=== PATIENT | female | born 1930 ===

== ENCOUNTER 2017-01-17 11:44 | Inpatient (IN) | payer MEDICARE, MEDICAID ==
[2017-01-17 11:44] VITALS: BMI 33.5
[2017-01-17 12:58] LABS: BASO # 0.2 K/uL (0.0-0.2); BASO % 1.3 % (0.0-2.0); EOS # 0.4 K/uL (0.0-0.7); HEMATOCRIT 45.3 % (34.0-47.0); LYMPH # 2.1 K/uL (1.0-4.3); LYMPH % 13.8 % (20.0-40.0); MEAN CELL VOLUME 81.4 fL (81.0-99.0); MEAN CORPUSCULAR HEMOGLOBIN 26.9 pg (27.0-31.0); MEAN CORPUSCULAR HGB CONC 33.1 g/dL (33.0-37.0); MONO # 0.7 K/uL (0.0-0.8); MONO % 4.9 % (0.0-10.0); NRBC % 0.2 % (0.0-2.0); RED CELL DISTRIBUTION WIDTH 14.9 % (11.5-14.5)
[2017-01-17 13:07] LABS: CHLORIDE 96 mmol/L (98-107); POTASSIUM 4.1 mmol/L (3.6-5.2); SODIUM 140 mmol/L (132-148)
[2017-01-17 13:09] LABS: GFR AFRICAN-AMERICAN > 60
[2017-01-17 13:10] LABS: ALB/GLOB RATIO 1.2 (1.0-2.1); ALKALINE PHOSPHATASE 79 U/L (38-126); ALT/SGPT 20 U/L (9-52); AST/SGOT 32 U/L (14-36); BILIRUBIN,TOTAL 1.1 mg/dL (0.2-1.3); BLOOD UREA NITROGEN 18 mg/dL (7-17); CARBON DIOXIDE 27 mmol/L (22-30); GLUCOSE,RANDOM 121 mg/dL (65-105)
[2017-01-17] MEDS ORDERED: Aspirin 325 mg EC Tablets PO STA (14:01)
[2017-01-17] MEDS ORDERED: Nitroglycerin 2% Ointment Foilpak UD TOP STA (14:01)
[2017-01-17] MEDS ORDERED: Aspirin 325 mg EC Tablets PO ONE (14:09)
[2017-01-17] MEDS ORDERED: Nitroglycerin 2% Ointment Foilpak UD TOP ONE (14:09)
--- NOTE | 2017-01-17 15:13 | C.PDOC ---
History Of Present Illness Pt c/o chest pain radiating to left shoulder/arm. Time Seen by Provider: 01/17/17 13:51 Chief Complaint (Nursing): Chest Pain History Per: Patient, Other (Home health aid) Onset/Duration Of Symptoms: Days (1) Current Symptoms Are (Timing): Still Present Severity: Moderate Quality: "Pain" Associated Symptoms: Other (dizziness) Modifying Factors: Other Indicated Below Exacerbating Factors: None Alleviating Factors: None Additional History Per: Prior Records Past Medical History Reviewed: Historical Data, Nursing Documentation, Vital Signs Vital Signs: Last Vital Signs Temp 98.9 F 01/17/17 14:17 Pulse 75 01/17/17 14:17 Resp 19 01/17/17 14:17 BP 156/82 H 01/17/17 14:17 Pulse Ox 98 01/17/17 14:17 - Medical History PMH: CAD, COPD, HTN, Hypercholesterolemia Surgical History: Cholecystectomy, Coronary Stent, - [facility] Procedures EXCISION OF STOMACH, ENDO, DIAGN (11/19/15) OTHER ENDOSCOPY OF SM INTEST (01/02/14) RADIOGRAPHY OF GALLBLADDER & BILE DUCT USING L OSM CONTRAST (11/21/15) RESECTION OF GALLBLADDER, PERCUTANEOUS ENDOSCOPIC APPROACH (11/21/15) ULTRASONOGRAPHY OF GALLBLADDER AND BILE DUCTS (11/19/15) Family History: States: Unknown Family Hx - Social History Hx Tobacco Use: No Hx Alcohol Use: No Hx Substance Use: No - Immunization History Hx Tetanus Toxoid Vaccination: Yes Hx Influenza Vaccination: Yes Hx Pneumococcal Vaccination: Yes Review Of Systems Except As Marked, All Systems Reviewed And Found Negative. Constitutional: Negative for: Fever Cardiovascular: Positive for: Chest Pain Respiratory: Positive for: Shortness of Breath (mild chronic). Negative for: Hemoptysis Gastrointestinal: Negative for: Vomiting, Abdominal Pain Musculoskeletal: Negative for: Leg Pain Skin: Negative for: Rash Neurological: Negative for: Weakness, Numbness, Seizures, Altered Mental Status Physical Exam - Physical Exam Appears: No Acute Distress, Chronically Ill Skin: Normal Color, Warm, Dry, No Rash Head: Atraumatic, Normacephalic Eye(s): bilateral: PERRL, EOMI Neck: Normal ROM, Supple Chest: Symmetrical, No Deformity Cardiovascular: Rhythm Regular Respiratory: Normal Breath Sounds, No Accessory Muscle Use Gastrointestinal/Abdominal: Soft, No Tenderness Back: No CVA Tenderness Extremity: Normal ROM, No Calf Tenderness Neurological/Psych: Oriented x3, Normal Motor, Normal Sensation ED Course And Treatment - Laboratory Results Result Diagrams: 01/17/17 12:50 01/17/17 12:50 ECG: Interpreted By Me, Viewed By Me ECG Rhythm: Sinus Rhythm, Nonspecific Changes ECG Interpretation: Abnormal Interpretation Of ECG: LVH with strain pattern. Rate From EC O2 Sat by Pulse Oximetry: 98 Pulse Ox Interpretation: Normal - Radiology CXR: Interpreted by Me, Viewed By Me CXR Interpretation: Yes: No Acute Disease Progress - Interventions Interventions:: Observation, Oxygen - Medications Administered Oral: Aspirin - Data Reviewed Data Reviewed: Lab, Diagnostic imaging, EKG, Old records - Patient Status Patient status: Partially improved - Continuity of Care Discussed patient case with:: Patient, ED Nurse, PMD - Patient Plan Patient Plan: Admission, Telemetry Disposition Discussed With DrStacie: Misty Castillo Comment: He agreed with current ED management and accepted pt on his service. Doctor Will See Patient In The: Hospital Counseled Patient/Family Regarding: Studies Performed, Diagnosis - Disposition Disposition: HOSPITALIZED Disposition Time: 15:17 Condition: FAIR - Clinical Impression Clinical Impression: Chest pain, Coronary artery disease
--- NOTE | 2017-01-17 16:09 | RAD ---
PROCEDURE: CHEST RADIOGRAPH, 1 VIEW HISTORY: chest pain COMPARISON: 11/14/2016 FINDINGS: LUNGS: Mild venous congestion. Patchy bibasilar airspace opacities. Small left pleural effusion. PLEURA: As above. CARDIOVASCULAR: Tortuous aorta. OSSEOUS STRUCTURES: Degenerative changes in the spine and shoulders. VISUALIZED UPPER ABDOMEN: Normal. OTHER FINDINGS: None. IMPRESSION: Mild venous congestion. Patchy bibasilar airspace opacities. Small left pleural effusion.
--- NOTE | 2017-01-17 20:55 | CP.PCM.HP ---
History of Present Illness - History of Present Illness History of Present Illness: COMPREHENSIVE HISTORY & PHYSICAL EXAM HPI 86 years old female with history of coronary artery disease with 2 stents complaining of retrosternal chest discomfort radiating to her left arm associated with diaphoresis and sweaty feeling. Pain is sometimes at rest and more on exertion. Patient had a stent inserted last year in circumflex and RCA artery. PAST HIST. Patient a history of insulin-dependent diabetes, hypertension, coronary artery disease, CHF, COPD, diverticulosis, peripheral arterial disease with stent insertion. PERSONAL HIST: Smoking. N Alcohol. N Allergy N Travel_- . FAMILY HIST : ROS : Constitutional: Negative for weight change, chills, night sweats Eyes: Negative for redness, swelling, itching, discharge, vision changes, blurry vision, double vision, glaucoma, cataracts, Ears: Negative for hearing loss, ringing, , tinnitus, vertigo Nose: Negative for rhinorrhea, stuffiness, sniffing, itching, postnasal drip, discoloration, nasal congestion and epistaxis. Throat: Negative for throat clearing, sore throat, hoarseness, difficulty swallowing and difficulty speaking. Respiratory: Negative for cough, chest tightness, sputum or phlegm, chronic cough, hemoptysis, wheezing, snoring at night, pleuritic chest pain and daytime somnolence. Cardiovascular:positive for chest pain, palpitations, orthopnea, PND, no Edema of legs, leg cramps, angina, claudication, , irregular heartbeat, Neurology: Negative for irritability, muscle weakness, numbness and tingling, seizures, tremors, migraines, slurred speech, syncope, memory loss, mood changes , recurrent headaches Gastrointestinal: Negative for difficulty swallowing, diarrhea, constipation, black stools, rectal bleeding, nausea, flatulence, reflux, poor appetite, changes in bowel habits, abdominal pain Genitourinary: Negative for frequent urination, hematuria, discharge, incontinence, urinary retention, frequent UTI, Psychiatric: Negative for depression, anxiety/panic, suicidal tendencies, Musculoskeletal: Negative for swollen joints, back pain, , neck pain, morning stiffness of joints, . Skin: Negative for rash, ulcers, itching, dry skin and pigmented lesions. P/E: Constitutional: Appears stated age and in no apparent distress. Head: Normocephalic. Ears: External ear canals patent without inflammation. Tympanic membranes intact with normal light reflex and landmark. Eyes: Pupils are central, bilaterally equal, symmetrical and reacts to light with normal movements and no icterus or pallor. Nose: External nares are patent. Mucosa is pink Mouth-Throat: Good general appearance and condition. No post-pharyngeal/oropharyngeal erythema and tonsillar hypertrophy. Good dental hygiene. Neck-Lymphatic: Neck is supple with normal ROM, no thyromegaly, lymph nodes or masses. JVD is normal with no carotid bruit. Lungs: Clear to percussion and auscultation with bilateral normal air entry. Cardiovascular: S1 and S2 are normal with no murmurs, gallops and rub. GI Exam: No hepatomegaly. Abdomen is soft and non-tender. No Organomegaly , masses or hernias are evident and bowel sounds are normal and active. Neurology: Higher function and all cranial nerves intact, with no gross motor or sensory deficit. Superficial and deep reflexes are normal with downwards planters. No cerebellar deficit with normal gait. Musculoskeletal: No tender spots with normal curvature of the spine with no swelling or restricted ROM of the small and large joints. Extremities: Homans sign absent. Intact pulses with no pitting edema, calf tenderness or skin color changes. Skin: No rash, eruptions or abnormal skin pigmentation LAB/RADIOLOGY: ASSESMENT : Unstable angina, coronary artery disease with previous stents. Well monitor the patient on telemetry with serial enzymes and EKG. Diabetes, hypertension stable. Peptic ulcer disease, stable Present on Admission - Present on Admission Any Indicators Present on Admission: No Past Patient History - Infectious Disease Hx of Infectious Diseases: None - Past Medical History & Family History Past Medical History?: Yes - Past Social History Smoking Status: Former Smoker - CARDIAC Hx Hypercholesterolemia: Yes Hx Hypertension: Yes - PULMONARY Hx Chronic Obstructive Pulmonary Disease (COPD): Yes - NEUROLOGICAL Hx Neurological Disorder: No - HEENT Hx HEENT Problems: Yes Hx Cataracts: Yes (BILAT.) - RENAL Hx Chronic Kidney Disease: No - ENDOCRINE/METABOLIC Hx Endocrine Disorders: Yes Hx Diabetes Mellitus Type 2: Yes - HEMATOLOGICAL/ONCOLOGICAL Hx Blood Disorders: No - INTEGUMENTARY Hx Dermatological Problems: No - MUSCULOSKELETAL/RHEUMATOLOGICAL Hx Falls: Yes - GASTROINTESTINAL Hx Gall Bladder Disease: Yes - GENITOURINARY/GYNECOLOGICAL Hx Genitourinary Disorders: No Other/Comment: TUBAL LIGATION,CEASEREAN X 2 - PSYCHIATRIC Hx Substance Use: No - SURGICAL HISTORY Hx Cholecystectomy: Yes Hx Coronary Stent: Yes - ANESTHESIA Hx Anesthesia: Yes Hx Anesthesia Reactions: No Hx Malignant Hyperthermia: No Meds Allergies/Adverse Reactions: Allergies Allergy/AdvReac Type Severity Reaction Status Date / Time cephalexin Allergy Intermediate RASH Verified 01/17/17 11:54 Penicillins Allergy Intermediate RASH Verified 01/17/17 11:54 lactose Allergy Mild ABDOMINAL Verified 01/17/17 11:54 DISCOMFORT Results - Vital Signs Recent Vital Signs: Last Vital Signs Temp 98.3 F 01/17/17 20:00 Pulse 78 01/17/17 20:00 Resp 20 01/17/17 20:00 BP 131/79 01/17/17 20:00 Pulse Ox 98 01/17/17 20:00 - Labs Result Diagrams: 01/17/17 12:50 01/17/17 12:50
[2017-01-17] MEDS ORDERED: INSULIN LISPRO MIX SC SCH (22:00)
[2017-01-17] MEDS: (Novolin R) Insulin Human Regular 100 units/ml vial SC SCH (22:40)
[2017-01-17] MEDS: Enoxaparin 30 mg Syringe SC SCH (22:57)
[2017-01-18] MEDS: (Novolin R) Insulin Human Regular 100 units/ml vial SC SCH ×4 (07:51→21:12)
[2017-01-18] MEDS: Enoxaparin 30 mg Syringe SC SCH ×2 (09:18→22:26)
--- NOTE | 2017-01-18 10:48 | CARD ---
APPROVED REPORT EKG Measurement Heart [id number] DC [id number] [id number] <Conclusion> Normal sinus rhythm Left ventricular hypertrophy with repolarization abnormality Abnormal ECG
--- NOTE | 2017-01-18 13:02 | CP.PCM.PN ---
Subjective - Date & Time of Evaluation Date of Evaluation: 01/18/17 Time of Evaluation: 13:01 - Subjective Subjective: NO CP DOCUMENTED TNI ARE NEG WBC 15.9 CXR ABNORMAL ID EVAL. FOR CLEARANCE FOR CATH Objective - Vital Signs/Intake and Output Vital Signs (last 24 hours): Temp Pulse Resp BP Pulse Ox 98 F 76 18 163/92 H 98 01/18/17 09:19 01/18/17 09:19 01/18/17 09:19 01/18/17 09:19 01/18/17 09:19 - Medications Medications: Current Medications Amlodipine Besylate (Norvasc) 10 mg PO DAILY [facility] Last Admin: 01/18/17 09:17 Dose: 10 mg Aspirin (Aspirin) 325 mg PO DAILY [facility] Last Admin: 01/18/17 09:18 Dose: 325 mg Enalapril Maleate (Vasotec) 5 mg PO DAILY [facility] Last Admin: 01/18/17 09:17 Dose: 5 mg Enoxaparin Sodium (Lovenox) 30 mg SC Q12 [facility] Last Admin: 01/18/17 09:18 Dose: 30 mg Ergocalciferol (Drisdol 50,000 Intl Units Cap) 50,000 cap PO QWK [facility] Famotidine (Pepcid) 40 mg PO DAILY [facility] Last Admin: 01/18/17 09:17 Dose: 40 mg Home Med (Insulin Lispro Mix 75/25 [Humalog Mix 75/25]) 45 unit SC AMHS [facility] Home Med (Insulin Lispro Mix 75/25 [Humalog Mix 75/25]) 50 unit SC HS [facility] Home Med (Linagliptin [Tradjenta]) 5 mg PO DAILY [facility] Insulin Human Regular (Novolin R) 0 unit SC ACHS [facility] PRN Reason: Protocol Labetalol HCl (Trandate) 100 mg PO BID [facility] Last Admin: 01/18/17 09:17 Dose: 100 mg
[2017-01-18] MEDS: INSULIN LISPRO MIX SC SCH ×2 (15:00→22:26)
--- NOTE | 2017-01-18 15:56 | CP.PCM.CON ---
History of Present Illness - History of Present Illness History of Present Illness: INFECTIOUS DISEASE CONSULTATION; History of Present Illness 86-year-old female with history off IDDM, hypertension, CAD with 2 stents placed last year and circumflex and RCA artery comes to the ER on 01/17/17 with complaints off retrosternal chest pain and discomfort radiating to her left arm and back with diaphoresis and not feeling well. Patient also states he sometimes experiences pain at rest and more with exertion. Patient presently being followed up closely for acute coronary syndrome, unstable angina and chest pain. Infectious disease consultation requested by PMD as patient was found to have increasing leukocytosis. On further questioning patient complains off lower abdominal discomfort and frequency of urination. Patient denies history of hematuria or kidney stones. Patient denies any change or altered bowel movements. Denies any history of melanotic stools, nausea vomiting. Patient denies any cough or expectoration. Denies any hemoptysis or hematemesis. Patient denies any leg pains or claudication. Medical History PMH: HTN, Hypercholesterolemia,IDDM, PUD, HISTORY OF DIVERTICULOSIS,CORONARY ARTERY DISEASE S/P 2 STENTS PLACED LAST YEAR. Other Surgeries: see [facility] procedures Family History: States: Unknown Family Hx - Social History Hx Alcohol Use: No Hx Substance Use: No - Immunization History Hx Tetanus Toxoid Vaccination: Yes Hx Influenza Vaccination: Yes Hx Pneumococcal Vaccination: Yes. ALLERGIES; PENICILLIN, LACTOSE. Review of Systems - Constitutional Constitutional: absent: Chills, Fever, Malaise - EENT Eyes: absent: Change in Vision Ears: absent: Ear Discharge, Ear Pain Nose/Mouth/Throat: absent: Nasal Discharge, Sinus Pressure, Hoarsness, Mouth Lesions - Cardiovascular Cardiovascular: Chest Pain, Chest Pain at Rest, Dyspnea on Exertion. absent: Claudication, Leg Edema - Respiratory Respiratory: absent: Cough, Hemoptysis - Gastrointestinal Gastrointestinal: Abdominal Pain (LOWER ABDOMINAL DISCOMFORT). absent: Change in Bowel Habits, Diarrhea, Nausea, Vomiting - Genitourinary Genitourinary: Urinary Frequency, Urinary Urgency, Freq UTI. absent: Difficulty Urinating - Neurological Neurological: absent: Headaches - Hematologic/Lymphatic Hematologic: As Per HPI. absent: Easy Bleeding, Easy Bruising, Lymphadenopathy Past Patient History - Infectious Disease Hx of Infectious Diseases: None - Past Medical History & Family History Past Medical History?: Yes - Past Social History Smoking Status: Former Smoker - CARDIAC Hx Hypercholesterolemia: Yes Hx Hypertension: Yes - PULMONARY Hx Chronic Obstructive Pulmonary Disease (COPD): Yes - NEUROLOGICAL Hx Neurological Disorder: No - HEENT Hx HEENT Problems: Yes Hx Cataracts: Yes (BILAT.) - RENAL Hx Chronic Kidney Disease: No - ENDOCRINE/METABOLIC Hx Endocrine Disorders: Yes Hx Diabetes Mellitus Type 2: Yes - HEMATOLOGICAL/ONCOLOGICAL Hx Blood Disorders: No - INTEGUMENTARY Hx Dermatological Problems: No - MUSCULOSKELETAL/RHEUMATOLOGICAL Hx Falls: Yes - GASTROINTESTINAL Hx Gall Bladder Disease: Yes - GENITOURINARY/GYNECOLOGICAL Hx Genitourinary Disorders: No Other/Comment: TUBAL LIGATION,CEASEREAN X 2 - PSYCHIATRIC Hx Substance Use: No - SURGICAL HISTORY Hx Cholecystectomy: Yes Hx Coronary Stent: Yes - ANESTHESIA Hx Anesthesia: Yes Hx Anesthesia Reactions: No Hx Malignant Hyperthermia: No Meds Allergies/Adverse Reactions: Allergies Allergy/AdvReac Type Severity Reaction Status Date / Time cephalexin Allergy Intermediate RASH Verified 01/17/17 11:54 Penicillins Allergy Intermediate RASH Verified 01/17/17 11:54 lactose Allergy Mild ABDOMINAL Verified 01/17/17 11:54 DISCOMFORT - Medications Medications: Current Medications Amlodipine Besylate (Norvasc) [address] [facility] Last Admin: 01/18/17 09:17 Dose: 10 mg Aspirin (Aspirin) [address] [facility] Last Admin: 01/18/17 09:18 Dose: 325 mg Enalapril Maleate (Vasotec) [address] [facility] Last Admin: 01/18/17 09:17 Dose: 5 mg Enoxaparin Sodium (Lovenox) [address] [facility] Last Admin: 01/18/17 09:18 Dose: 30 mg Ergocalciferol (Drisdol 50,000 Intl Units Cap) 50,[address] [facility] Famotidine (Pepcid) [address] [facility] Last Admin: 01/18/17 09:17 Dose: 40 mg Home Med (Insulin Lispro Mix 75/25 [Humalog Mix 75/25]) [address] [facility] Home Med (Insulin Lispro Mix 75/25 [Humalog Mix 75/25]) [address] [facility] Home Med (Linagliptin [Tradjenta]) [address] [facility] Insulin Human Regular (Novolin R) [address] [facility] PRN Reason: Protocol Labetalol HCl (Trandate) 100 mg PO BID [facility] Last Admin: 01/18/17 09:17 Dose: 100 mg Physical Exam - Constitutional Appears: No Acute Distress - Head Exam Head Exam: NORMAL INSPECTION - Eye Exam Eye Exam: EOMI, PERRL. absent: Scleral icterus - ENT Exam ENT Exam: Normal Oropharynx - Neck Exam Neck exam: Positive for: Normal Inspection - Respiratory Exam Respiratory Exam: Clear to Auscultation Bilateral, NORMAL BREATHING PATTERN - Cardiovascular Exam Cardiovascular Exam: REGULAR RHYTHM, +S1, +S2 - GI/Abdominal Exam GI & Abdominal Exam: Normal Bowel Sounds (.), Soft, Tenderness (LOWER QUADRANTS) . absent: Distended, Guarding - Extremities Exam Extremities exam: Positive for: pedal pulses present. Negative for: calf tenderness, pedal edema - Back Exam Back exam: absent: CVA tenderness (L), CVA tenderness (R) - Neurological Exam Neurological exam: Alert, CN II-XII Intact, Oriented x3, Reflexes Normal - Psychiatric Exam Psychiatric exam: Normal Mood - Skin Skin Exam: Normal Color, Warm Results - Vital Signs Recent Vital Signs: Last Vital Signs Temp 98 F 01/18/17 09:19 Pulse 76 01/18/17 09:19 Resp 18 01/18/17 09:19 BP 163/92 H 01/18/17 09:19 Pulse Ox 98 01/18/17 09:19 - Labs Result Diagrams: 01/17/17 12:50 01/17/17 12:50 Labs: Laboratory Results - last 24 hr 01/17/17 01/17/17 01/18/17 21:55 22:18 06:10 POC Glucose (mg/dL) 189 H Total Creatine Kinase 69 54 CK-MB (Mass) 0.69 0.50 Troponin I, Quant 0.0120 < 0.0120 01/18/17 01/18/17 01/18/17 06:35 10:57 14:06 POC Glucose (mg/dL) 147 H 207 H Total Creatine Kinase 59 CK-MB (Mass) 0.40 Troponin I, Quant < 0.0120 - Imaging and Cardiology Chest x-ray Status: Report reviewed by me (mild venous congestion. Patchy bibasilar air space opacities. Small left pleural effusion.) Assessment & Plan (1) Pneumonia Assessment and Plan: chest x-ray 01/17/17 showing moderate venous congestion. Patchy bibasilar airspace opacities Small left pleural effusion. Check proBNP Start IV Azactam 2 g loading dose followed by 1 g every 8 hourly. 01/18/17. Patient has tolerated Azactam in the past. Start IV vancomycin 1 g q 24 hourly for gram-positive coverage while awaiting cultures. Check atypical titers. esr,crp. mrsa SCREEN. Status: Acute (2) Leukocytosis Assessment and Plan: PANCULTURES ua URINE CULTURE. pATIENT STARTED EMPIRICALLY ON BROAD-SPECTRUM ANTIBIOTICS.. Status: Acute (3) CAD (coronary artery disease) Assessment and Plan: W/U IN PROGRESS. CARDIAC ENZYMES-TROPONINS NEGATIVE TO DATE. PATIENT HAS HISTORY OF CORONARY ARTERY DISEASE STATUS POST STENTS X2 IN 2016. Status: Acute (4) Chest pain Status: Acute (5) Diabetes 1.5, managed as type 2 Status: Acute (6) Lower abdominal pain Assessment and Plan: PELVIC ULTRASOUND RULE OUT MASS /VS PID follow-up UA/ URINE CULTURE. Status: Acute
[2017-01-18 16:51] VITALS: RESP 20
[2017-01-18 17:24] LABS: RBC URINE 10 /hpf (0-3); URINE BACTERIA FEW (<OCC); URINE BILIRUBIN NEGATIVE (NEGATIVE); URINE BLOOD 1+ (NEGATIVE); URINE COLOR Yellow (YELLOW); URINE GLUCOSE (UA) 1+ mg/dL (Normal); URINE KETONE NEGATIVE (NEGATIVE); URINE LEUKOCYTE ESTERASE 3+ Leu/uL (Negative); URINE PROTEIN NEGATIVE (NEGATIVE); URINE UROBILINOGEN NORMAL mg/dL (0.2-1.0); WBC URINE 33 /hpf (0-5)
[2017-01-18] MEDS: Vancomycin 1 gm/NS 200 ml 200 ML IVPB SCH (17:30)
[2017-01-18] MEDS ORDERED: Aztreonam 2 GM in Sodium Chloride 0.9% 100 ML IVPB ONE (18:00)
--- NOTE | 2017-01-18 18:59 | US ---
HISTORY: LOWER ABDOMINAL PAIN R/O PID COMPARISON: None available. TECHNIQUE: Transvaginal pelvic ultrasound was performed. FINDINGS: UTERUS: Measures 6.8 x 3.3 x 4.0 cm. Anteverted, normal in size and appearance. No fibroid or other mass lesion seen. ENDOMETRIUM: Measures 12 mm in diameter. Unremarkable. CERVIX: No cervical abnormality identified. RIGHT OVARY: Not visualized. LEFT OVARY: Not visualized. FREE FLUID: No significant free fluid noted. OTHER FINDINGS: None. IMPRESSION: Anteverted normal appearing the uterus. No evidence of fibroid uterus. The central endometrial echo complex is tech for postmenopausal status, clinical correlation and follow-up is advised. Both ovaries are not visualized, no adnexal masses.
[2017-01-19] MEDS: Aztreonam 1 GM in Sodium Chloride 0.9% 100 ML IVPB SCH ×3 (02:36→17:38)
[2017-01-19 07:13] LABS: BASO # 0.2 K/uL (0.0-0.2); BASO % 1.2 % (0.0-2.0); EOS # 0.3 K/uL (0.0-0.7); HEMATOCRIT 40.1 % (34.0-47.0); LYMPH # 1.4 K/uL (1.0-4.3); LYMPH % 10.7 % (20.0-40.0); MEAN CELL VOLUME 80.9 fL (81.0-99.0); MEAN CORPUSCULAR HEMOGLOBIN 26.7 pg (27.0-31.0); MEAN PLATELET VOLUME 9.8 fL (7.2-11.7); MONO # 0.7 K/uL (0.0-0.8); MONO % 5.1 % (0.0-10.0); NRBC % 0.1 % (0.0-2.0); RED CELL DISTRIBUTION WIDTH 14.7 % (11.5-14.5); WHITE BLOOD COUNT 13.4 K/uL (4.8-10.8)
[2017-01-19] MEDS: (Novolin R) Insulin Human Regular 100 units/ml vial SC SCH ×4 (07:23→21:21)
[2017-01-19 07:44] LABS: POTASSIUM 3.8 mmol/L (3.6-5.2)
[2017-01-19] MEDS: Enoxaparin 30 mg Syringe SC SCH ×2 (10:55→21:39)
[2017-01-19] MEDS: INSULIN LISPRO MIX SC SCH ×2 (11:57→21:39)
--- NOTE | 2017-01-19 13:51 | CP.PCM.PN ---
Subjective - Date & Time of Evaluation Date of Evaluation: 01/19/17 Time of Evaluation: 13:50 - Subjective Subjective: CHIEF COMPLAINTS TODAY : LOWER ABD PAIN ROS. HEENT : N. Resp : No cough, wheezing ,pleuritic CP ,or hemoptysis Cardio : No anginal CP, PND, orthopnea, palpitation GI : POS abd.pain, NO n/v ,diarrhea or GI bleeding . [employer] : No headache, vertigo, focal deficit. Musculoskel : No joint swelling , Derm : No rash Psych : Normal affect. Ext : No swelling ,calf pain PE. Pt. is alert awake in no distress. V.S As noted in the chart Head ,ear nose,throat and eyes : Normal. Neck : Supple with normal carotids. Lungs: Clear air entry. Heart : S1 & S2 normal with S4. No murmur. Abd : Soft non tender with normal bowel sounds. Neuro : Moves all ext. with no localized deficit. Ext : No edema with intact pulses.Non tender calves Derm : No rashes or decubitus ulcer. LABS/RADIOLOGY: VAG U/S NEG ASSESSMENT/PLAN : PT WILL NEED CATH AFTER CLEARANCE FROM ID Objective - Vital Signs/Intake and Output Vital Signs (last 24 hours): Temp Pulse Resp BP Pulse Ox 97.3 F L 66 20 143/76 98 01/19/17 07:45 01/19/17 07:53 01/19/17 07:45 01/19/17 10:59 01/19/17 07:45 - Medications Medications: Current Medications Amlodipine Besylate (Norvasc) 10 mg PO DAILY [facility] Last Admin: 01/19/17 10:57 Dose: 10 mg Aspirin (Aspirin) 325 mg PO DAILY [facility] Last Admin: 01/19/17 10:51 Dose: 325 mg Enalapril Maleate (Vasotec) 5 mg PO DAILY [facility] Last Admin: 01/19/17 10:59 Dose: 5 mg Enoxaparin Sodium (Lovenox) 30 mg SC Q12 [facility] Last Admin: 01/19/17 10:55 Dose: 30 mg Ergocalciferol (Drisdol 50,000 Intl Units Cap) 50,000 cap PO QWK [facility] Famotidine (Pepcid) 40 mg PO DAILY [facility] Last Admin: 01/19/17 10:58 Dose: 40 mg Home Med (Insulin Lispro Mix 75/25 [Humalog Mix 75/25]) 45 unit SC AMHS [facility] Last Admin: 01/19/17 11:57 Dose: Not Given Aztreonam 1 gm/ Sodium (Chloride) 100 mls @ 100 mls/hr IVPB Q8H [facility] Last Admin: 01/19/17 10:53 Dose: 100 mls/hr Vancomycin/Sodium Chloride (Vancocin) 200 mls @ 133.333 mls/hr IVPB Q24H [facility] Stop: 01/23/17 17:01 Last Admin: 01/18/17 17:30 Dose: 133.333 mls/hr Insulin Human Regular (Novolin R) 0 unit SC ACHS [facility] PRN Reason: Protocol Last Admin: 01/19/17 12:23 Dose: 2 unit Labetalol HCl (Trandate) 100 mg PO BID [facility] Last Admin: 01/19/17 10:59 Dose: 100 mg - Labs Labs: 01/19/17 06:55 01/19/17 06:54
--- NOTE | 2017-01-19 16:43 | CP.PCM.PN ---
Subjective - Date & Time of Evaluation Date of Evaluation: 01/19/17 Time of Evaluation: 16:43 - Subjective Subjective: CHIEF COMPLAINTS TODAY : C/O LOWER ABD PAIN Denies cough or Shortness of breath . Complains of frequency. Denies hematuria/or dysuria ROS. HEENT : N. Resp : No cough, wheezing ,pleuritic CP ,or hemoptysis Cardio : No anginal CP, PND, orthopnea, palpitation GI : POS abd.pain, NO n/v ,diarrhea or GI bleeding . 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 Musculoskel : No joint swelling , Derm : No rash Psych : Normal affect. Ext : No swelling ,calf pain PE. Pt. is alert awake in no distress. V.S As noted in the chart Head ,ear nose,throat and eyes : Normal. Neck : Supple with normal carotids. Lungs: Clear air entry. Heart : S1 & S2 normal with S4. No murmur. Abd : Soft non tender with normal bowel sounds. Neuro : Moves all ext. with no localized deficit. Ext : No edema with intact pulses.Non tender calves Derm : No rashes or decubitus ulcer. LABS/RADIOLOGY: PELVIC U/S NEG WBC IMPROVING.13.4 uRINALYSIS URINARY LEUKOCYTES 3+, WBC 33, 10 RBC, bacteria few Urine culture 10-50,000 colonies forming units/mL questionable contaminant. ASSESSMENT : chest pain /unstable angina HX CAD S/P STENT Probable UTI.. Doubt pneumonia / CHF. LEUKOCYTOSIS-IMPROVING DM PLAN CULTURES NEGATIVE. OKAY FOR CARDIAC CATHETER IN A.M. CONTINUE ANTIBIOTICS Objective - Vital Signs/Intake and Output Vital Signs (last 24 hours): Temp Pulse Resp BP Pulse Ox 98.6 F 70 20 134/73 95 01/19/17 15:55 01/19/17 15:55 01/19/17 15:55 01/19/17 15:55 01/19/17 15:55 - Medications Medications: Current Medications Amlodipine Besylate (Norvasc) 10 mg PO DAILY [facility] Last Admin: 01/19/17 10:57 Dose: 10 mg Aspirin (Aspirin) 325 mg PO DAILY [facility] Last Admin: 01/19/17 10:51 Dose: 325 mg Enalapril Maleate (Vasotec) 5 mg PO DAILY [facility] Last Admin: 01/19/17 10:59 Dose: 5 mg Enoxaparin Sodium (Lovenox) 30 mg SC Q12 [facility] Last Admin: 01/19/17 10:55 Dose: 30 mg Ergocalciferol (Drisdol 50,000 Intl Units Cap) 50,000 cap PO QWK [facility] Famotidine (Pepcid) 40 mg PO DAILY [facility] Last Admin: 01/19/17 10:58 Dose: 40 mg Home Med (Insulin Lispro Mix 75/25 [Humalog Mix 75/25]) 45 unit SC AMHS [facility] Last Admin: 01/19/17 11:57 Dose: Not Given Aztreonam 1 gm/ Sodium (Chloride) 100 mls @ 100 mls/hr IVPB Q8H [facility] Last Admin: 01/19/17 10:53 Dose: 100 mls/hr Vancomycin/Sodium Chloride (Vancocin) 200 mls @ 133.333 mls/hr IVPB Q24H [facility] Stop: 01/23/17 17:01 Last Admin: 01/18/17 17:30 Dose: 133.333 mls/hr Insulin Human Regular (Novolin R) 0 unit SC ACHS [facility] PRN Reason: Protocol Last Admin: 01/19/17 12:23 Dose: 2 unit Labetalol HCl (Trandate) 100 mg PO BID [facility] Last Admin: 01/19/17 10:59 Dose: 100 mg - Labs Labs: 01/19/17 06:55 01/19/17 06:54 Assessment and Plan (1) Pneumonia Status: Acute (2) Leukocytosis Status: Acute (3) CAD (coronary artery disease) Status: Acute (4) Chest pain Status: Acute (5) Diabetes 1.5, managed as type 2 Status: Acute (6) Lower abdominal pain Status: Acute (7) UTI (urinary tract infection) Status: Acute
[2017-01-19] MEDS: Vancomycin 1 gm/NS 200 ml 200 ML IVPB SCH (17:04)
[2017-01-20] MEDS: Aztreonam 1 GM in Sodium Chloride 0.9% 100 ML IVPB SCH ×3 (01:42→18:21)
[2017-01-20] MEDS: (Novolin R) Insulin Human Regular 100 units/ml vial SC SCH ×4 (07:30→21:57)
[2017-01-20] MEDS: Enoxaparin 30 mg Syringe SC SCH ×2 (09:45→22:01)
[2017-01-20] MEDS: INSULIN LISPRO MIX SC SCH ×2 (10:01→22:01)
--- NOTE | 2017-01-20 13:12 | CP.PCM.PN ---
Subjective - Date & Time of Evaluation Date of Evaluation: 01/20/17 Time of Evaluation: 13:11 - Subjective Subjective: CHIEF COMPLAINTS TODAY : NO CP ROS. HEENT : N. Resp : No cough, wheezing ,pleuritic CP ,or hemoptysis Cardio : No anginal CP, PND, orthopnea, palpitation GI : POS abd.pain, NO n/v ,diarrhea or GI bleeding . RADIOLOGY PHYSICIAN : No headache, vertigo, focal deficit. Musculoskel : No joint swelling , Derm : No rash Psych : Normal affect. Ext : No swelling ,calf pain PE. Pt. is alert awake in no distress. V.S As noted in the chart Head ,ear nose,throat and eyes : Normal. Neck : Supple with normal carotids. Lungs: Clear air entry. Heart : S1 & S2 normal with S4. No murmur. Abd : Soft non tender with normal bowel sounds. Neuro : Moves all ext. with no localized deficit. Ext : No edema with intact pulses.Non tender calves Derm : No rashes or decubitus ulcer. LABS/RADIOLOGY: VAG U/S NEG ASSESSMENT/PLAN : FOR CATH TODAY Objective - Vital Signs/Intake and Output Vital Signs (last 24 hours): Temp Pulse Resp BP Pulse Ox 98.2 F 73 20 136/76 97 01/20/17 08:18 01/20/17 08:18 01/20/17 08:18 01/20/17 09:42 01/20/17 08:18 - Medications Medications: Current Medications Amlodipine Besylate (Norvasc) 10 mg PO DAILY [facility] Last Admin: 01/20/17 09:41 Dose: 10 mg Aspirin (Aspirin) 325 mg PO DAILY [facility] Last Admin: 01/20/17 09:39 Dose: 325 mg Enalapril Maleate (Vasotec) 5 mg PO DAILY [facility] Last Admin: 01/20/17 09:42 Dose: 5 mg Enoxaparin Sodium (Lovenox) 30 mg SC Q12 [facility] Last Admin: 01/20/17 09:45 Dose: Not Given Ergocalciferol (Drisdol 50,000 Intl Units Cap) 50,000 cap PO QWK [facility] Famotidine (Pepcid) 40 mg PO DAILY [facility] Last Admin: 01/20/17 09:41 Dose: 40 mg Home Med (Insulin Lispro Mix 75/25 [Humalog Mix 75/25]) 45 unit SC AMHS [facility] Last Admin: 01/20/17 10:01 Dose: Not Given Aztreonam 1 gm/ Sodium (Chloride) 100 mls @ 100 mls/hr IVPB Q8H [facility] Last Admin: 01/20/17 09:39 Dose: 100 mls/hr Vancomycin/Sodium Chloride (Vancocin) 200 mls @ 133.333 mls/hr IVPB Q24H [facility] Stop: 01/23/17 17:01 Last Admin: 01/19/17 17:04 Dose: 133.333 mls/hr Insulin Human Regular (Novolin R) 0 unit SC ACHS [facility] PRN Reason: Protocol Last Admin: 01/20/17 07:30 Dose: Not Given Labetalol HCl (Trandate) 100 mg PO BID [facility] Last Admin: 01/20/17 09:42 Dose: 100 mg - Labs Labs: 01/19/17 06:55 01/19/17 06:54
[2017-01-20] MEDS: Vancomycin 1 gm/NS 200 ml 200 ML IVPB SCH (19:42)
--- NOTE | 2017-01-20 21:33 | CP.PCM.PN ---
Subjective - Date & Time of Evaluation Date of Evaluation: 01/20/17 Time of Evaluation: 21:33 - Subjective Subjective: CHIEF COMPLAINTS TODAY : C/O LOWER ABD PAIN Denies cough or Shortness of breath DENIES CHEST PAIN. ROS. HEENT : N. Resp : No cough, wheezing ,pleuritic CP ,or hemoptysis Cardio : No anginal CP, PND, orthopnea, palpitation GI : POS abd.pain, NO n/v ,diarrhea or GI bleeding . 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 Musculoskel : No joint swelling , Derm : No rash Psych : Normal affect. Ext : No swelling ,calf pain PE. Pt. is alert awake in no distress. V.S As noted in the chart Head ,ear nose,throat and eyes : Normal. Neck : Supple with normal carotids. Lungs: Clear air entry. Heart : S1 & S2 normal with S4. No murmur. Abd : Soft non tender with normal bowel sounds. Neuro : Moves all ext. with no localized deficit. Ext : No edema with intact pulses.Non tender calves Derm : No rashes or decubitus ulcer. LABS/RADIOLOGY: PELVIC U/S NEG WBC IMPROVING.13.4 uRINALYSIS URINARY LEUKOCYTES 3+, WBC 33, 10 RBC, bacteria few Urine culture 10-50,000 colonies forming units/mL questionable contaminant. ASSESSMENT : chest pain /unstable angina HX CAD S/P STENT Probable UTI.. Doubt pneumonia / CHF. LEUKOCYTOSIS-IMPROVING DM PLAN; PATIENT FOR CARDIAC CATHETERIZATION TODAY CONTINUE ANTIBIOTICS PATIENT ON iv AZACTAM 1 G EVERY 8 HOURLY IV VANCOMYCIN 1 G EVERY 24 HOURLY. Objective - Vital Signs/Intake and Output Vital Signs (last 24 hours): Temp Pulse Resp BP Pulse Ox 98.5 F 71 20 165/82 H 97 01/20/17 17:45 01/20/17 18:30 01/20/17 17:45 01/20/17 17:45 01/20/17 17:45 - Medications Medications: Current Medications Amlodipine Besylate (Norvasc) 10 mg PO DAILY [facility] Last Admin: 01/20/17 09:41 Dose: 10 mg Aspirin (Aspirin) 325 mg PO DAILY [facility] Last Admin: 01/20/17 09:39 Dose: 325 mg Enalapril Maleate (Vasotec) 5 mg PO DAILY [facility] Last Admin: 01/20/17 09:42 Dose: 5 mg Enoxaparin Sodium (Lovenox) 30 mg SC Q12 [facility] Last Admin: 01/20/17 09:45 Dose: Not Given Ergocalciferol (Drisdol 50,000 Intl Units Cap) 50,000 cap PO QWK [facility] Famotidine (Pepcid) 40 mg PO DAILY [facility] Last Admin: 01/20/17 09:41 Dose: 40 mg Home Med (Insulin Lispro Mix 75/25 [Humalog Mix 75/25]) 45 unit SC AMHS [facility] Last Admin: 01/20/17 10:01 Dose: Not Given Aztreonam 1 gm/ Sodium (Chloride) 100 mls @ 100 mls/hr IVPB Q8H [facility] Last Admin: 01/20/17 18:21 Dose: 100 mls/hr Vancomycin/Sodium Chloride (Vancocin) 200 mls @ 133.333 mls/hr IVPB Q24H [facility] Stop: 01/23/17 17:01 Last Admin: 01/20/17 19:42 Dose: 133.333 mls/hr Insulin Human Regular (Novolin R) 0 unit SC ACHS [facility] PRN Reason: Protocol Last Admin: 01/20/17 18:20 Dose: Not Given Labetalol HCl (Trandate) 100 mg PO BID [facility] Last Admin: 01/20/17 18:21 Dose: 100 mg - Labs Labs: 01/19/17 06:55 01/19/17 06:54 Assessment and Plan (1) Leukocytosis Status: Acute (2) CAD (coronary artery disease) Status: Acute (3) Chest pain Status: Acute (4) Diabetes 1.5, managed as type 2 Status: Acute (5) Lower abdominal pain Status: Acute (6) UTI (urinary tract infection) Status: Acute (7) Pneumonia Status: Acute
[2017-01-21] MEDS: Aztreonam 1 GM in Sodium Chloride 0.9% 100 ML IVPB SCH ×3 (02:06→17:03)
[2017-01-21] MEDS: (Novolin R) Insulin Human Regular 100 units/ml vial SC SCH ×4 (07:29→21:32)
[2017-01-21] MEDS: INSULIN LISPRO MIX SC SCH ×2 (09:49→21:33)
[2017-01-21] MEDS: Enoxaparin 30 mg Syringe SC SCH ×2 (09:49→21:33)
--- NOTE | 2017-01-21 13:39 | CP.PCM.PN ---
Subjective - Date & Time of Evaluation Date of Evaluation: 01/21/17 Time of Evaluation: 13:38 - Subjective Subjective: CHIEF COMPLAINTS TODAY : NO CP ROS. HEENT : N. Resp : No cough, wheezing ,pleuritic CP ,or hemoptysis Cardio : No anginal CP, PND, orthopnea, palpitation GI : POS abd.pain, NO n/v ,diarrhea or GI bleeding . 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 Musculoskel : No joint swelling , Derm : No rash Psych : Normal affect. Ext : No swelling ,calf pain PE. Pt. is alert awake in no distress. V.S As noted in the chart Head ,ear nose,throat and eyes : Normal. Neck : Supple with normal carotids. Lungs: Clear air entry. Heart : S1 & S2 normal with S4. No murmur. Abd : Soft non tender with normal bowel sounds. Neuro : Moves all ext. with no localized deficit. Ext : No edema with intact pulses.Non tender calves Derm : No rashes or decubitus ulcer. LABS/RADIOLOGY: VAG U/S NEG ASSESSMENT/PLAN : CATH , MID LAD LESION , D/W IC FOR STENT Objective - Vital Signs/Intake and Output Vital Signs (last 24 hours): Temp Pulse Resp BP Pulse Ox 98.1 F 64 20 150/80 96 01/21/17 08:00 01/21/17 08:36 01/21/17 08:00 01/21/17 09:50 01/21/17 08:00 Intake and Output: 01/21/17 01/21/17 11:59 23:59 Intake Total 300 Balance 300 - Medications Medications: Current Medications Amlodipine Besylate (Norvasc) 10 mg PO DAILY [facility] Last Admin: 01/21/17 09:49 Dose: 10 mg Aspirin (Aspirin) 325 mg PO DAILY [facility] Last Admin: 01/21/17 09:50 Dose: 325 mg Enalapril Maleate (Vasotec) 5 mg PO DAILY [facility] Last Admin: 01/21/17 09:50 Dose: 5 mg Enoxaparin Sodium (Lovenox) 30 mg SC Q12 [facility] Last Admin: 01/21/17 09:49 Dose: 30 mg Ergocalciferol (Drisdol 50,000 Intl Units Cap) 50,000 cap PO QWK [facility] Famotidine (Pepcid) 40 mg PO DAILY [facility] Last Admin: 01/21/17 09:49 Dose: 40 mg Home Med (Insulin Lispro Mix 75/25 [Humalog Mix 75/25]) 45 unit SC AMHS [facility] Last Admin: 01/21/17 09:49 Dose: 45 unit Aztreonam 1 gm/ Sodium (Chloride) 100 mls @ 100 mls/hr IVPB Q8H [facility] Last Admin: 01/21/17 09:48 Dose: 100 mls/hr Vancomycin/Sodium Chloride (Vancocin) 200 mls @ 133.333 mls/hr IVPB Q24H [facility] Stop: 01/23/17 17:01 Last Admin: 01/20/17 19:42 Dose: 133.333 mls/hr Insulin Human Regular (Novolin R) 0 unit SC ACHS [facility] PRN Reason: Protocol Last Admin: 01/21/17 12:48 Dose: Not Given Labetalol HCl (Trandate) 100 mg PO BID [facility] Last Admin: 01/21/17 09:50 Dose: 100 mg - Labs Labs: 01/19/17 06:55 01/19/17 06:54
[2017-01-21 14:29] LABS: BASO # 0.1 K/uL (0.0-0.2); BASO % 1.2 % (0.0-2.0); EOS # 0.3 K/uL (0.0-0.7); HEMATOCRIT 38.9 % (34.0-47.0); LYMPH # 1.4 K/uL (1.0-4.3); LYMPH % 11.9 % (20.0-40.0); MEAN CELL VOLUME 81.2 fL (81.0-99.0); MEAN CORPUSCULAR HEMOGLOBIN 26.6 pg (27.0-31.0); MEAN CORPUSCULAR HGB CONC 32.7 g/dL (33.0-37.0); MEAN PLATELET VOLUME 9.9 fL (7.2-11.7); MONO # 0.5 K/uL (0.0-0.8); MONO % 4.5 % (0.0-10.0); RED CELL DISTRIBUTION WIDTH 14.3 % (11.5-14.5); WHITE BLOOD COUNT 11.4 K/uL (4.8-10.8)
[2017-01-21 14:35] LABS: POTASSIUM 3.9 mmol/L (3.6-5.2)
[2017-01-21 14:38] LABS: CALCIUM 8.7 mg/dl (8.6-10.4)
[2017-01-21] MEDS: Vancomycin 1 gm/NS 200 ml 200 ML IVPB SCH (18:12)
--- NOTE | 2017-01-21 22:28 | CP.PCM.CON ---
History of Present Illness - History of Present Illness History of Present Illness: 86 F with Hx of CAD s/p L Cx stent, HTN, Hyperlipidemia s/p cath with LAD disease For PCI on Monday at [place] Currently Chest pain free D/W patient and the daughter Past Patient History - Infectious Disease Hx of Infectious Diseases: None - Past Medical History & Family History Past Medical History?: Yes - Past Social History Smoking Status: Former Smoker - CARDIAC Hx Hypercholesterolemia: Yes Hx Hypertension: Yes - PULMONARY Hx Chronic Obstructive Pulmonary Disease (COPD): Yes - NEUROLOGICAL Hx Neurological Disorder: No - HEENT Hx HEENT Problems: Yes Hx Cataracts: Yes (BILAT.) - RENAL Hx Chronic Kidney Disease: No - ENDOCRINE/METABOLIC Hx Endocrine Disorders: Yes Hx Diabetes Mellitus Type 2: Yes - HEMATOLOGICAL/ONCOLOGICAL Hx Blood Disorders: No - INTEGUMENTARY Hx Dermatological Problems: No - MUSCULOSKELETAL/RHEUMATOLOGICAL Hx Falls: Yes - GASTROINTESTINAL Hx Gall Bladder Disease: Yes - GENITOURINARY/GYNECOLOGICAL Hx Genitourinary Disorders: No Other/Comment: TUBAL LIGATION,CEASEREAN X 2 - PSYCHIATRIC Hx Substance Use: No - SURGICAL HISTORY Hx Cholecystectomy: Yes Hx Coronary Stent: Yes - ANESTHESIA Hx Anesthesia: Yes Hx Anesthesia Reactions: No Hx Malignant Hyperthermia: No Meds Allergies/Adverse Reactions: Allergies Allergy/AdvReac Type Severity Reaction Status Date / Time cephalexin Allergy Intermediate RASH Verified 01/17/17 11:54 Penicillins Allergy Intermediate RASH Verified 01/17/17 11:54 lactose Allergy Mild ABDOMINAL Verified 01/17/17 11:54 DISCOMFORT - Medications Medications: Current Medications Amlodipine Besylate (Norvasc) 10 mg PO DAILY [facility] Last Admin: 01/21/17 09:49 Dose: 10 mg Aspirin (Aspirin) 325 mg PO DAILY [facility] Last Admin: 01/21/17 09:50 Dose: 325 mg Enalapril Maleate (Vasotec) 5 mg PO DAILY [facility] Last Admin: 01/21/17 09:50 Dose: 5 mg Enoxaparin Sodium (Lovenox) 30 mg SC Q12 [facility] Last Admin: 01/21/17 21:33 Dose: 30 mg Ergocalciferol (Drisdol 50,000 Intl Units Cap) 50,000 cap PO QWK [facility] Famotidine (Pepcid) 40 mg PO DAILY [facility] Last Admin: 01/21/17 09:49 Dose: 40 mg Home Med (Insulin Lispro Mix 75/25 [Humalog Mix 75/25]) 45 unit SC AMHS [facility] Last Admin: 01/21/17 21:33 Dose: 45 unit Aztreonam 1 gm/ Sodium (Chloride) 100 mls @ 100 mls/hr IVPB Q8H [facility] Last Admin: 01/21/17 17:03 Dose: 100 mls/hr Vancomycin/Sodium Chloride (Vancocin) 200 mls @ 133.333 mls/hr IVPB Q24H [facility] Stop: 01/23/17 17:01 Last Admin: 01/21/17 18:12 Dose: 133.333 mls/hr Insulin Human Regular (Novolin R) 0 unit SC ACHS [facility] PRN Reason: Protocol Last Admin: 01/21/17 21:32 Dose: Not Given Labetalol HCl (Trandate) 100 mg PO BID [facility] Last Admin: 01/21/17 17:03 Dose: 100 mg Results - Vital Signs Recent Vital Signs: Last Vital Signs Temp 98 F 01/21/17 16:00 Pulse 65 01/21/17 16:00 Resp 20 01/21/17 16:00 BP 138/63 01/21/17 16:00 Pulse Ox 97 01/21/17 16:00 - Labs Result Diagrams: 01/21/17 14:18 01/21/17 14:18 Labs: Laboratory Results - last 24 hr 01/19/17 01/21/17 01/21/17 09:19 06:30 11:57 WBC RBC Hgb Hct MCV MCH MCHC RDW Plt Count MPV Neut % (Auto) Lymph % (Auto) [place] % (Auto) Eos % (Auto) Baso % (Auto) Neut # Lymph # [place] # Eos # Baso # Sodium Potassium Chloride Carbon Dioxide Anion Gap BUN Creatinine Est GFR ( Amer) Est GFR (Non-Af Amer) POC Glucose (mg/dL) 87 148 H Random Glucose Calcium Urine Legionella Ag Not detected 01/21/17 01/21/17 01/21/17 14:18 17:27 21:29 WBC 11.4 H RBC 4.80 Hgb 12.8 Hct 38.9 MCV 81.2 MCH 26.6 L MCHC 32.7 L RDW 14.3 Plt Count 247 MPV 9.9 Neut % (Auto) 79.4 H Lymph % (Auto) 11.9 L [place] % (Auto) 4.5 Eos % (Auto) 3.0 Baso % (Auto) 1.2 Neut # 9.1 H Lymph # 1.4 [place] # 0.5 Eos # 0.3 Baso # 0.1 Sodium 139 Potassium 3.9 Chloride 103 Carbon Dioxide 23 Anion Gap 16 BUN 21 H Creatinine 1.2 Est GFR ( Amer) 52 Est GFR (Non-Af Amer) 43 POC Glucose (mg/dL) 118 H 216 H Random Glucose 184 H Calcium 8.7 Urine Legionella Ag
--- NOTE | 2017-01-21 23:44 | CP.PCM.PN ---
Subjective - Date & Time of Evaluation Date of Evaluation: 01/21/17 Time of Evaluation: 23:44 - Subjective Subjective: CHIEF COMPLAINTS TODAY : FEELING BETTER Denies cough or Shortness of breath DENIES CHEST PAIN. S/P CARDIAC CATHETERIZATION AND FINDINGS NOTED. ROS. HEENT : N. Resp : No cough, wheezing ,pleuritic CP ,or hemoptysis Cardio : No anginal CP, PND, orthopnea, palpitation GI : POS abd.pain, NO n/v ,diarrhea or GI bleeding . MANAGER UROLOGY : No headache, vertigo, focal deficit. Musculoskel : No joint swelling , Derm : No rash Psych : Normal affect. Ext : No swelling ,calf pain PE. Pt. is alert awake in no distress. V.S As noted in the chart Head ,ear nose,throat and eyes : Normal. Neck : Supple with normal carotids. Lungs: Clear air entry. Heart : S1 & S2 normal with S4. No murmur. Abd : Soft non tender with normal bowel sounds. Neuro : Moves all ext. with no localized deficit. Ext : No edema with intact pulses.Non tender calves Derm : No rashes or decubitus ulcer. LABS/RADIOLOGY: PELVIC U/S NEG WBC IMPROVING.11.4 uRINALYSIS URINARY LEUKOCYTES 3+, WBC 33, 10 RBC, bacteria few Urine culture 10-50,000 colonies forming units/mL questionable contaminant. ASSESSMENT : chest pain /unstable angina HX CAD S/P STENT Probable UTI.. Doubt pneumonia / CHF. LEUKOCYTOSIS-IMPROVING DM PLAN; PATIENT AWAITING ANGIOPLASTY/.? STENT PLACEMENT CONTINUE ANTIBIOTICS PATIENT ON iv AZACTAM 1 G EVERY 8 HOURLY IV VANCOMYCIN 1 G EVERY 24 HOURLY. REPEAT CLEAN-CATCH U/A AND URINE CULTURE IN A.M. Objective - Vital Signs/Intake and Output Vital Signs (last 24 hours): Temp Pulse Resp BP Pulse Ox 98 F 65 20 138/63 97 01/21/17 16:00 01/21/17 16:00 01/21/17 16:00 01/21/17 16:00 01/21/17 16:00 - Medications Medications: Current Medications Amlodipine Besylate (Norvasc) 10 mg PO DAILY [facility] Last Admin: 01/21/17 09:49 Dose: 10 mg Aspirin (Aspirin) 325 mg PO DAILY [facility] Last Admin: 01/21/17 09:50 Dose: 325 mg Enalapril Maleate (Vasotec) 5 mg PO DAILY [facility] Last Admin: 01/21/17 09:50 Dose: 5 mg Enoxaparin Sodium (Lovenox) 30 mg SC Q12 [facility] Last Admin: 01/21/17 21:33 Dose: 30 mg Ergocalciferol (Drisdol 50,000 Intl Units Cap) 50,000 cap PO QWK [facility] Famotidine (Pepcid) 40 mg PO DAILY [facility] Last Admin: 01/21/17 09:49 Dose: 40 mg Home Med (Insulin Lispro Mix 75/25 [Humalog Mix 75/25]) 45 unit SC AMHS [facility] Last Admin: 01/21/17 21:33 Dose: 45 unit Aztreonam 1 gm/ Sodium (Chloride) 100 mls @ 100 mls/hr IVPB Q8H [facility] Last Admin: 01/21/17 17:03 Dose: 100 mls/hr Vancomycin/Sodium Chloride (Vancocin) 200 mls @ 133.333 mls/hr IVPB Q24H [facility] Stop: 01/23/17 17:01 Last Admin: 01/21/17 18:12 Dose: 133.333 mls/hr Insulin Human Regular (Novolin R) 0 unit SC ACHS [facility] PRN Reason: Protocol Last Admin: 01/21/17 21:32 Dose: Not Given Labetalol HCl (Trandate) 100 mg PO BID [facility] Last Admin: 01/21/17 17:03 Dose: 100 mg - Labs Labs: 01/21/17 14:18 01/21/17 14:18 Assessment and Plan (1) Leukocytosis Status: Acute (2) CAD (coronary artery disease) Status: Acute (3) Chest pain Status: Acute (4) Diabetes 1.5, managed as type 2 Status: Acute (5) Lower abdominal pain Status: Acute (6) UTI (urinary tract infection) Status: Acute (7) Pneumonia Status: Acute
[2017-01-22] MEDS: Aztreonam 1 GM in Sodium Chloride 0.9% 100 ML IVPB SCH ×3 (02:09→18:59)
[2017-01-22] MEDS: (Novolin R) Insulin Human Regular 100 units/ml vial SC SCH ×4 (07:52→21:14)
[2017-01-22] MEDS: INSULIN LISPRO MIX SC SCH ×2 (09:30→21:13)
[2017-01-22 10:56] LABS: RBC URINE < 1 /hpf (0-3); URINE BILIRUBIN NEGATIVE (NEGATIVE); URINE BLOOD NEGATIVE (NEGATIVE); URINE COLOR Straw (YELLOW); URINE GLUCOSE (UA) NORMAL (Normal); URINE KETONE NEGATIVE (NEGATIVE); URINE LEUKOCYTE ESTERASE NEG Leu/uL (Negative); URINE PROTEIN NEGATIVE (NEGATIVE); URINE UROBILINOGEN NORMAL mg/dL (0.2-1.0); WBC URINE < 1 /hpf (0-5)
[2017-01-22] MEDS: Enoxaparin 30 mg Syringe SC SCH ×2 (11:33→22:07)
--- NOTE | 2017-01-22 14:21 | CP.PCM.PN ---
Subjective - Date & Time of Evaluation Date of Evaluation: 01/22/17 Time of Evaluation: 14:21 - Subjective Subjective: NO CP AT REST D/W IC , DR. DIAZ PT WILL GO TO [facility] FOR STENT IN LAD Objective - Vital Signs/Intake and Output Vital Signs (last 24 hours): Temp Pulse Resp BP Pulse Ox 98.4 F 88 20 136/72 96 01/22/17 08:12 01/22/17 08:27 01/22/17 08:12 01/22/17 11:36 01/22/17 08:12 - Medications Medications: Current Medications Amlodipine Besylate (Norvasc) 10 mg PO DAILY [facility] Last Admin: 01/22/17 11:33 Dose: 10 mg Aspirin (Aspirin) 325 mg PO DAILY [facility] Last Admin: 01/22/17 11:32 Dose: 325 mg Enalapril Maleate (Vasotec) 5 mg PO DAILY [facility] Last Admin: 01/22/17 11:36 Dose: 5 mg Enoxaparin Sodium (Lovenox) 30 mg SC Q12 [facility] Last Admin: 01/22/17 11:33 Dose: 30 mg Ergocalciferol (Drisdol 50,000 Intl Units Cap) 50,000 cap PO QWK [facility] Famotidine (Pepcid) 40 mg PO DAILY [facility] Last Admin: 01/22/17 11:35 Dose: 40 mg Home Med (Insulin Lispro Mix 75/25 [Humalog Mix 75/25]) 45 unit SC AMHS [facility] Last Admin: 01/22/17 09:30 Dose: 45 unit Aztreonam 1 gm/ Sodium (Chloride) 100 mls @ 100 mls/hr IVPB Q8H [facility] Last Admin: 01/22/17 11:34 Dose: 100 mls/hr Vancomycin/Sodium Chloride (Vancocin) 200 mls @ 133.333 mls/hr IVPB Q24H [facility] Stop: 01/23/17 17:01 Last Admin: 01/21/17 18:12 Dose: 133.333 mls/hr Insulin Human Regular (Novolin R) 0 unit SC ACHS [facility] PRN Reason: Protocol Last Admin: 01/22/17 13:05 Dose: 4 unit Labetalol HCl (Trandate) 100 mg PO BID [facility] Last Admin: 01/22/17 11:32 Dose: 100 mg - Labs Labs: 01/21/17 14:18 01/21/17 14:18
[2017-01-22] MEDS: Vancomycin 1 gm/NS 200 ml 200 ML IVPB SCH (16:57)
--- NOTE | 2017-01-22 18:12 | RAD ---
PROCEDURE: CHEST RADIOGRAPH, 1 VIEW HISTORY: CHF /PNEUMONIA COMPARISON: Comparison is made to 01/17/2017 FINDINGS: LUNGS: There oval mild improvement in the lower lobes since the previous exam. PLEURA: No pneumothorax or pleural fluid seen. CARDIOVASCULAR: Mild cardiomegaly. OSSEOUS STRUCTURES: No significant abnormalities. VISUALIZED UPPER ABDOMEN: Normal. OTHER FINDINGS: None. IMPRESSION: Interval mild improvement in the lungs since the previous exam.
--- NOTE | 2017-01-22 19:56 | CP.PCM.PN ---
Subjective - Date & Time of Evaluation Date of Evaluation: 01/22/17 Time of Evaluation: 08:00 - Subjective Subjective: Patient will go to [facility] tomorrow for LAD stenting (Coronary intervention) Procedure scheduled at 2.30pm Patient should be in [facility] by 2pm Transfer in [facility] ambulance. Patient will come back 2 hours after the procedure NPO after breakfast tomorrow Objective - Vital Signs/Intake and Output Vital Signs (last 24 hours): Temp Pulse Resp BP Pulse Ox 97.9 F 71 20 133/78 97 01/22/17 16:35 01/22/17 16:35 01/22/17 16:35 01/22/17 16:35 01/22/17 16:35 - Medications Medications: Current Medications Amlodipine Besylate (Norvasc) 10 mg PO DAILY [facility] Last Admin: 01/22/17 11:33 Dose: 10 mg Aspirin (Aspirin) 325 mg PO DAILY [facility] Last Admin: 01/22/17 11:32 Dose: 325 mg Enalapril Maleate (Vasotec) 5 mg PO DAILY [facility] Last Admin: 01/22/17 11:36 Dose: 5 mg Enoxaparin Sodium (Lovenox) 30 mg SC Q12 [facility] Last Admin: 01/22/17 11:33 Dose: 30 mg Ergocalciferol (Drisdol 50,000 Intl Units Cap) 50,000 cap PO QWK [facility] Famotidine (Pepcid) 40 mg PO DAILY [facility] Last Admin: 01/22/17 11:35 Dose: 40 mg Home Med (Insulin Lispro Mix 75/25 [Humalog Mix 75/25]) 45 unit SC AMHS [facility] Last Admin: 01/22/17 09:30 Dose: 45 unit Aztreonam 1 gm/ Sodium (Chloride) 100 mls @ 100 mls/hr IVPB Q8H [facility] Last Admin: 01/22/17 18:59 Dose: 100 mls/hr Vancomycin/Sodium Chloride (Vancocin) 200 mls @ 133.333 mls/hr IVPB Q24H [facility] Stop: 01/23/17 17:01 Last Admin: 01/22/17 16:57 Dose: 133.333 mls/hr Insulin Human Regular (Novolin R) 0 unit SC ACHS [facility] PRN Reason: Protocol Last Admin: 01/22/17 17:19 Dose: Not Given Labetalol HCl (Trandate) 100 mg PO BID [facility] Last Admin: 01/22/17 18:59 Dose: 100 mg - Labs Labs: 01/21/17 14:18 01/21/17 14:18
--- NOTE | 2017-01-22 20:16 | CP.PCM.PN ---
Subjective - Date & Time of Evaluation Date of Evaluation: 01/22/17 Time of Evaluation: 20:16 - Subjective Subjective: AFEBRILE ,VSS NO CP NO ABDOMINAL PAIN, SEEN BY CARDIOLOGY, PT FOR ANGIOPLASTY IN AM IN [place]. CXR 01/22 REVIEWED ; INTERVAL IMPROVEMENT LOWER LOBES. REPEAT URINE CULTURE -OBTAINED TODAY F/U RESULT AND WILL ADVISE. ROS. HEENT : N. Resp : No cough, wheezing ,pleuritic CP ,or hemoptysis Cardio : No anginal CP, PND, orthopnea, palpitation GI : NO abd.pain, NO n/v ,diarrhea or GI bleeding . 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 Musculoskel : No joint swelling , Derm : No rash Psych : Normal affect. Ext : No swelling ,calf pain PE. Pt. is alert awake in no distress. V.S As noted in the chart Head ,ear nose,throat and eyes : Normal. Neck : Supple with normal carotids. Lungs: Clear air entry. Heart : S1 & S2 normal with S4. No murmur. Abd : Soft non tender with normal bowel sounds. Neuro : Moves all ext. with no localized deficit. Ext : No edema with intact pulses.Non tender calves Derm : No rashes or decubitus ulcer. LABS/RADIOLOGY: CXR 01/22/17 OVERALL IMPROVEMENT LOWER LUNG BASES. PELVIC U/S NEG WBC IMPROVING.11.4 uRINALYSIS URINARY LEUKOCYTES 3+, WBC 33, 10 RBC, bacteria few Urine culture 10-50,000 colonies forming units/mL questionable contaminant. ASSESSMENT : chest pain /unstable angina HX CAD S/P STENT Probable UTI.. PNEUMONIA / CHF LEUKOCYTOSIS-IMPROVING DM PLAN; PATIENT FOR ANGIOPLASTY IN A.M. IN [place]. CONTINUE ANTIBIOTICS PATIENT ON iv AZACTAM 1 G EVERY 8 HOURLY IV VANCOMYCIN 1 G EVERY 24 HOURLY. REPEAT CLEAN-CATCH U/A AND URINE CULTURE IN A.M. Objective - Vital Signs/Intake and Output Vital Signs (last 24 hours): Temp Pulse Resp BP Pulse Ox 97.9 F 71 20 133/78 97 01/22/17 16:35 01/22/17 16:35 01/22/17 16:35 01/22/17 16:35 01/22/17 16:35 - Medications Medications: Current Medications Amlodipine Besylate (Norvasc) 10 mg PO DAILY [facility] Last Admin: 01/22/17 11:33 Dose: 10 mg Aspirin (Aspirin) 325 mg PO DAILY [facility] Last Admin: 01/22/17 11:32 Dose: 325 mg Enalapril Maleate (Vasotec) 5 mg PO DAILY [facility] Last Admin: 01/22/17 11:36 Dose: 5 mg Enoxaparin Sodium (Lovenox) 30 mg SC Q12 [facility] Last Admin: 01/22/17 11:33 Dose: 30 mg Ergocalciferol (Drisdol 50,000 Intl Units Cap) 50,000 cap PO QWK [facility] Famotidine (Pepcid) 40 mg PO DAILY [facility] Last Admin: 01/22/17 11:35 Dose: 40 mg Home Med (Insulin Lispro Mix 75/25 [Humalog Mix 75/25]) 45 unit SC AMHS [facility] Last Admin: 01/22/17 09:30 Dose: 45 unit Aztreonam 1 gm/ Sodium (Chloride) 100 mls @ 100 mls/hr IVPB Q8H [facility] Last Admin: 01/22/17 18:59 Dose: 100 mls/hr Vancomycin/Sodium Chloride (Vancocin) 200 mls @ 133.333 mls/hr IVPB Q24H [facility] Stop: 01/23/17 17:01 Last Admin: 01/22/17 16:57 Dose: 133.333 mls/hr Insulin Human Regular (Novolin R) 0 unit SC ACHS [facility] PRN Reason: Protocol Last Admin: 01/22/17 17:19 Dose: Not Given Labetalol HCl (Trandate) 100 mg PO BID [facility] Last Admin: 01/22/17 18:59 Dose: 100 mg - Labs Labs: 01/21/17 14:18 01/21/17 14:18 Assessment and Plan (1) Leukocytosis Status: Acute (2) CAD (coronary artery disease) Status: Acute (3) Chest pain Status: Acute (4) Diabetes 1.5, managed as type 2 Status: Acute (5) Lower abdominal pain Status: Acute (6) UTI (urinary tract infection) Status: Acute (7) Pneumonia Status: Acute
[2017-01-23] MEDS: Aztreonam 1 GM in Sodium Chloride 0.9% 100 ML IVPB SCH ×4 (01:32→23:00)
[2017-01-23 07:03] LABS: INR 1.2
[2017-01-23 07:19] LABS: HEMATOCRIT 39.1 % (34.0-47.0); MEAN CELL VOLUME 80.8 fL (81.0-99.0); MEAN CORPUSCULAR HEMOGLOBIN 26.9 pg (27.0-31.0); MEAN CORPUSCULAR HGB CONC 33.3 g/dL (33.0-37.0); RED CELL DISTRIBUTION WIDTH 14.7 % (11.5-14.5); WHITE BLOOD COUNT 11.8 K/uL (4.8-10.8)
[2017-01-23 08:00] LABS: CHLORIDE 101 mmol/L (98-107); POTASSIUM 3.8 mmol/L (3.6-5.2); SODIUM 139 mmol/L (132-148)
[2017-01-23 08:02] LABS: GFR AFRICAN-AMERICAN > 60
[2017-01-23 08:03] LABS: BLOOD UREA NITROGEN 18 mg/dL (7-17); CARBON DIOXIDE 23 mmol/L (22-30); GLUCOSE,RANDOM 165 mg/dL (65-105)
[2017-01-23 08:04] LABS: CALCIUM 8.8 mg/dl (8.6-10.4)
[2017-01-23] MEDS: (Novolin R) Insulin Human Regular 100 units/ml vial SC SCH ×4 (08:11→22:45)
--- NOTE | 2017-01-23 09:00 | CARDCATH ---
PROCEDURE DATE: 01/20/2017 The patient underwent a left heart catheterization for recurrent chest pain. The patient has a stent in the circumflex and LAD. The patient underwent a left heart catheterization. Right femoral artery was cleaned and draped. A #6 introducer sheath was used and manual pressure for post cath. Sixto was used for the left, Will iams for right and LV gram for pigtail. Left main is normal vessel. Gives around LAD which wraps around the apex. Proximal LAD stent appear s normal. The stent in the middle of the LAD, which pre-stent, there is a significant lesion of 80%. The stent to the circumflex artery appears normal. Circumflex artery is normal. There are no lesi ons in the trunk or in the branches. RCA is a dominant vessel with no lesions found. LV gram appear s normal with EF of 50% with possible distal anterolateral hypokinesis. FINAL CONCLUSION: Pre-stent stenosis in the LAD. Normal functioning stent in the circumflex. Nikky l LV function. PLAN: The patient will need interventional procedure to reopen the LAD artery. Will discuss with toni hernandez medical claims manager. Misty Castillo MD cc: [id number] TT: 01/20/2017 18:54:00 sn
[2017-01-23] MEDS: INSULIN LISPRO MIX SC SCH ×2 (09:16→22:45)
[2017-01-23] MEDS: Enoxaparin 30 mg Syringe SC SCH (09:17)
--- NOTE | 2017-01-23 14:26 | CP.PCM.PN ---
Subjective - Date & Time of Evaluation Date of Evaluation: 01/23/17 Time of Evaluation: 14:26 - Subjective Subjective: t Objective - Vital Signs/Intake and Output Vital Signs (last 24 hours): Temp Pulse Resp BP Pulse Ox 98.3 F 80 20 136/84 96 01/23/17 08:50 01/23/17 08:50 01/23/17 08:50 01/23/17 09:16 01/23/17 08:50 Intake and Output: 01/23/17 01/23/17 11:59 23:59 Intake Total 300 Balance 300 - Medications Medications: Current Medications Amlodipine Besylate (Norvasc) 10 mg PO DAILY [facility] Last Admin: 01/23/17 09:16 Dose: 10 mg Aspirin (Aspirin) 325 mg PO DAILY [facility] Last Admin: 01/23/17 09:16 Dose: 325 mg Enalapril Maleate (Vasotec) 5 mg PO DAILY [facility] Last Admin: 01/23/17 09:16 Dose: 5 mg Enoxaparin Sodium (Lovenox) 30 mg SC Q12 [facility] Last Admin: 01/23/17 09:17 Dose: Not Given Ergocalciferol (Drisdol 50,000 Intl Units Cap) 50,000 cap PO QWK [facility] Famotidine (Pepcid) 40 mg PO DAILY [facility] Last Admin: 01/23/17 09:16 Dose: 40 mg Home Med (Insulin Lispro Mix 75/25 [Humalog Mix 75/25]) 45 unit SC AMHS [facility] Last Admin: 01/23/17 09:16 Dose: 45 unit Aztreonam 1 gm/ Sodium (Chloride) 100 mls @ 100 mls/hr IVPB Q8H [facility] Last Admin: 01/23/17 09:19 Dose: 100 mls/hr Vancomycin/Sodium Chloride (Vancocin) 200 mls @ 133.333 mls/hr IVPB Q24H [facility] Stop: 01/23/17 17:01 Last Admin: 01/22/17 16:57 Dose: 133.333 mls/hr Insulin Human Regular (Novolin R) 0 unit SC ACHS [facility] PRN Reason: Protocol Last Admin: 01/23/17 12:31 Dose: Not Given Labetalol HCl (Trandate) 100 mg PO BID [facility] Last Admin: 01/23/17 09:16 Dose: 100 mg - Labs Labs: 01/23/17 06:46 01/23/17 06:46 PT 12.9 SECONDS (9.7-12.2) H 01/23/17 06:46 INR 1.2 01/23/17 06:46
--- NOTE | 2017-01-23 16:05 | CP.PCM.PN ---
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 Patient received 1amp of D50 and started on D5 1/2 NS at 70cc hr for overnight Check finger stick Q x 2hr for next 8 hours Resume diet ASA and Plavix for 1 year ASA 81, Statins, b blockers, NEDRA I for life Objective - Vital Signs/Intake and Output Vital Signs (last 24 hours): Temp Pulse Resp BP Pulse Ox 98.3 F 80 20 136/84 96 01/23/17 08:50 01/23/17 08:50 01/23/17 08:50 01/23/17 09:16 01/23/17 08:50 Intake and Output: 01/23/17 01/23/17 06:59 18:59 Intake Total 300 Balance 300 - Medications Medications: Current Medications Acetaminophen (Tylenol 325mg Tab) 650 mg PO Q6 PRN PRN Reason: Pain, Mild (1-3) Amlodipine Besylate (Norvasc) 10 mg PO DAILY [facility] Last Admin: 01/23/17 09:16 Dose: 10 mg Aspirin (Aspirin) 81 mg PO DAILY [facility] Aspirin (Ecotrin) 81 mg PO DAILY [facility] Clopidogrel Bisulfate (Plavix) 75 mg PO DAILY [facility] Enalapril Maleate (Vasotec) 5 mg PO DAILY [facility] Last Admin: 01/23/17 09:16 Dose: 5 mg Enoxaparin Sodium (Lovenox) 30 mg SC DAILY [facility] Ergocalciferol (Drisdol 50,000 Intl Units Cap) 50,000 cap PO QWK [facility] Famotidine (Pepcid) 40 mg PO DAILY [facility] Last Admin: 01/23/17 09:16 Dose: 40 mg Home Med (Insulin Lispro Mix 75/25 [Humalog Mix 75/25]) 45 unit SC AMHS [facility] Last Admin: 01/23/17 09:16 Dose: 45 unit Aztreonam 1 gm/ Sodium (Chloride) 100 mls @ 100 mls/hr IVPB Q8H [facility] Last Admin: 01/23/17 09:19 Dose: 100 mls/hr Vancomycin/Sodium Chloride (Vancocin) 200 mls @ 133.333 mls/hr IVPB Q24H [facility] Stop: 01/23/17 17:01 Last Admin: 01/22/17 16:57 Dose: 133.333 mls/hr Dextrose/Sodium Chloride (Dextrose 5%/0.45% Ns 1000 Ml) 1,000 mls @ 70 mls/hr IV .[id number] [facility] Stop: 01/24/17 07:00 Insulin Human Regular (Novolin R) 0 unit SC ACHS [facility] PRN Reason: Protocol Last Admin: 01/23/17 12:31 Dose: Not Given Labetalol HCl (Trandate) 100 mg PO BID [facility] Last Admin: 01/23/17 09:16 Dose: 100 mg - Labs Labs: 01/23/17 06:46 01/23/17 06:46 PT 12.9 SECONDS (9.7-12.2) H 01/23/17 06:46 INR 1.2 01/23/17 06:46
[2017-01-23] MEDS: Dextrose 5%/0.45% NS 1,000 ML IV SCH ×2 (21:00→21:39)
[2017-01-23] MEDS: Vancomycin 1 gm/NS 200 ml 200 ML IVPB SCH (22:39)
--- NOTE | 2017-01-23 23:12 | CP.PCM.PN ---
Subjective - Date & Time of Evaluation Date of Evaluation: 01/23/17 Time of Evaluation: 23:12 - Subjective Subjective: AFEBRILE ,VSS no new complaints s/p ANGIOPLASTY today IN [place]. HEENT : N. Resp : No cough, wheezing ,pleuritic CP ,or hemoptysis Cardio : No anginal CP, PND, orthopnea, palpitation GI : NO abd.pain, NO n/v ,diarrhea or GI bleeding . 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 Musculoskel : No joint swelling , Derm : No rash Psych : Normal affect. Ext : No swelling ,calf pain PE. Pt. is alert awake in no distress. V.S As noted in the chart Head ,ear nose,throat and eyes : Normal. Neck : Supple with normal carotids. Lungs: Clear air entry. Heart : S1 & S2 normal with S4. No murmur. Abd : Soft non tender with normal bowel sounds. Neuro : Moves all ext. with no localized deficit. Ext : No edema with intact pulses.Non tender calves Derm : No rashes or decubitus ulcer. LABS/RADIOLOGY: CXR 01/22/17 OVERALL IMPROVEMENT LOWER LUNG BASES. PELVIC U/S NEG repeat urine culture negative 01/22/17 ASSESSMENT : chest pain /unstable angina s/p ANGIOPLASTY& GLORIA PLACEMENT 01/23/17 HX CAD S/P STENT Probable UTI.. PNEUMONIA / CHF LEUKOCYTOSIS-IMPROVING DM PLAN; DECREASE iv AZACTAM 1 G EVERY 12 HOURLY 01/18 dc IV VANCOMYCIN 1 G EVERY 24 HOURLY. DC ALL ANTIBIOTICS IN AM.. Objective - Vital Signs/Intake and Output Vital Signs (last 24 hours): Temp Pulse Resp BP Pulse Ox 98.3 F 80 20 136/84 96 01/23/17 08:50 01/23/17 20:30 01/23/17 08:50 01/23/17 09:16 01/23/17 08:50 - Medications Medications: Current Medications Acetaminophen (Tylenol 325mg Tab) 650 mg PO Q6 PRN PRN Reason: Pain, Mild (1-3) Amlodipine Besylate (Norvasc) 10 mg PO DAILY [facility] Last Admin: 01/23/17 09:16 Dose: 10 mg Aspirin (Ecotrin) 81 mg PO DAILY [facility] Clopidogrel Bisulfate (Plavix) 75 mg PO DAILY [facility] Enalapril Maleate (Vasotec) 5 mg PO DAILY [facility] Last Admin: 01/23/17 09:16 Dose: 5 mg Enoxaparin Sodium (Lovenox) 30 mg SC DAILY [facility] Ergocalciferol (Drisdol 50,000 Intl Units Cap) 50,000 cap PO QWK [facility] Famotidine (Pepcid) 40 mg PO DAILY [facility] Last Admin: 01/23/17 09:16 Dose: 40 mg Home Med (Insulin Lispro Mix 75/25 [Humalog Mix 75/25]) 45 unit SC AMHS [facility] Last Admin: 01/23/17 22:45 Dose: Not Given Dextrose/Sodium Chloride (Dextrose 5%/0.45% Ns 1000 Ml) 1,000 mls @ 70 mls/hr IV .[id number] [facility] Stop: 01/24/17 07:00 Last Admin: 01/23/17 21:39 Dose: Not Given Aztreonam 1 gm/ Sodium (Chloride) 100 mls @ 100 mls/hr IVPB Q12 [facility] Last Admin: 01/23/17 23:00 Dose: Not Given Insulin Human Regular (Novolin R) 0 unit SC ACHS [facility] PRN Reason: Protocol Last Admin: 01/23/17 22:45 Dose: Not Given Labetalol HCl (Trandate) 100 mg PO BID [facility] Last Admin: 01/23/17 18:00 Dose: 100 mg - Labs Labs: 01/23/17 06:46 01/23/17 06:46 PT 12.9 SECONDS (9.7-12.2) H 01/23/17 06:46 INR 1.2 01/23/17 06:46 Assessment and Plan (1) Leukocytosis Status: Acute (2) CAD (coronary artery disease) Status: Acute (3) Chest pain Status: Acute (4) Diabetes 1.5, managed as type 2 Status: Acute (5) Lower abdominal pain Status: Acute (6) UTI (urinary tract infection) Status: Acute (7) Pneumonia Status: Acute
[2017-01-24] MEDS: (Novolin R) Insulin Human Regular 100 units/ml vial SC SCH ×2 (08:20→12:26)
[2017-01-24 09:04] VITALS: O2SAT 98
[2017-01-24] MEDS: INSULIN LISPRO MIX SC SCH (09:55)
[2017-01-24] MEDS ORDERED: Enoxaparin 30 mg Syringe SC SCH (10:00)
[2017-01-24] MEDS ORDERED: Ergocalciferol 50,000 Intl Units Cap PO SCH (10:00)
[2017-01-24] MEDS ORDERED: Ergocalciferol 50,000 Intl Units Cap ONE (10:00)
--- NOTE | 2017-01-24 10:59 | CP.PCM.DIS ---
Provider - Provider Date of Admission: 01/17/17 15:18 Attending physician: Misty Castillo MD Time Spent in preparation of Discharge (in minutes): 30 Hospital Course - Lab Results Lab Results: Micro Results 01/18/17 14:22 Blood-Venous Blood Culture - Final NO GROWTH AFTER 5 DAYS 01/18/17 14:22 Blood-Venous Gram Stain - Final TEST NOT PERFORMED 01/18/17 13:30 Blood-Venous Blood Culture - Final NO GROWTH AFTER 5 DAYS 01/18/17 13:30 Blood-Venous Gram Stain - Final TEST NOT PERFORMED 01/22/17 Unknown Urine,Clean Catch Urine Culture - Final No Growth (<1,000 CFU/ML) 01/18/17 20:51 Naris MRSA Culture (Admit) - Final MRSA NOT DETECTED 01/18/17 13:30 Urine Urine Culture - Final 10-50,000 CFU/ML. MULTIPLE SPECIES. PROBABLE CONTAMINATION. Most Recent Lab Values WBC 11.8 K/uL (4.8-10.8) H 01/23/17 06:46 RBC 4.84 Mil/uL (3.80-5.20) 01/23/17 06:46 Hgb 13.0 g/dL (11.0-16.0) 01/23/17 06:46 Hct 39.1 % (34.0-47.0) 01/23/17 06:46 MCV 80.8 fL (81.0-99.0) L 01/23/17 06:46 MCH 26.9 pg (27.0-31.0) L 01/23/17 06:46 MCHC 33.3 g/dL (33.0-37.0) 01/23/17 06:46 RDW 14.7 % (11.5-14.5) H 01/23/17 06:46 Plt Count 267 K/uL (130-400) 01/23/17 06:46 MPV 10.0 fL (7.2-11.7) 01/23/17 06:46 Neut % (Auto) 79.4 % (50.0-75.0) H 01/21/17 14:18 Lymph % (Auto) 11.9 % (20.0-40.0) L 01/21/17 14:18 Mcmullen % (Auto) 4.5 % (0.0-10.0) 01/21/17 14:18 Eos % (Auto) 3.0 % (0.0-4.0) 01/21/17 14:18 Baso % (Auto) 1.2 % (0.0-2.0) 01/21/17 14:18 Neut # 9.1 K/uL (1.8-7.0) H 01/21/17 14:18 Lymph # 1.4 K/uL (1.0-4.3) 01/21/17 14:18 Mcmullen # 0.5 K/uL (0.0-0.8) 01/21/17 14:18 Eos # 0.3 K/uL (0.0-0.7) 01/21/17 14:18 Baso # 0.1 K/uL (0.0-0.2) 01/21/17 14:18 ESR 14 mm/hr (0-20) 01/19/17 06:55 PT 12.9 SECONDS (9.7-12.2) H 01/23/17 06:46 INR 1.2 01/23/17 06:46 Sodium 139 mmol/L (132-148) 01/23/17 06:46 Potassium 3.8 mmol/L (3.6-5.2) 01/23/17 06:46 Chloride 101 mmol/L (98-107) 01/23/17 06:46 Carbon Dioxide 23 mmol/L (22-30) 01/23/17 06:46 Anion Gap 20 (10-20) 01/23/17 06:46 BUN 18 mg/dL (7-17) H 01/23/17 06:46 Creatinine 0.9 MG/DL (0.7-1.2) 01/23/17 06:46 Est GFR ( Amer) > 60 01/23/17 06:46 Est GFR (Non-Af Amer) 59 01/23/17 06:46 POC Glucose (mg/dL) 201 mg/dL (65-110) H 01/24/17 06:48 Random Glucose 165 mg/dL (65-105) H 01/23/17 06:46 Calcium 8.8 mg/dl (8.6-10.4) 01/23/17 06:46 Total Bilirubin 1.1 mg/dL (0.2-1.3) 01/17/17 12:50 AST 32 U/L (14-36) 01/17/17 12:50 ALT 20 U/L (9-52) 01/17/17 12:50 Alkaline Phosphatase 79 U/L (38-126) 01/17/17 12:50 Total Creatine Kinase 59 U/L (30-135) 01/18/17 14:06 CK-MB (Mass) 0.40 ng/mL (0.0-3.38) 01/18/17 14:06 Troponin I 0.0120 ng/mL (0.00-0.120) 01/17/17 12:50 Troponin I, Quant < 0.0120 ng/mL (0.00-0.120) 01/18/17 14:06 C-React Prot High Sens > 15.00 mg/L (1.00-3.00) H 01/19/17 06:54 NT-Pro-B Natriuret Pep 223 pg/mL (0-900) 01/19/17 06:54 Total Protein 8.0 g/dL (6.3-8.3) 01/17/17 12:50 Albumin 4.4 g/dL (3.5-5.0) 01/17/17 12:50 Globulin 3.6 gm/dL (2.2-3.9) 01/17/17 12:50 Albumin/Globulin Ratio 1.2 (1.0-2.1) 01/17/17 12:50 Urine Color Straw (YELLOW) 01/22/17 10:43 Urine Clarity Clear (Clear) 01/22/17 10:43 Urine pH 6.0 (5.0-8.0) 01/22/17 10:43 Ur Specific [place] 1.009 (1.003-1.030) 01/22/17 10:43 Urine Protein Negative mg/dL (NEGATIVE) 01/22/17 10:43 Urine Glucose (UA) Normal mg/dL (Normal) 01/22/17 10:43 Urine Ketones Negative mg/dL (NEGATIVE) 01/22/17 10:43 Urine Blood Negative (NEGATIVE) 01/22/17 10:43 Urine Nitrate Negative (NEGATIVE) 01/22/17 10:43 Urine Bilirubin Negative (NEGATIVE) 01/22/17 10:43 Urine Urobilinogen Normal mg/dL (0.2-1.0) 01/22/17 10:43 Ur Leukocyte Esterase Neg Unique/uL (Negative) 01/22/17 10:43 Urine WBC (Auto) < 1 /hpf (0-5) 01/22/17 10:43 Urine RBC (Auto) < 1 /hpf (0-3) 01/22/17 10:43 Ur Squamous Epith Cells < 1 /hpf (0-5) 01/22/17 10:43 Urine Bacteria Few (<OCC) H 01/18/17 17:07 Urine Legionella Ag Not detected (Not Detected) 01/19/17 09:19 Mycoplasma pneumon IgM Negative (NEGATIVE) 01/19/17 06:54 - Hospital Course Hospital Course: 86 years old female with history of coronary artery disease with 2 stents complaining of retrosternal chest discomfort radiating to her left arm associated with diaphoresis and sweaty feeling. Pain is sometimes at rest and more on exertion. Patient had a stent inserted last year in circumflex and RCA artery. PT HAD HIGH WHITE COUNT . WITH IV AB IT IMPROVED . SEPTIC W/U WAS NONCONCLUSIVE PT HAD CATH. SHOWED SIGNIFICANT MID LAD LESION HAD SUCCESSFUL STENT PLACED AND STABLE FOR DISCHARGE Discharge Exam - Head Exam Head Exam: NORMAL INSPECTION Discharge Plan - Follow Up Plan Condition: FAIR Disposition: HOME/ ROUTINE
[2017-01-24] MEDS: Aztreonam 1 GM in Sodium Chloride 0.9% 100 ML IVPB SCH (11:04)
--- NOTE | 2017-01-24 11:57 | CP.PCM.PN ---
Subjective - Date & Time of Evaluation Date of Evaluation: 01/24/17 Time of Evaluation: 11:57 - Subjective Subjective: Subjective: AFEBRILE ,VSS no new complaints denies CHEST PAIN /OR SOB. s/p ANGIOPLASTY 01/23/17 HEENT : N. Resp : No cough, wheezing ,pleuritic CP ,or hemoptysis Cardio : No anginal CP, PND, orthopnea, palpitation GI : NO abd.pain, NO n/v ,diarrhea or GI bleeding . 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 Musculoskel : No joint swelling , Derm : No rash Psych : Normal affect. Ext : No swelling ,calf pain PE. Pt. is alert awake in no distress. V.S As noted in the chart Head ,ear nose,throat and eyes : Normal. Neck : Supple with normal carotids. Lungs: Clear air entry. Heart : S1 & S2 normal with S4. No murmur. Abd : Soft non tender with normal bowel sounds. Neuro : Moves all ext. with no localized deficit. Ext : No edema with intact pulses.Non tender calves Derm : No rashes or decubitus ulcer. LABS/RADIOLOGY: CXR 01/22/17 OVERALL IMPROVEMENT LOWER LUNG BASES. PELVIC U/S NEG repeat urine culture negative 01/22/17 ASSESSMENT : chest pain /unstable angina s/p ANGIOPLASTY& GLORIA PLACEMENT 01/23/17 HX CAD S/P STENT Probable UTI.. PNEUMONIA / CHF LEUKOCYTOSIS-IMPROVED DM PLAN; D/C IV AZACTAM 01/18 F/U W PMD . CASE DISCUSSED W CHITRA PLUMMER.. Objective - Vital Signs/Intake and Output Vital Signs (last 24 hours): Temp Pulse Resp BP Pulse Ox 98.4 F 69 20 133/77 98 01/24/17 07:30 01/24/17 07:45 01/24/17 07:30 01/24/17 09:54 01/24/17 07:30 Intake and Output: 01/24/17 01/24/17 06:59 18:59 Intake Total 680 Balance 680 - Medications Medications: Current Medications Acetaminophen (Tylenol 325mg Tab) 650 mg PO Q6 PRN PRN Reason: Pain, Mild (1-3) Amlodipine Besylate (Norvasc) 10 mg PO DAILY [facility] Last Admin: 01/24/17 09:55 Dose: 10 mg Aspirin (Ecotrin) 81 mg PO DAILY [facility] Last Admin: 01/24/17 09:55 Dose: 81 mg Clopidogrel Bisulfate (Plavix) 75 mg PO DAILY [facility] Last Admin: 01/24/17 09:55 Dose: 75 mg Enalapril Maleate (Vasotec) 5 mg PO DAILY [facility] Last Admin: 01/24/17 09:54 Dose: 5 mg Enoxaparin Sodium (Lovenox) 30 mg SC DAILY [facility] Last Admin: 01/24/17 09:54 Dose: 30 mg Ergocalciferol (Drisdol 50,000 Intl Units Cap) 50,000 cap PO QWK [facility] Last Admin: 01/24/17 09:54 Dose: 50,000 cap Famotidine (Pepcid) 40 mg PO DAILY [facility] Last Admin: 01/24/17 09:55 Dose: 40 mg Home Med (Insulin Lispro Mix 75/25 [Humalog Mix 75/25]) 45 unit SC AMHS [facility] Last Admin: 01/24/17 09:55 Dose: 45 unit Aztreonam 1 gm/ Sodium (Chloride) 100 mls @ 100 mls/hr IVPB Q12 [facility] Last Admin: 01/24/17 11:04 Dose: Not Given Insulin Human Regular (Novolin R) 0 unit SC ACHS [facility] PRN Reason: Protocol Last Admin: 01/24/17 08:20 Dose: 3 unit Labetalol HCl (Trandate) 100 mg PO BID [facility] Last Admin: 01/24/17 09:54 Dose: 100 mg - Labs Labs: 01/23/17 06:46 01/23/17 06:46 PT 12.9 SECONDS (9.7-12.2) H 01/23/17 06:46 INR 1.2 01/23/17 06:46 Assessment and Plan (1) Leukocytosis Status: Acute (2) CAD (coronary artery disease) Status: Acute (3) Chest pain Status: Acute (4) Diabetes 1.5, managed as type 2 Status: Acute (5) Lower abdominal pain Status: Acute (6) UTI (urinary tract infection) Status: Acute (7) Pneumonia Status: Acute
--- NOTE | 2017-01-24 13:26 | CP.PCM.PN ---
Subjective - Date & Time of Evaluation Date of Evaluation: 01/24/17 Time of Evaluation: 13:24 - Subjective Subjective: 86 Y/O FEMALE D/C HOME PER DR MOHAN, PMHX CAD, CP, S/P STENT X1 PLACED YESTERDAY, PT CLEARED FOR D/C PER DR MOHAN AND DR. CANTRELL, NO ABX PER DR CANTRELL, PLAVIX 75 MG PO DAILY #30 AND CONTINUE HOME MEDS PER DR MOHAN, F/U WITH DR MOHAN IN 5-7 DAYS, RETURN TO ED IF ANY WORSENING S/S, AGREE, VERBALIZE UNDERSTANDING. Objective - Vital Signs/Intake and Output Vital Signs (last 24 hours): Temp Pulse Resp BP Pulse Ox 98.4 F 69 20 133/77 98 01/24/17 07:30 01/24/17 07:45 01/24/17 07:30 01/24/17 09:54 01/24/17 07:30 Intake and Output: 01/24/17 01/24/17 06:59 18:59 Intake Total 680 Balance 680 - Medications Medications: Current Medications Acetaminophen (Tylenol 325mg Tab) 650 mg PO Q6 PRN PRN Reason: Pain, Mild (1-3) Amlodipine Besylate (Norvasc) 10 mg PO DAILY [facility] Last Admin: 01/24/17 09:55 Dose: 10 mg Aspirin (Ecotrin) 81 mg PO DAILY [facility] Last Admin: 01/24/17 09:55 Dose: 81 mg Clopidogrel Bisulfate (Plavix) 75 mg PO DAILY [facility] Last Admin: 01/24/17 09:55 Dose: 75 mg Enalapril Maleate (Vasotec) 5 mg PO DAILY [facility] Last Admin: 01/24/17 09:54 Dose: 5 mg Enoxaparin Sodium (Lovenox) 30 mg SC DAILY [facility] Last Admin: 01/24/17 09:54 Dose: 30 mg Ergocalciferol (Drisdol 50,000 Intl Units Cap) 50,000 cap PO QWK [facility] Last Admin: 01/24/17 09:54 Dose: 50,000 cap Famotidine (Pepcid) 40 mg PO DAILY [facility] Last Admin: 01/24/17 09:55 Dose: 40 mg Home Med (Insulin Lispro Mix 75/25 [Humalog Mix 75/25]) 45 unit SC AMHS [facility] Last Admin: 01/24/17 09:55 Dose: 45 unit Aztreonam 1 gm/ Sodium (Chloride) 100 mls @ 100 mls/hr IVPB Q12 [facility] Last Admin: 01/24/17 11:04 Dose: Not Given Insulin Human Regular (Novolin R) 0 unit SC ACHS MAGED PRN Reason: Protocol Last Admin: 01/24/17 12:26 Dose: 2 unit Labetalol HCl (Trandate) 100 mg PO BID [facility] Last Admin: 01/24/17 09:54 Dose: 100 mg - Labs Labs: 01/23/17 06:46 01/23/17 06:46 PT 12.9 SECONDS (9.7-12.2) H 01/23/17 06:46 INR 1.2 01/23/17 06:46
[2017-01-24 15:31] VITALS: BP 136/81; PULSE 70; TEMP 98
== END 2017-01-24 19:30 | disposition home or self-care (01) | DRG 246 ==
LOC: C.ER 11:44 → C.9E 15:18 → C.6T 18:34
PROVIDERS: ADMIT Internal Medicine Cardiovascular Disease; ATTEND Internal Medicine Cardiovascular Disease
PROC: 027035Z Dilation of Coronary Artery, One Artery with Two Drug-eluting Intraluminal Devices, Percutaneous Approach (ICD-10-PCS; 2017-01-20)
PROC: B2151ZZ Fluoroscopy of Left Heart using Low Osmolar Contrast (ICD-10-PCS; 2017-01-20)
PROC: 4A023N7 Measurement of Cardiac Sampling and Pressure, Left Heart, Percutaneous Approach (ICD-10-PCS; principal; 2017-01-20 15:00)
PROC: 027034Z Dilation of Coronary Artery, One Artery with Drug-eluting Intraluminal Device, Percutaneous Approach (ICD-10-PCS; 2017-01-23)
DX: I25.110 Atherosclerotic heart disease of native coronary artery with unstable angina pectoris (principal); J18.9 Pneumonia, unspecified organism; I11.0 Hypertensive heart disease with heart failure; I50.9 Heart failure, unspecified; E11.9 Type 2 diabetes mellitus without complications; Z79.4 Long term (current) use of insulin; Z87.891 Personal history of nicotine dependence; E78.5 Hyperlipidemia, unspecified

== ENCOUNTER 2017-09-23 16:20 | Inpatient (IN) | payer MEDICARE, MEDICAID ==
[2017-09-23 16:20] VITALS: BMI 29.4
[2017-09-23] MEDS ORDERED: Aspirin 325 mg EC Tablets PO STA (16:43)
[2017-09-23 16:59] LABS: BASO # 0.1 K/uL (0.0-0.2); BASO % 0.8 % (0.0-2.0); EOS # 0.3 K/uL (0.0-0.7); EOS % 1.9 % (0.0-4.0); HEMATOCRIT 44.4 % (34.0-47.0); LYMPH # 2.7 K/uL (1.0-4.3); LYMPH % 16.8 % (20.0-40.0); MEAN CELL VOLUME 80.3 fL (81.0-99.0); MEAN CORPUSCULAR HEMOGLOBIN 27.1 pg (27.0-31.0); MEAN CORPUSCULAR HGB CONC 33.8 g/dL (33.0-37.0); MEAN PLATELET VOLUME 10.3 fL (7.2-11.7); MONO # 0.8 K/uL (0.0-0.8); MONO % 5.2 % (0.0-10.0); NRBC % 0.1 % (0.0-2.0); RED CELL DISTRIBUTION WIDTH 14.9 % (11.5-14.5); WHITE BLOOD COUNT 15.7 K/uL (4.8-10.8)
[2017-09-23 17:08] LABS: INR 1.1
[2017-09-23 17:12] LABS: ALB/GLOB RATIO 0.9 (1.0-2.1); ALKALINE PHOSPHATASE 101 U/L (38-126); ALT/SGPT 37 U/L (9-52); AST/SGOT 20 U/L (14-36); BILIRUBIN,TOTAL 0.8 mg/dL (0.2-1.3); BLOOD UREA NITROGEN 23 mg/dL (7-17); CALCIUM 8.6 mg/dl (8.6-10.4); CARBON DIOXIDE 29 mmol/L (22-30); CHLORIDE 101 mmol/L (98-107); GFR AFRICAN-AMERICAN 57; GLUCOSE,RANDOM 235 mg/dL (65-105); POTASSIUM 4.2 mmol/L (3.6-5.2); SODIUM 138 mmol/L (132-148); TOTAL PROTEIN 8.4 g/dL (6.3-8.3)
--- NOTE | 2017-09-23 18:29 | RAD ---
PROCEDURE: CHEST RADIOGRAPH, 1 VIEW HISTORY: chest pain COMPARISON: Portable chest 01/22/2017. FINDINGS: LUNGS: No acute infiltrate bilaterally. PLEURA: No pneumothorax or pleural fluid seen. CARDIOVASCULAR: Cardiomegaly appears stable. No pulmonary derangement identified. Aortic ectasis is again identified. OSSEOUS STRUCTURES: No significant abnormalities. VISUALIZED UPPER ABDOMEN: Normal. OTHER FINDINGS: None. IMPRESSION: No interval acute cardiopulmonary disease appreciated. Stable cardiomegaly.
--- NOTE | 2017-09-23 18:59 | C.PDOC ---
History Of Present Illness 86 y/o female hx of cardiac stents in the past brought by ALS presents to the ED c/o intermittent chest pain, positive cough with phlegm. The patient denies fever, vomiting, diarrhea , and dizziness. Chief Complaint (Nursing): Chest Pain History Per: Other (brought by ALS) History/Exam Limitations: no limitations Onset/Duration Of Symptoms: Hrs Current Symptoms Are (Timing): Still Present Associated Symptoms: denies: Nausea Recent travel outside of the [place]: No Past Medical History Reviewed: Historical Data, Nursing Documentation, Vital Signs Vital Signs: Last Vital Signs Temp 98.6 F 09/23/17 21:15 Pulse 79 09/23/17 21:15 Resp 20 09/23/17 21:15 BP 166/76 H 09/23/17 21:15 Pulse Ox 96 09/23/17 21:15 - Medical History PMH: CAD, COPD, Gall Bladder Disease, HTN, Hypercholesterolemia Denies: Chronic Kidney Disease Surgical History: Cholecystectomy, Coronary Stent, - [facility] Procedures DILATION OF 1 COR ART WITH 2 DRUG-ELUT, PERC APPROACH (01/17/17) DILATION OF 1 COR ART WITH DRUG-ELUT INTRA, PERC APPROACH (01/17/17) EXCISION OF STOMACH, ENDO, DIAGN (11/19/15) FLUOROSCOPY OF LEFT HEART USING LOW OSMOLAR CONTRAST (01/17/17) MEASURE OF CARDIAC SAMPL & PRESSURE, L HEART, PERC APPROACH (01/17/17) OTHER ENDOSCOPY OF SM INTEST (01/02/14) RADIOGRAPHY OF GALLBLADDER & BILE DUCT USING L OSM CONTRAST (11/21/15) RESECTION OF GALLBLADDER, PERCUTANEOUS ENDOSCOPIC APPROACH (11/21/15) ULTRASONOGRAPHY OF GALLBLADDER AND BILE DUCTS (11/19/15) Family History: States: No Known Family Hx - Social History Hx Tobacco Use: No Hx Alcohol Use: No Hx Substance Use: No - Immunization History Hx Tetanus Toxoid Vaccination: Yes Hx Influenza Vaccination: Yes Hx Pneumococcal Vaccination: Yes Review Of Systems Except As Marked, All Systems Reviewed And Found Negative. Constitutional: Negative for: Fever, Chills Cardiovascular: Positive for: Chest Pain (intermittent ). Negative for: Palpitations Respiratory: Positive for: Cough (with phlegm). Negative for: Shortness of Breath Gastrointestinal: Negative for: Nausea, Vomiting, Abdominal Pain, Diarrhea, Constipation Skin: Negative for: Rash Neurological: Negative for: Dizziness Physical Exam - Physical Exam Appears: Non-toxic, No Acute Distress, Other (unremarkable ) Skin: Warm, Dry, No Rash Head: Atraumatic, Normacephalic Eye(s): bilateral: PERRL Oral Mucosa: Moist Neck: Supple Chest: Symmetrical Cardiovascular: Rhythm Regular Respiratory: Normal Breath Sounds, No Rales, No Rhonchi, No Wheezing Gastrointestinal/Abdominal: Soft, No Tenderness, No Guarding, No Rebound Extremity: Normal ROM, Capillary Refill (2<sec.) Neurological/Psych: Oriented x3, Normal Speech, Normal Cognition Gait: Steady ED Course And Treatment - Laboratory Results Result Diagrams: 09/23/17 16:55 09/23/17 16:55 ECG Rhythm: Sinus Rhythm (79 left axis deviation LVH) O2 Sat by Pulse Oximetry: 94 (RA) Progress Note: spoke with Dr. Castillo and patient is admitted to telemetry. - Physician Consult Information Time Consulting Physician Contacted: 16:25 Physician Contacted: Tonny Brown (secondary als notification for possible code heart review cause and Dr. Brown code heart not called ) Disposition - Disposition Disposition: HOSPITALIZED Disposition Time: 16:25 Condition: STABLE - Clinical Impression Clinical Impression: Chest pain - Scribe Statement The provider has reviewed the documentation as recorded by the Scribe Jackelyn Hood All medical record entries made by the Scribe were at my direction and personally dictated by me. I have reviewed the chart and agree that the record accurately reflects my personal performance of the history, physical exam, medical decision making, and the department course for this patient. I have also personally directed, reviewed, and agree with the discharge instructions and disposition.
[2017-09-23 19:32] LABS: RBC URINE 10 /hpf (0-3); URINE BACTERIA FEW (<OCC); URINE BILIRUBIN NEGATIVE (NEGATIVE); URINE BLOOD NEGATIVE (NEGATIVE); URINE COLOR Yellow (YELLOW); URINE GLUCOSE (UA) 1+ mg/dL (Normal); URINE KETONE NEGATIVE (NEGATIVE); URINE LEUKOCYTE ESTERASE 1+ Leu/uL (Negative); URINE PROTEIN 2+ mg/dL (NEGATIVE); WBC URINE 31 /hpf (0-5)
--- NOTE | 2017-09-23 20:46 | CP.PCM.HP ---
History of Present Illness - History of Present Illness History of Present Illness: 86 y/o female hx of cardiac stents in the past brought by ALS presents to the ED c/o intermittent chest pain, positive cough with phlegm. The patient denies fever, vomiting, diarrhea , and dizziness. PT. WAS ADMITTED IN IN02/06 WITH HIGH WBC AND IMPROVED ON IV AB HAD CATH , WITH LAD LESION SUCCESSFULLY STENTED PT PRIOR TO ADMISSION HAD INTERMITTENT CP AT REST AND EXERTION PT. HAS FREQUENT GERD SYMPTOMS Present on Admission - Present on Admission Any Indicators Present on Admission: No Review of Systems - Constitutional Constitutional: absent: As Per HPI, Anorexia, Chills, Daytime Sleepiness, Excessive Sweating, Fatigue, Fever, Frequent Falls, Headache, Increased Appetite , Lethargy, Malaise, Night Sweats, Snoring, Sleep Apnea, Weight Gain, Weight Loss, Weakness, Other - EENT Eyes: absent: As Per HPI, Blind Spots, Blurred Vision, Change in Vision, Decreased Night Vision, Diplopia, Discharge, Dry Eye, Exophthalmos, Floaters, Irritation, Itchy Eyes, Loss of Peripheral Vision, Pain, Photophobia, Requires Corrective Lenses, Sees Flashes, Spots in Vision, Tunnel Vision, Other Visual Disturbances, Loss of Vision, Other Ears: absent: As Per HPI, Decreased Hearing, Ear Discharge, Ear Pain, Tinnitus, Abnormal Hearing, Disequilibrium, Dizziness, Other - Breasts Breasts: absent: As Per HPI, Change in Shape, Mass, Pain, Nipple Discharge, Nipple Inversion, Skin Changes, Swelling, Other - Cardiovascular Cardiovascular: Chest Pain, Chest Pain at Rest, Chest Pain with Activity, Dyspnea, Dyspnea on Exertion, Orthopnea. absent: Claudication, Edema, Lightheadedness, Paroxysmal Nocturnal Dyspnea, Pedal Edema - Respiratory Respiratory: Dyspnea on Exertion, Wheezing, Excessive Mucous Production. absent : Hemoptysis - Gastrointestinal Gastrointestinal: Heartburn. absent: As Per HPI, Abdominal Pain, Belching, Bloating, Change in Bowel Habits, Change in Stool Character, Coffee Ground Emesis, Constipation, Cramping, Diarrhea, Dyspepsia, Dysphagia, Early Satiety, Excessive Flatus, Fecal Incontinence, Hematemesis, Hematochezia, Loose Stools, Melena, Nausea, Odynophagia, Temesmus, Vomiting, Other - Genitourinary Genitourinary: absent: As Per HPI, Change in Urinary Stream, Difficulty Urinating, Dysuria, Flank Pain, Hematuria, Pyuria, Nocturia, Urinary Incontinence, Urinary Frequency, Urinary Hesitance, Urinary Urgency, Voiding Freq/Small Amts, Freq UTI, Hx Renal/Bladder Calculi, Hx /Renal Surgery, Bladder Distension, Other - Musculoskeletal Musculoskeletal: absent: As Per HPI, Abnormal Gait, Arthralgias, Atrophy, Back Pain, Deformity, Joint Swelling, Limited Range of Motion, Loss of Height, Muscle Cramps, Muscle Weakness, Myalgias, Neck Pain, Numbness, Radiating Pain into Limb, Stiffness, Tingling, Other - Neurological Neurological: absent: As Per HPI, Abnormal Gait, Abnormal Hearing, Abnormal Movements, Abnormal Speech, Behavioral Changes, Burning Sensations, Confusion, Convulsions, Disequilibrium, Dizziness, Numbness, Focal Weakness, Frequent Falls , Headaches, Lack of Coordination, Loss of Vision, Memory Loss, Paresthesias, Radicular Pain, Restless Legs, Sensory Deficit, Syncope, Tingling, Tremor, Vertigo, Weakness, Other Visual Disturbances, Other - Endocrine Endocrine: absent: As Per HPI, Change in Body Appearance, Change in Libido, Cold Intolorance, Deepening of Voice, Excessive Sweating, Fatigue, Flushing, Heat Intolorance, Increase in Ring/Shoe/Hat Size, Palpitations, Polydipsia, Polyphagia, Polyuria, Other Past Patient History - Infectious Disease Hx of Infectious Diseases: None - Past Medical History & Family History Past Medical History?: Yes - Past Social History Smoking Status: Former Smoker - CARDIAC Hx Hypercholesterolemia: Yes Hx Hypertension: Yes - PULMONARY Hx Chronic Obstructive Pulmonary Disease (COPD): Yes - NEUROLOGICAL Hx Neurological Disorder: No - HEENT Hx HEENT Problems: Yes Hx Cataracts: Yes (BILAT.) - RENAL Hx Chronic Kidney Disease: No - ENDOCRINE/METABOLIC Hx Endocrine Disorders: Yes Hx Diabetes Mellitus Type 2: Yes - HEMATOLOGICAL/ONCOLOGICAL Hx Blood Disorders: No - INTEGUMENTARY Hx Dermatological Problems: No - MUSCULOSKELETAL/RHEUMATOLOGICAL Hx Falls: Yes - GASTROINTESTINAL Hx Gall Bladder Disease: Yes - GENITOURINARY/GYNECOLOGICAL Hx Genitourinary Disorders: No Other/Comment: TUBAL LIGATION,CEASEREAN X 2 - PSYCHIATRIC Hx Substance Use: No - SURGICAL HISTORY Hx Cholecystectomy: Yes Hx Coronary Stent: Yes - ANESTHESIA Hx Anesthesia: Yes Hx Anesthesia Reactions: No Hx Malignant Hyperthermia: No Meds Allergies/Adverse Reactions: Allergies Allergy/AdvReac Type Severity Reaction Status Date / Time cephalexin Allergy Intermediate RASH Verified 01/17/17 11:54 Penicillins Allergy Intermediate RASH Verified 01/17/17 11:54 lactose Allergy Mild ABDOMINAL Verified 01/17/17 11:54 DISCOMFORT Physical Exam - Head Exam Head Exam: NORMAL INSPECTION - Eye Exam Eye Exam: EOMI, Normal appearance, PERRL - ENT Exam ENT Exam: Mucous Membranes Moist, Normal Exam - Neck Exam Neck exam: Positive for: Normal Inspection - Respiratory Exam Respiratory Exam: Decreased Breath Sounds, Rhonchi, Wheezes - Cardiovascular Exam Cardiovascular Exam: +S1, +S2, Systolic Murmur - GI/Abdominal Exam GI & Abdominal Exam: Normal Bowel Sounds, Soft. absent: Tenderness - Back Exam Back exam: FULL ROM, NORMAL INSPECTION. absent: muscle spasm - Neurological Exam Neurological exam: Alert, CN II-XII Intact, Normal Gait, Oriented x3, Reflexes Normal Results - Vital Signs Recent Vital Signs: Last Vital Signs Temp 99.0 F 09/23/17 20:17 Pulse 73 09/23/17 20:17 Resp 18 09/23/17 20:17 BP 151/70 H 09/23/17 20:17 Pulse Ox 95 09/23/17 20:17 - Labs Result Diagrams: 09/23/17 16:55 09/23/17 16:55 Labs: Laboratory Results - last 24 hr 09/23/17 09/23/17 09/23/17 16:55 16:55 16:55 WBC 15.7 H RBC 5.53 H Hgb 15.0 Hct 44.4 MCV 80.3 L MCH 27.1 MCHC 33.8 RDW 14.9 H Plt Count 279 MPV 10.3 Neut % (Auto) 75.3 H Lymph % (Auto) 16.8 L Whitman % (Auto) 5.2 Eos % (Auto) 1.9 Baso % (Auto) 0.8 Neut # 11.9 H Lymph # 2.7 Whitman # 0.8 Eos # 0.3 Baso # 0.1 PT 12.8 H INR 1.1 APTT 27 Sodium 138 Potassium 4.2 Chloride 101 Carbon Dioxide 29 Anion Gap 13 BUN 23 H Creatinine 1.1 Est GFR ( Amer) 57 Est GFR (Non-Af Amer) 47 Random Glucose 235 H Calcium 8.6 Total Bilirubin 0.8 AST 20 ALT 37 Alkaline Phosphatase 101 Troponin I < 0.0120 NT-Pro-B Natriuret Pep 1240 H Total Protein 8.4 H Albumin 4.0 Globulin 4.4 H Albumin/Globulin Ratio 0.9 L Urine Color Urine Clarity Urine pH Ur Specific [place] Urine Protein Urine Glucose (UA) Urine Ketones Urine Blood Urine Nitrate Urine Bilirubin Urine Urobilinogen Ur Leukocyte Esterase Urine WBC (Auto) Urine RBC (Auto) Ur Squamous Epith Cells Urine Bacteria 09/23/17 19:25 WBC RBC Hgb Hct MCV MCH MCHC RDW Plt Count MPV Neut % (Auto) Lymph % (Auto) Whitman % (Auto) Eos % (Auto) Baso % (Auto) Neut # Lymph # Whitman # Eos # Baso # PT INR APTT Sodium Potassium Chloride Carbon Dioxide Anion Gap BUN Creatinine Est GFR ( Amer) Est GFR (Non-Af Amer) Random Glucose Calcium Total Bilirubin AST ALT Alkaline Phosphatase Troponin I NT-Pro-B Natriuret Pep Total Protein Albumin Globulin Albumin/Globulin Ratio Urine Color Yellow Urine Clarity Clear Urine pH 6.0 Ur Specific [place] 1.024 Urine Protein 2+ H Urine Glucose (UA) 1+ Urine Ketones Negative Urine Blood Negative Urine Nitrate Negative Urine Bilirubin Negative Urine Urobilinogen 2.0 H Ur Leukocyte Esterase 1+ H Urine WBC (Auto) 31 H Urine RBC (Auto) 10 H Ur Squamous Epith Cells 17 H Urine Bacteria Few H Assessment & Plan (1) CAD (coronary artery disease) Status: Chronic (2) Chest pain Status: Acute (3) Diabetes 1.5, managed as type 2 Status: Chronic (4) Leukocytosis Status: Acute (5) GERD with esophagitis Status: Acute Comment: PT WILL NEED EGD
[2017-09-23] MEDS ORDERED: INSULIN LISPRO MIX SC SCH ×2 (22:00)
[2017-09-23] MEDS: (Novolin R) Insulin Human Regular 100 units/ml vial SC SCH (22:17)
[2017-09-24 08:31] LABS: BASO # 0.1 K/uL (0.0-0.2); EOS # 0.3 K/uL (0.0-0.7); HEMATOCRIT 44.1 % (34.0-47.0); LYMPH # 2.1 K/uL (1.0-4.3); LYMPH % 15.4 % (20.0-40.0); MEAN CELL VOLUME 80.6 fL (81.0-99.0); MEAN CORPUSCULAR HGB CONC 33.5 g/dL (33.0-37.0); MEAN PLATELET VOLUME 9.9 fL (7.2-11.7); MONO # 0.8 K/uL (0.0-0.8); MONO % 6.1 % (0.0-10.0); NRBC % 0.1 % (0.0-2.0); RED CELL DISTRIBUTION WIDTH 14.7 % (11.5-14.5); WHITE BLOOD COUNT 13.5 K/uL (4.8-10.8)
--- NOTE | 2017-09-24 08:34 | CP.PCM.CON ---
<Saskia Mederos - Last Filed: 09/24/17 09:42> History of Present Illness - History of Present Illness History of Present Illness: This is a 86yF with pmhx of CAD s/p cardiac stent, recent cardiac cath 01/2017 stent to LAD lesion on aspirin 325mg and plavix 75mg daily, HTN, HLD, DM. Pt is presenting with complaints of epigastric abdominal pain since she started the new medication, pt is unable to specify which medication she thinks is causing her symptoms. Pt reports nausea at times, no vomiting, denies acid reflux or regurgitation. At home pt is on Pepcid 40mg daily and taking aspirin 325mg daily /plavix 75mg daily. Pt dneies rectal bleeding or coffee ground emesis. Pt reports she had colonoscopy many years ago and is unable to recall findings. On review of records pt had laproscopic cholecystectomy on November 2015 for acute cholecystsitis. At that time 11/2015 pt underwent EGD/EUS to r/o choledocholithiais, neg. EGD showed erosive gastritis in antrum and bx negative for H.pylori, mild chronic inflammation, minute intestinal metaplasia. Pt reports BM every 2 days but denies hard stool or straining. At the time of evaluation, pt was complaining of epigastric abdominal discomfort. ROS: A 12pt ROS was negative except as above PmHx: As stated in HPI PsHx: lap dominique, cath, EGD, EUS SHx: denies tobacco, etoh, drugs FHx: denies colon cancer Past Patient History - Infectious Disease Hx of Infectious Diseases: None - Past Medical History & Family History Past Medical History?: Yes - Past Social History Smoking Status: Former Smoker - CARDIAC Hx Hypercholesterolemia: Yes Hx Hypertension: Yes - PULMONARY Hx Chronic Obstructive Pulmonary Disease (COPD): Yes - NEUROLOGICAL Hx Neurological Disorder: No - HEENT Hx HEENT Problems: Yes Hx Cataracts: Yes (BILAT.) Other/Comment: Difficult hearing - RENAL Hx Chronic Kidney Disease: No - ENDOCRINE/METABOLIC Hx Endocrine Disorders: Yes Hx Diabetes Mellitus Type 2: Yes - HEMATOLOGICAL/ONCOLOGICAL Hx Blood Disorders: No - INTEGUMENTARY Hx Dermatological Problems: No - MUSCULOSKELETAL/RHEUMATOLOGICAL Hx Musculoskeletal Disorders: Yes Hx Degenerative Joint Disease: Yes Hx Falls: Yes - GASTROINTESTINAL Hx Gall Bladder Disease: Yes - GENITOURINARY/GYNECOLOGICAL Hx Genitourinary Disorders: No Other/Comment: TUBAL LIGATION,CEASEREAN X 2 - PSYCHIATRIC Hx Substance Use: No - SURGICAL HISTORY Hx Cholecystectomy: Yes Hx Coronary Stent: Yes - ANESTHESIA Hx Anesthesia: Yes Hx Anesthesia Reactions: No Hx Malignant Hyperthermia: No Meds Allergies/Adverse Reactions: Allergies Allergy/AdvReac Type Severity Reaction Status Date / Time cephalexin Allergy Intermediate RASH Verified 01/17/17 11:54 Penicillins Allergy Intermediate RASH Verified 01/17/17 11:54 lactose Allergy Mild ABDOMINAL Verified 01/17/17 11:54 DISCOMFORT - Medications Medications: Current Medications Amlodipine Besylate (Norvasc) 10 mg PO DAILY [facility] Aspirin (Aspirin) 325 mg PO DAILY [facility] Clopidogrel Bisulfate (Plavix) 75 mg PO DAILY [facility] Enalapril Maleate (Vasotec) 20 mg PO DAILY [facility] Famotidine (Pepcid) 40 mg PO DAILY [facility] Heparin Sodium (Porcine) (Heparin) 5,000 units SC Q12 [facility] Home Med (Insulin Lispro Mix 75/25 [Humalog Mix 75/25]) 45 unit SC AMHS [facility] Home Med (Insulin Lispro Mix 75/25 [Humalog Mix 75/25]) 50 unit SC HS [facility] Home Med (Linagliptin [Tradjenta]) 5 mg PO DAILY [facility] Insulin Human Regular (Novolin R) 0 unit SC ACHS [facility] PRN Reason: Protocol Last Admin: 09/23/17 22:17 Dose: Not Given Labetalol HCl (Trandate) 100 mg PO BID [facility] Nitroglycerin (Nitrostat Sl Tab) 0.4 mg SL Q5MIN PRN PRN Reason: CHEST PAIN Pantoprazole Sodium (Protonix Ec Tab) 40 mg PO DAILY [facility] Physical Exam - Constitutional Appears: Non-toxic, No Acute Distress - Head Exam Head Exam: ATRAUMATIC, NORMAL INSPECTION, NORMOCEPHALIC - Eye Exam Eye Exam: EOMI, Normal appearance, PERRL Pupil Exam: PERRL - ENT Exam ENT Exam: Mucous Membranes Moist, Normal Exam - Neck Exam Neck exam: Positive for: Normal Inspection - Respiratory Exam Respiratory Exam: Clear to Auscultation Bilateral, NORMAL BREATHING PATTERN - Cardiovascular Exam Cardiovascular Exam: REGULAR RHYTHM - GI/Abdominal Exam GI & Abdominal Exam: Normal Bowel Sounds, Soft, Tenderness. absent: Distended, Firm, Organomegaly - Rectal Exam Rectal Exam: Deferred - Extremities Exam Extremities exam: Positive for: full ROM, normal inspection - Back Exam Back exam: NORMAL INSPECTION - Neurological Exam Neurological exam: Alert, Oriented x3 - Psychiatric Exam Psychiatric exam: Normal Affect, Normal Mood - Skin Skin Exam: Dry, Intact, Normal Color, Warm Results - Vital Signs Recent Vital Signs: Last Vital Signs Temp 98.4 F 09/24/17 04:34 Pulse 78 09/24/17 04:34 Resp 20 09/24/17 04:34 BP 148/73 09/24/17 04:34 Pulse Ox 94 L 09/24/17 00:50 - Labs Result Diagrams: 09/24/17 08:20 09/24/17 08:20 Labs: Laboratory Results - last 24 hr 09/23/17 09/23/17 09/23/17 16:55 16:55 16:55 WBC 15.7 H RBC 5.53 H Hgb 15.0 Hct 44.4 MCV 80.3 L MCH 27.1 MCHC 33.8 RDW 14.9 H Plt Count 279 MPV 10.3 Neut % (Auto) 75.3 H Lymph % (Auto) 16.8 L [place] % (Auto) 5.2 Eos % (Auto) 1.9 Baso % (Auto) 0.8 Neut # 11.9 H Lymph # 2.7 [place] # 0.8 Eos # 0.3 Baso # 0.1 PT 12.8 H INR 1.1 APTT 27 Sodium 138 Potassium 4.2 Chloride 101 Carbon Dioxide 29 Anion Gap 13 BUN 23 H Creatinine 1.1 Est GFR ( Amer) 57 Est GFR (Non-Af Amer) 47 POC Glucose (mg/dL) Random Glucose 235 H Calcium 8.6 Total Bilirubin 0.8 AST 20 ALT 37 Alkaline Phosphatase 101 Total Creatine Kinase CK-MB (Mass) Troponin I < 0.0120 NT-Pro-B Natriuret Pep 1240 H Total Protein 8.4 H Albumin 4.0 Globulin 4.4 H Albumin/Globulin Ratio 0.9 L Urine Color Urine Clarity Urine pH Ur Specific [place] Urine Protein Urine Glucose (UA) Urine Ketones Urine Blood Urine Nitrate Urine Bilirubin Urine Urobilinogen Ur Leukocyte Esterase Urine WBC (Auto) Urine RBC (Auto) Ur Squamous Epith Cells Urine Bacteria 09/23/17 09/23/17 09/24/17 19:25 22:33 01:03 WBC RBC Hgb Hct MCV MCH MCHC RDW Plt Count MPV Neut % (Auto) Lymph % (Auto) [place] % (Auto) Eos % (Auto) Baso % (Auto) Neut # Lymph # [place] # Eos # Baso # PT INR APTT Sodium Potassium Chloride Carbon Dioxide Anion Gap BUN Creatinine Est GFR ( Amer) Est GFR (Non-Af Amer) POC Glucose (mg/dL) 194 H Random Glucose Calcium Total Bilirubin AST ALT Alkaline Phosphatase Total Creatine Kinase 67 CK-MB (Mass) 1.42 Troponin I < 0.0120 NT-Pro-B Natriuret Pep Total Protein Albumin Globulin Albumin/Globulin Ratio Urine Color Yellow Urine Clarity Clear Urine pH 6.0 Ur Specific [place] 1.024 Urine Protein 2+ H Urine Glucose (UA) 1+ Urine Ketones Negative Urine Blood Negative Urine Nitrate Negative Urine Bilirubin Negative Urine Urobilinogen 2.0 H Ur Leukocyte Esterase 1+ H Urine WBC (Auto) 31 H Urine RBC (Auto) 10 H Ur Squamous Epith Cells 17 H Urine Bacteria Few H 09/24/17 06:26 WBC RBC Hgb Hct MCV MCH MCHC RDW Plt Count MPV Neut % (Auto) Lymph % (Auto) [place] % (Auto) Eos % (Auto) Baso % (Auto) Neut # Lymph # [place] # Eos # Baso # PT INR APTT Sodium Potassium Chloride Carbon Dioxide Anion Gap BUN Creatinine Est GFR ( Amer) Est GFR (Non-Af Amer) POC Glucose (mg/dL) 162 H Random Glucose Calcium Total Bilirubin AST ALT Alkaline Phosphatase Total Creatine Kinase CK-MB (Mass) Troponin I NT-Pro-B Natriuret Pep Total Protein Albumin Globulin Albumin/Globulin Ratio Urine Color Urine Clarity Urine pH Ur Specific [place] Urine Protein Urine Glucose (UA) Urine Ketones Urine Blood Urine Nitrate Urine Bilirubin Urine Urobilinogen Ur Leukocyte Esterase Urine WBC (Auto) Urine RBC (Auto) Ur Squamous Epith Cells Urine Bacteria Assessment & Plan - Assessment and Plan (Free Text) Assessment: This is a 86yF presenting with abdominal pain. 1. Epigastric abdominal pain 2. Gastritis/ intestinal metaplasia 3. CAD on aspirin 325mg and plavix 75mg 4. Constipation 5. HTN Plan: -Continue supportive care with pain control and anti-emetic -Abdominal pain can be multifactorial-erosive gastritis on EGD 11/2015 currently on aspirin 325mg, gastroparesis with elevated HgA1C in April, constipation -Will recheck HgbA1c -Will order bowel regimen with miralax daily -Will start po PPI daily prior to breakfast and monitor for clinical improvement -No plan for endoscopic evaluation at this time, conservative treatment with PPI -Will continue to follow <Alfonso Cross - Last Filed: 09/24/17 09:55> Meds - Medications Medications: Current Medications Amlodipine Besylate (Norvasc) 10 mg PO DAILY [facility] Aspirin (Aspirin) 325 mg PO DAILY [facility] Clopidogrel Bisulfate (Plavix) 75 mg PO DAILY [facility] Enalapril Maleate (Vasotec) 20 mg PO DAILY [facility] Heparin Sodium (Porcine) (Heparin) 5,000 units SC Q12 [facility] Home Med (Insulin Lispro Mix 75/25 [Humalog Mix 75/25]) 45 unit SC [facility]HS [facility] Home Med (Insulin Lispro Mix 75/25 [Humalog Mix 75/25]) 50 unit SC HS [facility] Home Med (Linagliptin [Tradjenta]) 5 mg PO DAILY [facility] Insulin Human Regular (Novolin R) 0 unit SC ACHS [facility] PRN Reason: Protocol Last Admin: 09/24/17 09:04 Dose: 2 unit Labetalol HCl (Trandate) 100 mg PO BID [facility] Nitroglycerin (Nitrostat Sl Tab) 0.4 mg SL Q5MIN PRN PRN Reason: CHEST PAIN Ondansetron HCl (Zofran Inj) 4 mg IVP DAILY@ONCE PRN PRN Reason: Nausea/Vomiting Pantoprazole Sodium (Protonix Ec Tab) 40 mg PO DAILY [facility] Polyethylene Glycol (Miralax) 17 gm PO DAILY [facility] Results - Vital Signs Recent Vital Signs: Last Vital Signs Temp 98.4 F 09/24/17 04:34 Pulse 78 09/24/17 04:34 Resp 20 09/24/17 04:34 BP 148/73 09/24/17 04:34 Pulse Ox 94 L 09/24/17 00:50 - Labs Result Diagrams: 09/24/17 08:20 09/24/17 08:20 Labs: Laboratory Results - last 24 hr 09/23/17 09/23/17 09/23/17 16:55 16:55 16:55 WBC 15.7 H RBC 5.53 H Hgb 15.0 Hct 44.4 MCV 80.3 L MCH 27.1 MCHC 33.8 RDW 14.9 H Plt Count 279 MPV 10.3 Neut % (Auto) 75.3 H Lymph % (Auto) 16.8 L [place] % (Auto) 5.2 Eos % (Auto) 1.9 Baso % (Auto) 0.8 Neut # 11.9 H Lymph # 2.7 [place] # 0.8 Eos # 0.3 Baso # 0.1 PT 12.8 H INR 1.1 APTT 27 Sodium 138 Potassium 4.2 Chloride 101 Carbon Dioxide 29 Anion Gap 13 BUN 23 H Creatinine 1.1 Est GFR ( Amer) 57 Est GFR (Non-Af Amer) 47 POC Glucose (mg/dL) Random Glucose 235 H Calcium 8.6 Total Bilirubin 0.8 AST 20 ALT 37 Alkaline Phosphatase 101 Total Creatine Kinase CK-MB (Mass) Troponin I < 0.0120 NT-Pro-B Natriuret Pep 1240 H Total Protein 8.4 H Albumin 4.0 Globulin 4.4 H Albumin/Globulin Ratio 0.9 L Urine Color Urine Clarity Urine pH Ur Specific [place] Urine Protein Urine Glucose (UA) Urine Ketones Urine Blood Urine Nitrate Urine Bilirubin Urine Urobilinogen Ur Leukocyte Esterase Urine WBC (Auto) Urine RBC (Auto) Ur Squamous Epith Cells Urine Bacteria 09/23/17 09/23/17 09/24/17 19:25 22:33 01:03 WBC RBC Hgb Hct MCV MCH MCHC RDW Plt Count MPV Neut % (Auto) Lymph % (Auto) [place] % (Auto) Eos % (Auto) Baso % (Auto) Neut # Lymph # [place] # Eos # Baso # PT INR APTT Sodium Potassium Chloride Carbon Dioxide Anion Gap BUN Creatinine Est GFR ( Amer) Est GFR (Non-Af Amer) POC Glucose (mg/dL) 194 H Random Glucose Calcium Total Bilirubin AST ALT Alkaline Phosphatase Total Creatine Kinase 67 CK-MB (Mass) 1.42 Troponin I < 0.0120 NT-Pro-B Natriuret Pep Total Protein Albumin Globulin Albumin/Globulin Ratio Urine Color Yellow Urine Clarity Clear Urine pH 6.0 Ur Specific [place] 1.024 Urine Protein 2+ H Urine Glucose (UA) 1+ Urine Ketones Negative Urine Blood Negative Urine Nitrate Negative Urine Bilirubin Negative Urine Urobilinogen 2.0 H Ur Leukocyte Esterase 1+ H Urine WBC (Auto) 31 H Urine RBC (Auto) 10 H Ur Squamous Epith Cells 17 H Urine Bacteria Few H 09/24/17 09/24/17 09/24/17 06:26 08:20 08:20 WBC 13.5 H RBC 5.47 H Hgb 14.8 Hct 44.1 MCV 80.6 L MCH 27.0 MCHC 33.5 RDW 14.7 H Plt Count 265 MPV 9.9 Neut % (Auto) 75.5 H Lymph % (Auto) 15.4 L [place] % (Auto) 6.1 Eos % (Auto) 2.0 Baso % (Auto) 1.0 Neut # 10.2 H Lymph # 2.1 [place] # 0.8 Eos # 0.3 Baso # 0.1 PT INR APTT Sodium 141 Potassium 3.9 Chloride 103 Carbon Dioxide 26 Anion Gap 15 BUN 20 H Creatinine 1.0 Est GFR ( Amer) > 60 Est GFR (Non-Af Amer) 53 POC Glucose (mg/dL) 162 H Random Glucose 215 H Calcium 8.4 L Total Bilirubin 1.0 AST 34 ALT 28 Alkaline Phosphatase 103 Total Creatine Kinase 49 CK-MB (Mass) 1.14 Troponin I 0.0120 NT-Pro-B Natriuret Pep Total Protein 7.0 Albumin 3.8 Globulin 3.2 Albumin/Globulin Ratio 1.2 Urine Color Urine Clarity Urine pH Ur Specific [place] Urine Protein Urine Glucose (UA) Urine Ketones Urine Blood Urine Nitrate Urine Bilirubin Urine Urobilinogen Ur Leukocyte Esterase Urine WBC (Auto) Urine RBC (Auto) Ur Squamous Epith Cells Urine Bacteria Attending/Attestation - Attestation I have personally seen and examined this patient.: Yes I have fully participated in the care of the patient.: Yes I have reviewed all pertinent clinical information: Yes Notes (Text): 09/24/17 09:48 I have seen and examined patient with GI fellow. Agree with above documentation with the following additions. In brief, this is an 86 year old female with history of CAD s/p stent in January 2017, HTN, DM, hyperlipidemia who presented to hospital with complaint of chest pain and cough. GI called for evaluation of persistent nausea. She describes having daily nausea associated with intermittent mild epigastric abdominal discomfort for the past 2 months. Her symptoms initially began following cardiac procedure in January but recently have intensified. She denies vomiting, diarrhea, fever/chills, weight loss, dysphagia, rectal bleeding, or change in bowel habits. She had cholecystectomy in 2015 and also EGD during that time which showed gastritis (biopsies negative for helicobacter pylori). She had a colonoscopy more than 7 years ago which was normal as per patient. She does admit to intermittent constipation and typically has a bowel movement every 2 days. CAD s/p stent HTN DM Hyperlipidemia Nausea, abdominal pain - likely multifactorial related to constipation and uncontrolled DM (HBA1C in April was > 9) - Diet as tolerated - Anti-emetic therapy PRN - Begin PPI therapy - Begin bowel regimen with miralax for management of constipation symptoms - Recheck HBA1C, suggest strict glycemic control - Continue with supportive care and observation. If symptoms persist despite conservative therapy, would consider endoscopic evaluation. Will continue to monitor patient clinical course.
[2017-09-24] MEDS: (Novolin R) Insulin Human Regular 100 units/ml vial SC SCH ×3 (09:04→19:05)
[2017-09-24 09:10] LABS: ALB/GLOB RATIO 1.2 (1.0-2.1); ALKALINE PHOSPHATASE 103 U/L (38-126); ALT/SGPT 28 U/L (9-52); AST/SGOT 34 U/L (14-36); BLOOD UREA NITROGEN 20 mg/dL (7-17); CALCIUM 8.4 mg/dl (8.6-10.4); CARBON DIOXIDE 26 mmol/L (22-30); CHLORIDE 103 mmol/L (98-107); GFR AFRICAN-AMERICAN > 60; GLUCOSE,RANDOM 215 mg/dL (65-105); POTASSIUM 3.9 mmol/L (3.6-5.2); SODIUM 141 mmol/L (132-148)
[2017-09-24] MEDS: POLYETHYLENE GLYCOL 3350 17 GM/Dose PACKET PO SCH (10:45)
[2017-09-24 13:41] LABS: TROPONIN I 0.013 ng/mL (0.00-0.120)
--- NOTE | 2017-09-24 15:38 | CP.PCM.PN ---
Subjective - Date & Time of Evaluation Date of Evaluation: 09/24/17 Time of Evaluation: 15:33 - Subjective Subjective: CHIEF COMPLAINTS TODAY NAUSEA WITH EPIGASTRIC PAIN ROS. HEENT : N. Resp : No cough, wheezing ,pleuritic CP ,or hemoptysis Cardio : No anginal CP, PND, orthopnea, palpitation GI : NoGI bleeding . [employer] : No headache, vertigo, focal deficit. Musculoskel : No joint swelling , Derm : No rash Psych : Normal affect. Ext : No swelling ,calf pain PE. Pt. is alert awake in no distress. V.S As noted in the chart Head ,ear nose,throat and eyes : Normal. Neck : Supple with normal carotids. Lungs: Clear air entry. Heart : S1 & S2 normal with S4. No murmur. Abd : Soft non tender with normal bowel sounds. Neuro : Moves all ext. with no localized deficit. Ext : No edema with intact pulses.Non tender calves Derm : No rashes or decubitus ulcer. LABS/RADIOLOGY: ASSESSMENT/PLAN : GI EVALUATION APPRECIATED CONT SUPPORTIVE MANAGEMENT Objective - Vital Signs/Intake and Output Vital Signs (last 24 hours): Temp Pulse Resp BP Pulse Ox 98.4 F 78 20 152/81 H 94 L 09/24/17 04:34 09/24/17 04:34 09/24/17 04:34 09/24/17 10:46 09/24/17 00:50 - Medications Medications: Current Medications Amlodipine Besylate (Norvasc) 10 mg PO DAILY [facility] Last Admin: 09/24/17 10:45 Dose: 10 mg Aspirin (Aspirin) 325 mg PO DAILY [facility] Last Admin: 09/24/17 10:44 Dose: 325 mg Clopidogrel Bisulfate (Plavix) 75 mg PO DAILY [facility] Last Admin: 09/24/17 10:45 Dose: 75 mg Enalapril Maleate (Vasotec) 20 mg PO DAILY [facility] Last Admin: 09/24/17 10:46 Dose: 20 mg Heparin Sodium (Porcine) (Heparin) 5,000 units SC Q12 [facility] Last Admin: 09/24/17 10:44 Dose: 5,000 units Home Med (Insulin Lispro Mix 75/25 [Humalog Mix 75/25]) 45 unit SC AMHS [facility] Home Med (Insulin Lispro Mix 75/25 [Humalog Mix 75/25]) 50 unit SC HS [facility] Home Med (Linagliptin [Tradjenta]) 5 mg PO DAILY [facility] Insulin Human Regular (Novolin R) 0 unit SC ACHS [facility] PRN Reason: Protocol Last Admin: 09/24/17 12:02 Dose: 6 unit Labetalol HCl (Trandate) 100 mg PO BID [facility] Last Admin: 09/24/17 10:45 Dose: 100 mg Nitroglycerin (Nitrostat Sl Tab) 0.4 mg SL Q5MIN PRN PRN Reason: CHEST PAIN Ondansetron HCl (Zofran Inj) 4 mg IVP DAILY@ONCE PRN PRN Reason: Nausea/Vomiting Pantoprazole Sodium (Protonix Ec Tab) 40 mg PO DAILY [facility] Polyethylene Glycol (Miralax) 17 gm PO DAILY [facility] Last Admin: 09/24/17 10:45 Dose: 17 gm - Labs Labs: 09/24/17 08:20 09/24/17 08:20 PT 12.8 SECONDS (9.7-12.2) H 09/23/17 16:55 INR 1.1 09/23/17 16:55 APTT 27 SECONDS (21-34) 09/23/17 16:55 Assessment and Plan (1) CAD (coronary artery disease) Status: Chronic (2) Chest pain Status: Acute (3) Diabetes 1.5, managed as type 2 Status: Chronic (4) Leukocytosis Status: Acute (5) GERD with esophagitis Status: Acute
[2017-09-24 17:44] VITALS: RESP 20
[2017-09-25] MEDS: (Novolin R) Insulin Human Regular 100 units/ml vial SC SCH ×4 (00:41→17:22)
--- NOTE | 2017-09-25 07:16 | CP.PCM.PN ---
<Benson Balbuena - Last Filed: 09/25/17 10:06> Subjective - Date & Time of Evaluation Date of Evaluation: 09/25/17 Time of Evaluation: 06:58 - Subjective Subjective: Benson Balbuena D.O. PGY-2, GI Progress Note 86 year old female with a PMH of CAD s/p LAD stent 01/2017, HTN, HLD, and DM who presented to for chest pain/epigastric abdominal pain. Patient was seen and examined at bedside. Patient states that she still has some abdominal discomfort at times but it is very mild compared to when she first presented. Patient denies any nausea, vomiting, or other symptoms but has noticed that she hasn't moved in her bowels in about 2 days. Otherwise patient cites no complaints. No acute overnight events. Objective - Vital Signs/Intake and Output Vital Signs (last 24 hours): Temp Pulse Resp BP Pulse Ox 98.6 F 74 20 126/65 97 09/24/17 23:25 09/24/17 23:25 09/24/17 23:25 09/24/17 23:25 09/24/17 23:25 - Medications Medications: Current Medications Amlodipine Besylate (Norvasc) 10 mg PO DAILY [facility] Last Admin: 09/24/17 10:45 Dose: 10 mg Aspirin (Aspirin) 325 mg PO DAILY [facility] Last Admin: 09/24/17 10:44 Dose: 325 mg Clopidogrel Bisulfate (Plavix) 75 mg PO DAILY [facility] Last Admin: 09/24/17 10:45 Dose: 75 mg Enalapril Maleate (Vasotec) 20 mg PO DAILY [facility] Last Admin: 09/24/17 10:46 Dose: 20 mg Famotidine (Pepcid) 20 mg PO DAILY [facility] Heparin Sodium (Porcine) (Heparin) 5,000 units SC Q12 [facility] Last Admin: 09/24/17 21:47 Dose: 5,000 units Home Med (Insulin Lispro Mix 75/25 [Humalog Mix 75/25]) 45 unit SC [facility] Home Med (Insulin Lispro Mix 75/25 [Humalog Mix 75/25]) 50 unit SC HS [facility] Home Med (Linagliptin [Tradjenta]) 5 mg PO DAILY [facility] Insulin Human Regular (Novolin R) 0 unit SC ACHS [facility] PRN Reason: Protocol Last Admin: 09/25/17 00:41 Dose: 3 unit Labetalol HCl (Trandate) 100 mg PO BID [facility] Last Admin: 09/24/17 19:06 Dose: 100 mg Nitroglycerin (Nitrostat Sl Tab) 0.4 mg SL Q5MIN PRN PRN Reason: CHEST PAIN Ondansetron HCl (Zofran Inj) 4 mg IVP DAILY@ONCE PRN PRN Reason: Nausea/Vomiting Last Admin: 09/24/17 20:00 Dose: 4 mg Polyethylene Glycol (Miralax) 17 gm PO DAILY [facility] Last Admin: 09/24/17 10:45 Dose: 17 gm - Labs Labs: 09/24/17 08:20 09/24/17 08:20 PT 12.8 SECONDS (9.7-12.2) H 09/23/17 16:55 INR 1.1 09/23/17 16:55 APTT 27 SECONDS (21-34) 09/23/17 16:55 - Constitutional Appears: Non-toxic, No Acute Distress - Head Exam Head Exam: ATRAUMATIC, NORMOCEPHALIC - Eye Exam Eye Exam: Normal appearance, PERRL. absent: Scleral icterus - ENT Exam ENT Exam: Mucous Membranes Moist, Normal Oropharynx - Neck Exam Neck Exam: Normal Inspection. absent: Tenderness - Respiratory Exam Respiratory Exam: Clear to Ausculation Bilateral. absent: Rhonchi, Wheezes - Cardiovascular Exam Cardiovascular Exam: RRR, +S1, +S2, Murmur (2/6 systolic) - GI/Abdominal Exam GI & Abdominal Exam: Soft, Normal Bowel Sounds. absent: Distended, Tenderness - Extremities Exam Extremities Exam: absent: Calf Tenderness, Tenderness - Neurological Exam Neurological Exam: Alert, Awake, Oriented x3 - Psychiatric Exam Psychiatric exam: Normal Affect, Normal Mood - Skin Skin Exam: Dry, Warm Assessment and Plan - Assessment and Plan (Free Text) Assessment: 86 year old female with a PMH of CAD s/p LAD stent 01/2017, HTN, HLD, and DM who presented to for epigastric abdominal pain Plan: Epigastric abdominal pain with nausea HLD, HTN, DM, CAD s/p LAD Stent Continue supportive care Etiology likely multifactorial given high dose ASA and plavix, possible gastroparesis with elevated HgbA1c, and known intestinal metaplasia on EGD HgbA1c repeat pending Continue antiemetics PRN Continue bowel regimen with miralax Continue PPI therapy Strict glycemic control Discussed with GI fellow and attending physician We will sign off at this time Thank you for the pleasure of participating in the care of this patient <Bhakti Ahmadi MD - Last Filed: 09/25/17 17:16> Objective - Vital Signs/Intake and Output Vital Signs (last 24 hours): Temp Pulse Resp BP Pulse Ox 98.5 F 65 20 118/71 95 09/25/17 15:35 09/25/17 16:24 09/25/17 15:35 09/25/17 15:35 09/25/17 15:35 Intake and Output: 09/25/17 09/25/17 06:59 18:59 Intake Total 480 Balance 480 - Medications Medications: Current Medications Amlodipine Besylate (Norvasc) 10 mg PO DAILY [facility] Last Admin: 09/25/17 09:44 Dose: 10 mg Aspirin (Aspirin) 325 mg PO DAILY [facility] Last Admin: 09/25/17 09:44 Dose: 325 mg Clopidogrel Bisulfate (Plavix) 75 mg PO DAILY [facility] Last Admin: 09/25/17 09:44 Dose: 75 mg Enalapril Maleate (Vasotec) 20 mg PO DAILY [facility] Last Admin: 09/25/17 09:44 Dose: 20 mg Famotidine (Pepcid) 20 mg PO DAILY [facility] Last Admin: 09/25/17 09:44 Dose: 20 mg Heparin Sodium (Porcine) (Heparin) 5,000 units SC Q12 [facility] Last Admin: 09/25/17 09:44 Dose: 5,000 units Insulin Aspart (Novolog Mix 70/30 (70/30 Units/Ml)) 45 units SC [facility] Insulin Human Regular (Novolin R) 0 unit SC [facility] PRN Reason: Protocol Last Admin: 09/25/17 11:26 Dose: 8 unit Labetalol HCl (Trandate) 100 mg PO BID [facility] Last Admin: 09/25/17 09:44 Dose: 100 mg Nitroglycerin (Nitrostat Sl Tab) 0.4 mg SL Q5MIN PRN PRN Reason: CHEST PAIN Ondansetron HCl (Zofran Inj) 4 mg IVP DAILY@ONCE PRN PRN Reason: Nausea/Vomiting Last Admin: 09/24/17 20:00 Dose: 4 mg Polyethylene Glycol (Miralax) 17 gm PO DAILY [facility] Last Admin: 09/25/17 09:44 Dose: 17 gm Sitagliptin Phosphate (Januvia) 25 mg PO DAILY [facility] - Labs Labs: 09/24/17 08:20 09/24/17 08:20 PT 12.8 SECONDS (9.7-12.2) H 09/23/17 16:55 INR 1.1 09/23/17 16:55 APTT 27 SECONDS (21-34) 09/23/17 16:55 Attending/Attestation - Attestation I have personally seen and examined this patient.: Yes I have fully participated in the care of the patient.: Yes I have reviewed all pertinent clinical information, including history, physical exam and plan: Yes Notes (Text): 09/25/17 17:13 Patient seen on rounds this am. This is a 86 year old female with a PMH of CAD s /p LAD stent 01/2017, HTN, HLD, and DM who presented to for epigastric abdominal pain in setting of constipation. Had bowel movement today, feels much better. Tolerating regular diet. Multifactorial etiology with possible gastroparesis with elevated HgbA1c, and constipation. Continue laxatives. Continue PPI therapy. Strict glycemic control. We will sign off at this time. Thnak you for letting us participate in the care of this patient
[2017-09-25 08:19] VITALS: PULSE 65
[2017-09-25] MEDS: POLYETHYLENE GLYCOL 3350 17 GM/Dose PACKET PO SCH (09:44)
--- NOTE | 2017-09-25 13:33 | CP.PCM.PN ---
Subjective - Date & Time of Evaluation Date of Evaluation: 09/25/17 Time of Evaluation: 13:32 - Subjective Subjective: CHIEF COMPLAINTS TODAY NAUSEA WITH EPIGASTRIC PAIN , LESS ROS. HEENT : N. Resp : No cough, wheezing ,pleuritic CP ,or hemoptysis Cardio : No anginal CP, PND, orthopnea, palpitation GI : NoGI bleeding . [employer] : No headache, vertigo, focal deficit. Musculoskel : No joint swelling , Derm : No rash Psych : Normal affect. Ext : No swelling ,calf pain PE. Pt. is alert awake in no distress. V.S As noted in the chart Head ,ear nose,throat and eyes : Normal. Neck : Supple with normal carotids. Lungs: Clear air entry. Heart : S1 & S2 normal with S4. No murmur. Abd : Soft non tender with normal bowel sounds. Neuro : Moves all ext. with no localized deficit. Ext : No edema with intact pulses.Non tender calves Derm : No rashes or decubitus ulcer. LABS/RADIOLOGY: ASSESSMENT/PLAN : GI EVALUATION APPRECIATED CONT SUPPORTIVE MANAGEMENT Objective - Vital Signs/Intake and Output Vital Signs (last 24 hours): Temp Pulse Resp BP Pulse Ox 98 F 65 20 145/72 96 09/25/17 08:17 09/25/17 10:00 09/25/17 08:17 09/25/17 09:44 09/25/17 08:17 Intake and Output: 09/25/17 09/25/17 11:59 23:59 Intake Total 480 Balance 480 - Medications Medications: Current Medications Amlodipine Besylate (Norvasc) 10 mg PO DAILY [facility] Last Admin: 09/25/17 09:44 Dose: 10 mg Aspirin (Aspirin) 325 mg PO DAILY [facility] Last Admin: 09/25/17 09:44 Dose: 325 mg Clopidogrel Bisulfate (Plavix) 75 mg PO DAILY [facility] Last Admin: 09/25/17 09:44 Dose: 75 mg Enalapril Maleate (Vasotec) 20 mg PO DAILY [facility] Last Admin: 09/25/17 09:44 Dose: 20 mg Famotidine (Pepcid) 20 mg PO DAILY [facility] Last Admin: 09/25/17 09:44 Dose: 20 mg Heparin Sodium (Porcine) (Heparin) 5,000 units SC Q12 [facility] Last Admin: 09/25/17 09:44 Dose: 5,000 units Home Med (Insulin Lispro Mix 75/25 [Humalog Mix 75/25]) 45 unit SC [facility] Home Med (Insulin Lispro Mix 75/25 [Humalog Mix 75/25]) 50 unit SC HS [facility] Home Med (Linagliptin [Tradjenta]) 5 mg PO DAILY [facility] Insulin Human Regular (Novolin R) 0 unit SC ACHS [facility] PRN Reason: Protocol Last Admin: 09/25/17 11:26 Dose: 8 unit Labetalol HCl (Trandate) 100 mg PO BID [facility] Last Admin: 09/25/17 09:44 Dose: 100 mg Nitroglycerin (Nitrostat Sl Tab) 0.4 mg SL Q5MIN PRN PRN Reason: CHEST PAIN Ondansetron HCl (Zofran Inj) 4 mg IVP DAILY@ONCE PRN PRN Reason: Nausea/Vomiting Last Admin: 09/24/17 20:00 Dose: 4 mg Polyethylene Glycol (Miralax) 17 gm PO DAILY [facility] Last Admin: 09/25/17 09:44 Dose: 17 gm - Labs Labs: 09/24/17 08:20 09/24/17 08:20 PT 12.8 SECONDS (9.7-12.2) H 09/23/17 16:55 INR 1.1 09/23/17 16:55 APTT 27 SECONDS (21-34) 09/23/17 16:55 Assessment and Plan (1) CAD (coronary artery disease) Status: Chronic (2) Chest pain Status: Acute (3) Diabetes 1.5, managed as type 2 Status: Chronic (4) Leukocytosis Status: Acute (5) GERD with esophagitis Status: Acute
--- NOTE | 2017-09-25 16:40 | CP.PCM.PN ---
Subjective - Date & Time of Evaluation Date of Evaluation: 09/25/17 Time of Evaluation: 16:40 - Subjective Subjective: PATIENT WAS ADMITTED FOR CHEST PAIN; AAO X3 DENIES CHEST PAIN OR SOB AND NO SIGN DISTRESS NOTED Objective - Vital Signs/Intake and Output Vital Signs (last 24 hours): Temp Pulse Resp BP Pulse Ox 98 F 65 20 145/72 96 09/25/17 08:17 09/25/17 16:24 09/25/17 08:17 09/25/17 09:44 09/25/17 08:17 Intake and Output: 09/25/17 09/25/17 06:59 18:59 Intake Total 480 Balance 480 - Medications Medications: Current Medications Amlodipine Besylate (Norvasc) 10 mg PO DAILY [facility] Last Admin: 09/25/17 09:44 Dose: 10 mg Aspirin (Aspirin) 325 mg PO DAILY [facility] Last Admin: 09/25/17 09:44 Dose: 325 mg Clopidogrel Bisulfate (Plavix) 75 mg PO DAILY [facility] Last Admin: 09/25/17 09:44 Dose: 75 mg Enalapril Maleate (Vasotec) 20 mg PO DAILY [facility] Last Admin: 09/25/17 09:44 Dose: 20 mg Famotidine (Pepcid) 20 mg PO DAILY [facility] Last Admin: 09/25/17 09:44 Dose: 20 mg Heparin Sodium (Porcine) (Heparin) 5,000 units SC Q12 [facility] Last Admin: 09/25/17 09:44 Dose: 5,000 units Insulin Aspart (Novolog Mix 70/30 (70/30 Units/Ml)) 45 units SC [facility] Insulin Human Regular (Novolin R) 0 unit SC ACHS [facility] PRN Reason: Protocol Last Admin: 09/25/17 11:26 Dose: 8 unit Labetalol HCl (Trandate) 100 mg PO BID [facility] Last Admin: 09/25/17 09:44 Dose: 100 mg Nitroglycerin (Nitrostat Sl Tab) 0.4 mg SL Q5MIN PRN PRN Reason: CHEST PAIN Ondansetron HCl (Zofran Inj) 4 mg IVP DAILY@ONCE PRN PRN Reason: Nausea/Vomiting Last Admin: 09/24/17 20:00 Dose: 4 mg Polyethylene Glycol (Miralax) 17 gm PO DAILY [facility] Last Admin: 09/25/17 09:44 Dose: 17 gm Sitagliptin Phosphate (Januvia) 25 mg PO DAILY [facility] - Labs Labs: 09/24/17 08:20 09/24/17 08:20 PT 12.8 SECONDS (9.7-12.2) H 09/23/17 16:55 INR 1.1 09/23/17 16:55 APTT 27 SECONDS (21-34) 09/23/17 16:55 - Head Exam Head Exam: ATRAUMATIC - Eye Exam Eye Exam: Normal appearance - Neck Exam Neck Exam: Full ROM - Respiratory Exam Respiratory Exam: NORMAL BREATHING PATTERN - Cardiovascular Exam Cardiovascular Exam: REGULAR RHYTHM - GI/Abdominal Exam GI & Abdominal Exam: Normal Bowel Sounds Assessment and Plan - Assessment and Plan (Free Text) Assessment: A/P PATIENT IS SEEN AND EXAMINED AT THE BEDSIDE LUNG SOUND CLEAR DISCUSS WITH DR MOHAN WHO CLEAR THE PATIENT FOLLOW UP WITH DR MOHAN IN A WEEK AT HIS OFFICE ---CALL HIS OFFICE FOR APPOINTMENT CONTINUE ALL YOUR HOME MEDS PER MED RECS CALL DR MOHAN OR GO TO EMERGENCY ROOM IF SYMPTOMS OR WORSENING DISCUSS WITH PATIENT AND PATIENT'S DAUGHTER WHO AGREE AND VERBALIZED UNDERSTANDING
[2017-09-25 16:59] VITALS: BP 118/71; TEMP 98.5; O2SAT 95
[2017-09-25] MEDS ORDERED: (Novolog Mix 70/30) Insulin Aspart/Insulin Aspar 100 units/ml SC SCH (22:00)
--- NOTE | 2017-09-25 23:20 | CARD ---
APPROVED REPORT EKG Measurement Heart [id number] MA 150P40 [id number] <Conclusion> Normal sinus rhythm Left ventricular hypertrophy with repolarization abnormality Prolonged QT Abnormal ECG
--- NOTE | 2017-09-25 23:24 | CARD ---
APPROVED REPORT EKG Measurement Heart [id number] OH 140P41 [id number] <Conclusion> Normal sinus rhythm Left ventricular hypertrophy with repolarization abnormality Abnormal ECG
--- NOTE | 2017-09-26 14:19 | CP.PCM.DIS ---
Provider - Provider Date of Admission: 09/23/17 18:39 Attending physician: Misty Castillo MD Time Spent in preparation of Discharge (in minutes): 35 Diagnosis - Discharge Diagnosis (1) CAD (coronary artery disease) Status: Chronic (2) Chest pain Status: Acute (3) Diabetes 1.5, managed as type 2 Status: Chronic (4) Leukocytosis Status: Acute (5) GERD with esophagitis Status: Acute Hospital Course - Lab Results Lab Results: Micro Results 09/23/17 17:30 Blood Blood Culture - Preliminary NO GROWTH AFTER 48 HOURS 09/23/17 18:50 Blood Blood Culture - Preliminary NO GROWTH AFTER 48 HOURS 09/23/17 19:10 Urine Urine Culture - Final 10-50,000 CFU/ML. MULTIPLE SPECIES. PROBABLE CONTAMINATION. Most Recent Lab Values WBC 13.5 K/uL (4.8-10.8) H 09/24/17 08:20 RBC 5.47 Mil/uL (3.80-5.20) H 09/24/17 08:20 Hgb 14.8 g/dL (11.0-16.0) 09/24/17 08:20 Hct 44.1 % (34.0-47.0) 09/24/17 08:20 MCV 80.6 fL (81.0-99.0) L 09/24/17 08:20 MCH 27.0 pg (27.0-31.0) 09/24/17 08:20 MCHC 33.5 g/dL (33.0-37.0) 09/24/17 08:20 RDW 14.7 % (11.5-14.5) H 09/24/17 08:20 Plt Count 265 K/uL (130-400) 09/24/17 08:20 MPV 9.9 fL (7.2-11.7) 09/24/17 08:20 Neut % (Auto) 75.5 % (50.0-75.0) H 09/24/17 08:20 Lymph % (Auto) 15.4 % (20.0-40.0) L 09/24/17 08:20 [place] % (Auto) 6.1 % (0.0-10.0) 09/24/17 08:20 Eos % (Auto) 2.0 % (0.0-4.0) 09/24/17 08:20 Baso % (Auto) 1.0 % (0.0-2.0) 09/24/17 08:20 Neut # 10.2 K/uL (1.8-7.0) H 09/24/17 08:20 Lymph # 2.1 K/uL (1.0-4.3) 09/24/17 08:20 [place] # 0.8 K/uL (0.0-0.8) 09/24/17 08:20 Eos # 0.3 K/uL (0.0-0.7) 09/24/17 08:20 Baso # 0.1 K/uL (0.0-0.2) 09/24/17 08:20 PT 12.8 SECONDS (9.7-12.2) H 09/23/17 16:55 INR 1.1 09/23/17 16:55 APTT 27 SECONDS (21-34) 09/23/17 16:55 Sodium 141 mmol/L (132-148) 09/24/17 08:20 Potassium 3.9 mmol/L (3.6-5.2) 09/24/17 08:20 Chloride 103 mmol/L (98-107) 09/24/17 08:20 Carbon Dioxide 26 mmol/L (22-30) 09/24/17 08:20 Anion Gap 15 (10-20) 09/24/17 08:20 BUN 20 mg/dL (7-17) H 09/24/17 08:20 Creatinine 1.0 mg/dL (0.7-1.2) 09/24/17 08:20 Est GFR ( Amer) > 60 09/24/17 08:20 Est GFR (Non-Af Amer) 53 09/24/17 08:20 POC Glucose (mg/dL) 370 mg/dL (65-110) H 09/25/17 16:13 Random Glucose 215 mg/dL (65-105) H 09/24/17 08:20 Hemoglobin A1c 9.4 % (4.2-6.5) H 09/24/17 12:53 Calcium 8.4 mg/dl (8.6-10.4) L 09/24/17 08:20 Total Bilirubin 1.0 mg/dL (0.2-1.3) 09/24/17 08:20 AST 34 U/L (14-36) 09/24/17 08:20 ALT 28 U/L (9-52) 09/24/17 08:20 Alkaline Phosphatase 103 U/L (38-126) 09/24/17 08:20 Total Creatine Kinase 61 U/L (30-135) 09/24/17 13:13 CK-MB (Mass) 1.16 ng/mL (0.0-3.38) 09/24/17 13:13 Troponin I 0.0130 ng/mL (0.00-0.120) 09/24/17 13:13 NT-Pro-B Natriuret Pep 1240 pg/mL (0-900) H 09/23/17 16:55 Total Protein 7.0 g/dL (6.3-8.3) 09/24/17 08:20 Albumin 3.8 g/dL (3.5-5.0) 09/24/17 08:20 Globulin 3.2 gm/dL (2.2-3.9) 09/24/17 08:20 Albumin/Globulin Ratio 1.2 (1.0-2.1) 09/24/17 08:20 Urine Color Yellow (YELLOW) 09/23/17 19:25 Urine Clarity Clear (Clear) 09/23/17 19:25 Urine pH 6.0 (5.0-8.0) 09/23/17 19:25 Ur Specific [place] 1.024 (1.003-1.030) 09/23/17 19:25 Urine Protein 2+ mg/dL (NEGATIVE) H 09/23/17 19:25 Urine Glucose (UA) 1+ mg/dL (Normal) 09/23/17 19:25 Urine Ketones Negative mg/dL (NEGATIVE) 09/23/17 19:25 Urine Blood Negative (NEGATIVE) 09/23/17 19:25 Urine Nitrate Negative (NEGATIVE) 09/23/17 19:25 Urine Bilirubin Negative (NEGATIVE) 09/23/17 19:25 Urine Urobilinogen 2.0 mg/dL (0.2-1.0) H 09/23/17 19:25 Ur Leukocyte Esterase 1+ Unique/uL (Negative) H 09/23/17 19:25 Urine WBC (Auto) 31 /hpf (0-5) H 09/23/17 19:25 Urine RBC (Auto) 10 /hpf (0-3) H 09/23/17 19:25 Ur Squamous Epith Cells 17 /hpf (0-5) H 09/23/17 19:25 Urine Bacteria Few (<OCC) H 09/23/17 19:25 - Hospital Course Hospital Course: 86 y/o female hx of cardiac stents in the past brought by ALS presents to the ED c/o intermittent chest pain, positive cough with phlegm. The patient denies fever, vomiting, diarrhea , and dizziness. PT. WAS ADMITTED IN IN02/06 WITH HIGH WBC AND IMPROVED ON IV AB HAD CATH , WITH LAD LESION SUCCESSFULLY STENTED PT PRIOR TO ADMISSION HAD INTERMITTENT CP AT REST AND EXERTION PT. HAS FREQUENT GERD SYMPTOMS GI CONSULTED PT WAS TREATED SYMPTOMATICALLY WITH ANT ULCER MEDS PT IMPROVED AND D/C ON HER HOME MEDS Discharge Exam - Head Exam Head Exam: ATRAUMATIC Discharge Plan - Follow Up Plan Condition: STABLE Disposition: HOME/ ROUTINE Instructions: Heart Failure (DC), Chest Pain (DC), Heart Healthy Diet (DC), Diabetic Foot Care (DC), Basic Carbohydrate Counting (DC), Meal Planning with the Plate Method (DC), Meal Planning with Diabetes Exchanges (DC) Additional Instructions: FOLLOW UP WITH DR CASTILLO IN A WEEK AT HIS OFFICE ---CALL HIS OFFICE FOR APPOINTMENT CONTINUE ALL YOUR HOME MEDS PER MED RECS CALL DR CASTILLO OR GO TO EMERGENCY ROOM IF SYMPTOMS OR WORSENING Referrals: Misty Castillo MD [Staff Provider] -
== END 2017-09-25 18:28 | disposition home or self-care (01) | DRG 303 ==
LOC: C.ER 16:20 → C.9E 18:39 → C.6T 19:59
PROVIDERS: ADMIT Internal Medicine Cardiovascular Disease; ATTEND Internal Medicine Cardiovascular Disease
DX: I25.10 Atherosclerotic heart disease of native coronary artery without angina pectoris (principal); E11.65 Type 2 diabetes mellitus with hyperglycemia; J44.9 Chronic obstructive pulmonary disease, unspecified; K21.0 Gastro-esophageal reflux disease with esophagitis; Z95.5 Presence of coronary angioplasty implant and graft; I10 Essential (primary) hypertension; E78.00 Pure hypercholesterolemia, unspecified; Z87.891 Personal history of nicotine dependence; Z90.49 Acquired absence of other specified parts of digestive tract; K29.60 Other gastritis without bleeding; K59.00 Constipation, unspecified; Z79.4 Long term (current) use of insulin

== ENCOUNTER 2018-04-24 09:49 | Observation (INO) | payer MEDICARE, MEDICAID ==
[2018-04-24 09:49] VITALS: BMI 29.4
--- NOTE | 2018-04-24 10:24 | C.PDOC ---
History Of Present Illness 87 year old female presents to the ER with a complaint of palpitations, chest pain, and abdominal pain that radiates to the back for the past 7 days, associated with nausea, dysuria, and decreased PO. Patient has a Hx of "seven coronary stents" in the past. Patient notes her recently past away three months ago. Denies vomiting, fever, or chills. Time Seen by Provider: 04/24/18 09:59 Chief Complaint (Nursing): High Blood Pressure History Per: Patient History/Exam Limitations: no limitations Onset/Duration Of Symptoms: Days Current Symptoms Are (Timing): Still Present Associated Symptoms: Other (Nausea, dysuria, abdominal pain, palpitations, decreased appetite) Quality Of Symptoms: Rapid Heart Rate Exacerbating Factor(s): Pos: None Recent travel outside of the [place]: No Past Medical History Reviewed: Historical Data, Nursing Documentation, Vital Signs Vital Signs: Last Vital Signs Temp 98.2 F 04/24/18 17:25 Pulse 74 04/24/18 17:25 Resp 18 04/24/18 17:25 BP 141/66 04/24/18 17:25 Pulse Ox 98 04/24/18 17:25 - Medical History PMH: CAD, COPD, Gall Bladder Disease, HTN, Hypercholesterolemia Surgical History: Cholecystectomy, Coronary Stent, - [facility] Procedures DILATION OF 1 COR ART WITH 2 DRUG-ELUT, PERC APPROACH (01/17/17) DILATION OF 1 COR ART WITH DRUG-ELUT INTRA, PERC APPROACH (01/17/17) EXCISION OF STOMACH, ENDO, DIAGN (11/19/15) FLUOROSCOPY OF LEFT HEART USING LOW OSMOLAR CONTRAST (01/17/17) MEASURE OF CARDIAC SAMPL & PRESSURE, L HEART, PERC APPROACH (01/17/17) OTHER ENDOSCOPY OF SM INTEST (01/02/14) RADIOGRAPHY OF GALLBLADDER & BILE DUCT USING L OSM CONTRAST (11/21/15) RESECTION OF GALLBLADDER, PERCUTANEOUS ENDOSCOPIC APPROACH (11/21/15) ULTRASONOGRAPHY OF GALLBLADDER AND BILE DUCTS (11/19/15) Family History: States: Unknown Family Hx - Social History Hx Tobacco Use: No Hx Alcohol Use: No Hx Substance Use: No - Immunization History Hx Tetanus Toxoid Vaccination: Yes Hx Influenza Vaccination: Yes Hx Pneumococcal Vaccination: Yes Review Of Systems Constitutional: Positive for: Other (Decreased appetite). Negative for: Fever, Chills Cardiovascular: Positive for: Palpitations Respiratory: Negative for: Cough, Shortness of Breath Gastrointestinal: Positive for: Nausea, Abdominal Pain. Negative for: Vomiting Genitourinary: Positive for: Dysuria Neurological: Negative for: Weakness, Numbness Physical Exam - Physical Exam Appears: Non-toxic Skin: Normal Color, Warm, Dry Head: Atraumatic, Normacephalic Eye(s): bilateral: Normal Inspection Oral Mucosa: Moist Neck: Normal, Supple Chest: Symmetrical, No Tenderness Cardiovascular: Rhythm Regular, No Friction Rub, No Murmur Respiratory: Normal Breath Sounds, No Rales, No Rhonchi, No Wheezing Gastrointestinal/Abdominal: Soft, No Tenderness Back: No CVA Tenderness, No Vertebral Tenderness, No Paraspinal Tenderness Extremity: Normal ROM (x4), No Tenderness, No Pedal Edema, No Calf Tenderness, Capillary Refill (<2 seconds), No Deformity, No Swelling Pulses: Left Dorsalis Pedis: Normal, Right Dorsalis Pedis: Normal Neurological/Psych: Oriented x3, Normal Speech, Normal Motor, Normal Sensation Gait: Steady ED Course And Treatment - Laboratory Results Result Diagrams: 04/24/18 11:07 04/24/18 11:07 O2 Sat by Pulse Oximetry: 98 (Room air) Pulse Ox Interpretation: Normal - Radiology CXR: Viewed By Me, Read By Radiologist CXR Interpretation: Yes: No Acute Disease - CT Scan/US CTA Other Rad Studies (CT/US): Read By Radiologist, Radiology Report Reviewed CT/US Interpretation: IMPRESSION: Unremarkable CT pulmonary angiogram. No pulmonary embolus. Chronic prominence of the interstitial markings. No focal consolidation or pleural effusion Medical Decision Making Medical Decision Making: EKG, blood work, CXR, and urinalysis ordered. The BP elevated labetalol was given. The case was discussed with Dr. Castillo, who agrees to admit the patient to his service. Disposition - Disposition Disposition: HOSPITALIZED Disposition Time: 14:00 Condition: STABLE - Clinical Impression Clinical Impression: Chest pain - PA / CLIENT SERVICE PROFESSIONAL / Resident Statement MD/DO has reviewed & agrees with the documentation as recorded. - Scribe Statement The provider has reviewed the documentation as recorded by the Scribe Patrick Hernandez All medical record entries made by the Scribe were at my direction and personally dictated by me. I have reviewed the chart and agree that the record accurately reflects my personal performance of the history, physical exam, medical decision making, and the department course for this patient. I have also personally directed, reviewed, and agree with the discharge instructions and disposition.
[2018-04-24 11:16] LABS: BASO # 0.2 K/uL (0.0-0.2); BASO % 1.3 % (0.0-2.0); EOS # 0.1 K/uL (0.0-0.7); HEMOGLOBIN 13.8 g/dL (11.0-16.0); LYMPH # 1.3 K/uL (1.0-4.3); MEAN CELL VOLUME 80.6 fL (81.0-99.0); MEAN CORPUSCULAR HEMOGLOBIN 27.6 pg (27.0-31.0); MEAN CORPUSCULAR HGB CONC 34.3 g/dL (33.0-37.0); MEAN PLATELET VOLUME 9.9 fL (7.2-11.7); MONO # 0.6 K/uL (0.0-0.8); NEUT # 9.8 K/uL (1.8-7.0); NEUT % 81.7 % (50.0-75.0); NRBC % 0.1 % (0.0-2.0); RBC 4.99 Mil/uL (3.80-5.20)
--- NOTE | 2018-04-24 11:20 | RAD ---
PROCEDURE: CHEST RADIOGRAPH, 1 VIEW HISTORY: chest pain COMPARISON: 09/23/2017 FINDINGS: LUNGS: Clear. PLEURA: No pneumothorax or pleural fluid seen. CARDIOVASCULAR: Normal. OSSEOUS STRUCTURES: No significant abnormalities. VISUALIZED UPPER ABDOMEN: Normal. OTHER FINDINGS: None. IMPRESSION: No active disease.
[2018-04-24 11:32] LABS: ALB/GLOB RATIO 1.1 (1.0-2.1); ALBUMIN 4.1 g/dL (3.5-5.0); GFR AFRICAN-AMERICAN 57; GFR NON-AFRICAN AMERICAN 47; LIPASE 90 U/L (23-300)
[2018-04-24 11:43] LABS: B-TYPE NATRIURETIC PEPTIDE 728 pg/mL (0-900)
[2018-04-24 11:45] LABS: ALT/SGPT 26 U/L (9-52); AST/SGOT 28 U/L (14-36); BLOOD UREA NITROGEN 23 mg/dL (7-17)
[2018-04-24 12:22] LABS: INR 1.1
[2018-04-24] MEDS ORDERED: Iodixanol 320 MG/ML 100 ML BOTTLE IV ONE (14:32)
[2018-04-24] MEDS ORDERED: Labetalol 25mg/5ml Syringe IV STA (15:05)
[2018-04-24] MEDS ORDERED: Labetalol 25mg/5ml Syringe ONE (15:19)
--- NOTE | 2018-04-24 16:00 | CT ---
PROCEDURE: CT Chest with contrast (Pulmonary Angiogram) HISTORY: chest pain, SOB, r/o PE COMPARISON: CT chest dated 09/02/2015. TECHNIQUE: Axial computed tomography images were obtained of the chest in the pulmonary arterial phase of enhancement. Coronal and sagittal reformatted images were created and reviewed. Intravenous contrast dose: 100 mL Visipaque 320 Radiation dose: Total exam DLP = 440.6 mGy-cm. This CT exam was performed using one or more of the following dose reduction techniques: Automated exposure control, adjustment of the mA and/or kV according to patient size, and/or use of iterative reconstruction technique. FINDINGS: PULMONARY ARTERIES: Unremarkable. No pulmonary embolism. AORTA: No acute findings. No thoracic aortic aneurysm. LUNGS: Peripheral subpleural scarring. Prominence of the interstitial markings. No nodule, mass or pulmonary consolidation. PLEURAL SPACES: Unremarkable. No effusion or pneuomothorax. HEART: Cardiomegaly. No significant pericardial effusion. LYMPH NODES: No lymphadenopathy. BONES, CHEST WALL: Unremarkable. No fracture or destructive lesion OTHER FINDINGS: Scattered hepatic cysts. Prior cholecystectomy. Small hiatal hernia. IMPRESSION: Unremarkable CT pulmonary angiogram. No pulmonary embolus. Chronic prominence of the interstitial markings. No focal consolidation or pleural effusion
--- NOTE | 2018-04-24 19:53 | CP.PCM.HP ---
History of Present Illness - History of Present Illness History of Present Illness: COMPREHENSIVE HISTORY & PHYSICAL EXAM HPI Patient is admitted for chest pain for 24 hour duration. Patient started experiencing retrosternal chest pain radiating to back associated with occasional diaphoresis and palpitation the last 24 hours with increased frequency and intensity. Patient was evaluated in the Emergency Room 1st set of cardiac enzymes and no negative EKG does not show any ST elevation patient is admitted for further observation. PAST HIST. Patient has history of coronary artery disease with 2 stents in circumflex and RCA and had a stress IV Lexiscan done few months ago we did not reveal any inducible ischemia. Patient has a history of peptic ulcer disease and gastritis and is on medication. Patient has type II diabetes on insulin hypertension and history of colitis. 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 PERSONAL HIST: Smoking. N Alcohol. N Allergy N Travel_- . FAMILY HIST : ROS : Constitutional: Negative for weight change, chills, night sweats, glaucoma, cataracts, Ears: Negative for hearing loss, ringing, , tinnitus, vertigo Nose: Negative for rhinorrhea, stuffiness, sniffing, itching, postnasal drip, discoloration, nasal congestion and epistaxis. Throat: Negative for throat clearing, sore throat, hoarseness, difficulty swallowing and difficulty speaking. Respiratory: Negative for cough, chest tightness, sputum or phlegm, chronic cough, hemoptysis, wheezing, snoring at night, pleuritic chest pain and daytime somnolence. Cardiovascular: Negative for Edema of legs, leg cramps, angina, claudication, , irregular heartbeat, Neurology: Negative for irritability, muscle weakness, numbness and tingling, seizures, tremors, migraines, slurred speech, syncope, memory loss, mood changes , recurrent headaches Gastrointestinal: Negative for difficulty swallowing, diarrhea, constipation, black stools, rectal bleeding, nausea, flatulence, reflux, poor appetite, changes in bowel habits, abdominal pain Genitourinary: Negative for frequent urination, hematuria, discharge, incontinence, urinary retention, frequent UTI, Psychiatric: Negative for depression, anxiety/panic, suicidal tendencies, Musculoskeletal: Negative for swollen joints, back pain, , neck pain, morning stiffness of joints, . Skin: Negative for rash, ulcers, itching, dry skin and pigmented lesions. P/E: Constitutional: Appears stated age and in no apparent distress. Head: Normocephalic. Ears: External ear canals patent without inflammation. Tympanic membranes intact with normal light reflex and landmark. Eyes: Pupils are central, bilaterally equal, symmetrical and reacts to light with normal movements and no icterus or pallor. Nose: External nares are patent. Mucosa is pink Mouth-Throat: Good general appearance and condition. No post-pharyngeal/oropharyngeal erythema and tonsillar hypertrophy. Good dental hygiene. Neck-Lymphatic: Neck is supple with normal ROM, no thyromegaly, lymph nodes or masses. JVD is normal with no carotid bruit. Lungs: Clear to percussion and auscultation with bilateral normal air entry. Cardiovascular: S1 and S2 are normal with no murmurs, gallops and rub. GI Exam: No hepatomegaly. Abdomen is soft and non-tender. No Organomegaly , masses or hernias are evident and bowel sounds are normal and active. Neurology: Higher function and all cranial nerves intact, with no gross motor or sensory deficit. Superficial and deep reflexes are normal with downwards planters. No cerebellar deficit with normal gait. Musculoskeletal: No tender spots with normal curvature of the spine with no swelling or restricted ROM of the small and large joints. Extremities: Homans sign absent. Intact pulses with no pitting edema, calf tenderness or skin color changes. Skin: No rash, eruptions or abnormal skin pigmentation LAB/RADIOLOGY: ASSESMENT : Unstable angina with history of coronary artery disease and multiple stents. After the patient on telemetry get serial cardiac enzymes continue antianginal therapy and anticoagulation. Acute gastritis with possibility of colitis. Continue current antiulcer medication. Type II diabetes on insulin continue coverage. Present on Admission - Present on Admission Any Indicators Present on Admission: No Past Patient History - Infectious Disease Hx of Infectious Diseases: None - Past Medical History & Family History Past Medical History?: Yes - Past Social History Smoking Status: Former Smoker - CARDIAC Hx Hypercholesterolemia: Yes Hx Hypertension: Yes - PULMONARY Hx Chronic Obstructive Pulmonary Disease (COPD): Yes - NEUROLOGICAL Hx Neurological Disorder: No - HEENT Hx HEENT Problems: Yes Hx Cataracts: Yes (BILAT.) Other/Comment: Difficult hearing - RENAL Hx Chronic Kidney Disease: No - ENDOCRINE/METABOLIC Hx Endocrine Disorders: Yes Hx Diabetes Mellitus Type 2: Yes - HEMATOLOGICAL/ONCOLOGICAL Hx Blood Disorders: No - INTEGUMENTARY Hx Dermatological Problems: No - MUSCULOSKELETAL/RHEUMATOLOGICAL Hx Musculoskeletal Disorders: Yes Hx Degenerative Joint Disease: Yes Hx Falls: Yes - GASTROINTESTINAL Hx Gall Bladder Disease: Yes - GENITOURINARY/GYNECOLOGICAL Hx Genitourinary Disorders: No Other/Comment: TUBAL LIGATION,CEASEREAN X 2 - PSYCHIATRIC Hx Substance Use: No - SURGICAL HISTORY Hx Cholecystectomy: Yes Hx Coronary Stent: Yes - ANESTHESIA Hx Anesthesia: Yes Hx Anesthesia Reactions: No Hx Malignant Hyperthermia: No Meds Allergies/Adverse Reactions: Allergies Allergy/AdvReac Type Severity Reaction Status Date / Time cephalexin Allergy Intermediate RASH Verified 04/24/18 09:55 Penicillins Allergy Intermediate RASH Verified 04/24/18 09:55 lactose Allergy Mild ABDOMINAL Verified 04/24/18 09:55 DISCOMFORT Results - Vital Signs Recent Vital Signs: Last Vital Signs Temp 98.1 F 04/24/18 19:03 Pulse 75 04/24/18 19:06 Resp 18 04/24/18 19:03 BP 157/68 H 04/24/18 19:03 Pulse Ox 94 L 04/24/18 19:03 - Labs Result Diagrams: 04/24/18 11:07 04/24/18 11:07 Labs: Laboratory Results - last 24 hr 04/24/18 04/24/18 04/24/18 11:07 11:07 11:58 WBC 12.0 H RBC 4.99 Hgb 13.8 Hct 40.2 MCV 80.6 L MCH 27.6 MCHC 34.3 RDW 15.0 H Plt Count 253 MPV 9.9 Neut % (Auto) 81.7 H Lymph % (Auto) 11.0 L [place] % (Auto) 5.0 Eos % (Auto) 1.0 Baso % (Auto) 1.3 Neut # (Auto) 9.8 H Lymph # (Auto) 1.3 [place] # (Auto) 0.6 Eos # (Auto) 0.1 Baso # (Auto) 0.2 PT 12.0 INR 1.1 D-Dimer, Quantitative 282 H Sodium 139 Potassium 4.4 Chloride 104 Carbon Dioxide 24 Anion Gap 15 BUN 23 H Creatinine 1.1 Est GFR ( Amer) 57 Est GFR (Non-Af Amer) 47 Random Glucose 222 H Calcium 9.0 Total Bilirubin 0.9 AST 28 ALT 26 Alkaline Phosphatase 97 Troponin I < 0.0120 NT-Pro-B Natriuret Pep 728 Total Protein 7.7 Albumin 4.1 Globulin 3.6 Albumin/Globulin Ratio 1.1 Lipase 90
[2018-04-24] MEDS: (Novolin R) Insulin Human Regular 100 units/ml vial SC SCH (21:34)
[2018-04-24 21:39] LABS: CK-MB 0.63 ng/mL (0.0-3.38)
[2018-04-25 00:10] VITALS: RESP 20
[2018-04-25] MEDS: (Novolin R) Insulin Human Regular 100 units/ml vial SC SCH ×4 (08:35→21:19)
[2018-04-25] MEDS: Enoxaparin 40 mg Syringe SC SCH (10:27)
--- NOTE | 2018-04-25 12:00 | CP.PCM.PN ---
Subjective - Date & Time of Evaluation Date of Evaluation: 04/25/18 Time of Evaluation: 11:59 - Subjective Subjective: CHIEF COMPLAINTS TODAY : PATIENT HAS NO FURTHER CHEST PAIN BUT STILL COMPLAINS OF VAGUE LOWER ABDOMINAL PAIN. nO NAUSEA VOMITING DIARRHEA ROS. HEENT : N. Resp : No cough, wheezing ,pleuritic CP ,or hemoptysis Cardio : No anginal CP, PND, orthopnea, palpitation GI : No n/v ,diarrhea or GI bleeding . VEGETABLE TESTER : No headache, vertigo, focal deficit. Musculoskel : No joint swelling , Derm : No rash Psych : Normal affect. Ext : No swelling ,calf pain PE. Pt. is alert awake in no distress. V.S As noted in the chart Head ,ear nose,throat and eyes : Normal. Neck : Supple with normal carotids. Lungs: Clear air entry. Heart : S1 & S2 normal with S4. No murmur. Abd : Soft non tender with normal bowel sounds. Neuro : Moves all ext. with no localized deficit. Ext : No edema with intact pulses.Non tender calves Derm : No rashes or decubitus ulcer. LABS/RADIOLOGY: ASSESSMENT/PLAN : WE WILL OBTAIN A ct OF THE ABDOMEN TO RULE OUT DIVERTICULITIS BECAUSE OF THE RECURRENT ABDOMINAL PAIN. cARDIAC ENZYMES 3 ARE NEGATIVE Objective - Vital Signs/Intake and Output Vital Signs (last 24 hours): Temp Pulse Resp BP Pulse Ox 98.0 F 70 20 137/74 97 04/25/18 07:00 04/25/18 08:00 04/25/18 07:00 04/25/18 07:00 04/25/18 08:00 - Medications Medications: Current Medications Amlodipine Besylate (Norvasc) 10 mg PO DAILY [facility] Last Admin: 04/25/18 10:28 Dose: 10 mg Clopidogrel Bisulfate (Plavix) 75 mg PO DAILY [facility] Last Admin: 04/25/18 10:28 Dose: 75 mg Enoxaparin Sodium (Lovenox) 40 mg SC DAILY [facility] Last Admin: 04/25/18 10:27 Dose: 40 mg Famotidine (Pepcid) 20 mg PO DAILY [facility] Last Admin: 04/25/18 10:28 Dose: 20 mg Insulin Human Regular (Novolin R) 0 unit SC [facility] PRN Reason: Protocol Last Admin: 04/25/18 08:35 Dose: 3 units Labetalol HCl (Trandate) 100 mg PO BID [facility] Last Admin: 04/25/18 10:28 Dose: 100 mg - Labs Labs: 04/24/18 11:07 04/24/18 11:07 PT 12.0 SECONDS (9.7-12.2) 04/24/18 11:58 INR 1.1 04/24/18 11:58
[2018-04-25] MEDS ORDERED: Iohexol 240 (50 ml) PO ONE (13:00)
--- NOTE | 2018-04-25 15:06 | CT ---
PROCEDURE: CT Abdomen and Pelvis without intravenous contrast HISTORY: DIVERTICULITIS COMPARISON: CT scan of the abdomen and pelvis dated 11/17/2015. TECHNIQUE: Contiguous images were obtained from the domes of the diaphragms to the upper thighs without the administration of intravenous contrast. Oral contrast was not administered. Radiation dose: Total exam DLP = 792.1 mGy-cm. This CT exam was performed using one or more of the following dose reduction techniques: Automated exposure control, adjustment of the mA and/or kV according to patient size, and/or use of iterative reconstruction technique. FINDINGS: LOWER THORAX: Bibasilar atelectasis/ scarring. Cardiomegaly. Coronary arterial and valvular calcifications. LIVER: Scattered hepatic cysts. No gross lesion or ductal dilatation. GALLBLADDER AND BILE DUCTS: Prior cholecystectomy with surgical clips in place. PANCREAS: Unremarkable. No gross lesion or ductal dilatation. SPLEEN: Unremarkable. ADRENALS: Unremarkable. No mass. KIDNEYS AND URETERS: Small bilateral renal cysts. No hydronephrosis. No solid mass. VASCULATURE: Calcific atherosclerosis. Partially imaged left superficial femoral artery stent. No aortic aneurysm. BOWEL: Small hiatal hernia. No obstruction. No gross mural thickening. APPENDIX: Unremarkable. Normal appendix. PERITONEUM: Unremarkable. No free fluid. No free air. LYMPH NODES: Unremarkable. No enlarged lymph nodes. BLADDER: Unremarkable. REPRODUCTIVE: Stable small lower uterine segment exophytic fibroid. 2.9 x 2.5 cm left ovarian cyst. BONES: No acute fracture. OTHER FINDINGS: None. IMPRESSION: No acute abdominal pelvic pathology. Interval enlargement of 2.9 cm left ovarian cyst. Additional stable findings as above.
[2018-04-26] MEDS: (Novolin R) Insulin Human Regular 100 units/ml vial SC SCH ×2 (08:40→12:47)
[2018-04-26] MEDS: Enoxaparin 40 mg Syringe SC SCH (09:35)
--- NOTE | 2018-04-26 11:57 | CP.PCM.DIS ---
Provider - Provider Date of Admission: 04/24/18 15:49 Attending physician: Misty Castillo MD Time Spent in preparation of Discharge (in minutes): 35 Hospital Course - Lab Results Lab Results: Most Recent Lab Values WBC 12.0 K/uL (4.8-10.8) H 04/24/18 11:07 RBC 4.99 Mil/uL (3.80-5.20) 04/24/18 11:07 Hgb 13.8 g/dL (11.0-16.0) 04/24/18 11:07 Hct 40.2 % (34.0-47.0) 04/24/18 11:07 MCV 80.6 fL (81.0-99.0) L 04/24/18 11:07 MCH 27.6 pg (27.0-31.0) 04/24/18 11:07 MCHC 34.3 g/dL (33.0-37.0) 04/24/18 11:07 RDW 15.0 % (11.5-14.5) H 04/24/18 11:07 Plt Count 253 K/uL (130-400) 04/24/18 11:07 MPV 9.9 fL (7.2-11.7) 04/24/18 11:07 Neut % (Auto) 81.7 % (50.0-75.0) H 04/24/18 11:07 Lymph % (Auto) 11.0 % (20.0-40.0) L 04/24/18 11:07 [place] % (Auto) 5.0 % (0.0-10.0) 04/24/18 11:07 Eos % (Auto) 1.0 % (0.0-4.0) 04/24/18 11:07 Baso % (Auto) 1.3 % (0.0-2.0) 04/24/18 11:07 Neut # (Auto) 9.8 K/uL (1.8-7.0) H 04/24/18 11:07 Lymph # (Auto) 1.3 K/uL (1.0-4.3) 04/24/18 11:07 [place] # (Auto) 0.6 K/uL (0.0-0.8) 04/24/18 11:07 Eos # (Auto) 0.1 K/uL (0.0-0.7) 04/24/18 11:07 Baso # (Auto) 0.2 K/uL (0.0-0.2) 04/24/18 11:07 PT 12.0 SECONDS (9.7-12.2) 04/24/18 11:58 INR 1.1 04/24/18 11:58 D-Dimer, Quantitative 282 ng/mlDDU (0-243) H 04/24/18 11:58 Sodium 139 mmol/L (132-148) 04/24/18 11:07 Potassium 4.4 mmol/L (3.6-5.2) 04/24/18 11:07 Chloride 104 mmol/L (98-107) 04/24/18 11:07 Carbon Dioxide 24 mmol/L (22-30) 04/24/18 11:07 Anion Gap 15 (10-20) 04/24/18 11:07 BUN 23 mg/dL (7-17) H 04/24/18 11:07 Creatinine 1.1 mg/dL (0.7-1.2) 04/24/18 11:07 Est GFR ( Amer) 57 04/24/18 11:07 Est GFR (Non-Af Amer) 47 04/24/18 11:07 POC Glucose (mg/dL) 217 mg/dL (65-110) H 04/26/18 06:06 Random Glucose 222 mg/dL (65-105) H 04/24/18 11:07 Calcium 9.0 mg/dl (8.6-10.4) 04/24/18 11:07 Total Bilirubin 0.9 mg/dL (0.2-1.3) 04/24/18 11:07 AST 28 U/L (14-36) 04/24/18 11:07 ALT 26 U/L (9-52) 04/24/18 11:07 Alkaline Phosphatase 97 U/L (38-126) 04/24/18 11:07 Total Creatine Kinase 45 U/L (30-135) 04/24/18 21:08 CK-MB (Mass) 0.63 ng/mL (0.0-3.38) 04/24/18 21:08 Troponin I < 0.0120 ng/mL (0.00-0.120) 04/24/18 21:08 NT-Pro-B Natriuret Pep 728 pg/mL (0-900) 04/24/18 11:07 Total Protein 7.7 g/dL (6.3-8.3) 04/24/18 11:07 Albumin 4.1 g/dL (3.5-5.0) 04/24/18 11:07 Globulin 3.6 gm/dL (2.2-3.9) 04/24/18 11:07 Albumin/Globulin Ratio 1.1 (1.0-2.1) 04/24/18 11:07 Lipase 90 U/L (23-300) 04/24/18 11:07 - Hospital Course Hospital Course: Patient is admitted for chest pain for 24 hour duration. Patient started experiencing retrosternal chest pain radiating to back associated with occasional diaphoresis and palpitation the last 24 hours with increased frequency and intensity. Patient was evaluated in the Emergency Room 1st set of cardiac enzymes and no negative EKG does not show any ST elevation patient is admitted for further observation. PAST HIST. Patient has history of coronary artery disease with 2 stents in circumflex and RCA and had a stress IV Lexiscan done few months ago we did not reveal any inducible ischemia. Patient has a history of peptic ulcer disease and gastritis and is on medication. Patient has type II diabetes on insulin hypertension and history of colitis. patient had no further chest pain. Cardiac enzymes were negative 3 EKG did not reveal any ST T changes of ischemia. Patient continued to have pain in the left lower abdomen. CT of the abdomen showed slightly enlarged left ovarian cyst. Patient will have a SUPERVISOR TELEVISION [employer] REPAIR follow-up as an outpatient concerning her ovarian cyst. Patient will have IV Lexiscan Myoview as an outpatient. Patient will continue her present medication from home Discharge Plan - Follow Up Plan Condition: STABLE Disposition: HOME/ ROUTINE
--- NOTE | 2018-04-26 14:24 | CP.PCM.PN ---
Subjective - Date & Time of Evaluation Date of Evaluation: 04/26/18 Time of Evaluation: 14:24 - Subjective Subjective: PATIENT WAS ADMITTED FOR CHEST PAIN PALPITATION AAOX3 / WALKING AROUND THE UNIT WITH ASSISTANCE AND NO SIGN OF DISTRESS NOTED DENIES CHEST PAIN OR SOB Objective - Vital Signs/Intake and Output Vital Signs (last 24 hours): Temp Pulse Resp BP Pulse Ox 98.4 F 70 20 126/76 97 04/26/18 07:00 04/26/18 07:00 04/26/18 07:00 04/26/18 07:00 04/26/18 07:00 - Medications Medications: Current Medications Amlodipine Besylate (Norvasc) 10 mg PO DAILY [facility] Last Admin: 04/26/18 09:35 Dose: 10 mg Clopidogrel Bisulfate (Plavix) 75 mg PO DAILY [facility] Last Admin: 04/26/18 09:35 Dose: 75 mg Enoxaparin Sodium (Lovenox) 40 mg SC DAILY [facility] Last Admin: 04/26/18 09:35 Dose: 40 mg Famotidine (Pepcid) 20 mg PO DAILY [facility] Last Admin: 04/26/18 09:35 Dose: 20 mg Insulin Human Regular (Novolin R) 0 unit SC [facility] PRN Reason: Protocol Last Admin: 04/26/18 12:47 Dose: 4 units Labetalol HCl (Trandate) 100 mg PO BID [facility] Last Admin: 04/26/18 09:35 Dose: 100 mg - Labs Labs: 04/24/18 11:07 04/24/18 11:07 PT 12.0 SECONDS (9.7-12.2) 04/24/18 11:58 INR 1.1 04/24/18 11:58 Assessment and Plan - Assessment and Plan (Free Text) Assessment: PATIENT SEEN AND EXAMINED AT THE BEDSIDE TNI WERE NEG ABD AND PLEVIC CT SHOW CYST WHICH RECOMMEND BY PMD TO F/U WITH A FINANCIAL INVESTMENT MANAGER OUT PATIENT LUNG SOUND CLEAR ASHLYN DISCUSS WITH DR MOHAN WHO AGREE TO DC PATIENT HOME TODAY FOLLOW UP WITH DR MOHAN IN NEXT WEEK AT HIS OFFICE ---CALL FOR APPOINTMENT ASK FOR REFERRAL TO FINANCIAL INVESTMENT MANAGER AT YOUR VISIT CONTINUE ALL YOUR HOME MEDICATION ACTIVITY TOLERATED CALL DR MOHAN OR GO TO THE EMERGENCY ROOM IF SYMPTOM RETURN OR WORSENING DISCUSS WITH PATIENT WHO AGREE AND VERBALIZED UNDERSTANDING
[2018-04-26 15:43] VITALS: BP 116/67; PULSE 69; TEMP 98.3; O2SAT 95
--- NOTE | 2018-04-26 21:12 | CARD ---
APPROVED REPORT EKG Measurement Heart [id number] <Conclusion> Normal sinus rhythm Left ventricular hypertrophy with repolarization abnormality Prolonged QT Abnormal ECG
== END 2018-04-26 16:34 | disposition home or self-care (01) ==
LOC: C.ER 09:49 → C.9E 15:49 → C.5S 17:45
PROVIDERS: ADMIT Internal Medicine Cardiovascular Disease; ATTEND Internal Medicine Cardiovascular Disease
DX: R07.89 Other chest pain (principal); Z87.891 Personal history of nicotine dependence; Z79.4 Long term (current) use of insulin; J44.9 Chronic obstructive pulmonary disease, unspecified; I25.110 Atherosclerotic heart disease of native coronary artery with unstable angina pectoris; I10 Essential (primary) hypertension; E78.00 Pure hypercholesterolemia, unspecified; E11.9 Type 2 diabetes mellitus without complications
CPT/HCPCS: 71045; 71275; 74176; 80053; 82948; 83690; 83880; 84484; 85025; 85378; 85610; 93005; 99285; G0378; J1650; Q9966; Q9967

== ENCOUNTER 2018-05-17 09:52 | Inpatient (IN) | payer MEDICARE, MEDICAID ==
[2018-05-17 09:52] VITALS: BMI 29.4
--- NOTE | 2018-05-17 10:48 | C.PDOC ---
History Of Present Illness 87 y/o female with history of DM and HTN presents to ED presents to ED with c/o palpitations, upper and Left lower abdominal pain, nausea, vomiting associated with decreased appetite for 2 days. Patient also complaints of upper back pain radiating to neck and admits to not taking any medication today. Patient reports dysuria and urinary frequency, denies fever, chills, headache, chest pain or any other complaints at this time. Time Seen by Provider: 05/17/18 10:15 Chief Complaint (Nursing): High Blood Pressure History Per: Patient History/Exam Limitations: no limitations Onset/Duration Of Symptoms: Days Current Symptoms Are (Timing): Still Present Past Medical History Reviewed: Historical Data, Nursing Documentation, Vital Signs Vital Signs: Last Vital Signs Temp 97.8 F 05/22/18 15:00 Pulse 70 05/22/18 16:27 Resp 20 05/22/18 15:00 BP 132/69 05/22/18 15:00 Pulse Ox 96 05/22/18 15:00 - Medical History PMH: CAD, COPD, Gall Bladder Disease, HTN, Hypercholesterolemia Surgical History: Cholecystectomy, Coronary Stent, - [facility] Procedures DILATION OF 1 COR ART WITH 2 DRUG-ELUT, PERC APPROACH (01/17/17) DILATION OF 1 COR ART WITH DRUG-ELUT INTRA, PERC APPROACH (01/17/17) EXCISION OF STOMACH, ENDO, DIAGN (05/18/18) FLUOROSCOPY OF LEFT HEART USING LOW OSMOLAR CONTRAST (01/17/17) MEASURE OF CARDIAC SAMPL & PRESSURE, L HEART, PERC APPROACH (01/17/17) OTHER ENDOSCOPY OF SM INTEST (01/02/14) RADIOGRAPHY OF GALLBLADDER & BILE DUCT USING L OSM CONTRAST (11/21/15) RESECTION OF GALLBLADDER, PERCUTANEOUS ENDOSCOPIC APPROACH (11/21/15) ULTRASONOGRAPHY OF GALLBLADDER AND BILE DUCTS (11/19/15) Family History: States: No Known Family Hx - Social History Hx Tobacco Use: No Hx Alcohol Use: No Hx Substance Use: No - Immunization History Hx Tetanus Toxoid Vaccination: Yes Hx Influenza Vaccination: Yes Hx Pneumococcal Vaccination: Yes Review Of Systems Constitutional: Negative for: Fever, Chills Cardiovascular: Positive for: Palpitations. Negative for: Chest Pain Respiratory: Negative for: Shortness of Breath Gastrointestinal: Positive for: Nausea, Vomiting, Abdominal Pain Genitourinary: Positive for: Dysuria, Frequency. Negative for: Hematuria Musculoskeletal: Positive for: Neck Pain, Back Pain Skin: Negative for: Rash Physical Exam - Physical Exam Appears: Non-toxic, No Acute Distress Skin: Warm, Dry, No Rash Head: Atraumatic, Normacephalic Eye(s): bilateral: Normal Inspection Oral Mucosa: Moist Neck: Other (right trapezius tenderness) Cardiovascular: Rhythm Regular Respiratory: Normal Breath Sounds, No Rales, No Rhonchi, No Wheezing Gastrointestinal/Abdominal: Soft, Tenderness (LLQ and LUQ), No Guarding, No Rebound Back: No CVA Tenderness Extremity: Normal ROM, No Pedal Edema, Capillary Refill (<2 seconds), No Swelling Neurological/Psych: Oriented x3, Normal Speech, Normal Cognition Gait: With Assistance (cane) ED Course And Treatment - Laboratory Results Result Diagrams: 05/21/18 06:08 05/21/18 06:08 ECG: Interpreted By Me, Viewed By Me ECG Rhythm: Sinus Rhythm ECG Interpretation: No Changes From Prior (04/24/18) Rate From EC O2 Sat by Pulse Oximetry: 96 (RA) Pulse Ox Interpretation: Normal Medical Decision Making Medical Decision Making: Plan: EKG, CXR, Blood work and UA ordered @1138: Paged Dr. Castillo [phone]- Dr. Castillo returned page instructed to call him with results. 1525: Paged Dr. Castillo [phone] Castillo, will admot for colitis, get consult form Dr Cross. Disposition Discussed With : Misty Castillo Doctor Will See Patient In The: Hospital - Disposition Disposition: HOSPITALIZED Disposition Time: 17:20 Condition: STABLE - Clinical Impression Clinical Impression: Colitis, Worsening renal function
[2018-05-17 11:04] LABS: BASO # 0.1 K/uL (0.0-0.2); EOS # 0.3 K/uL (0.0-0.7); EOS % 2.1 % (0.0-4.0); LYMPH # 1.3 K/uL (1.0-4.3); LYMPH % 10.3 % (20.0-40.0); MEAN CELL VOLUME 81.3 fL (81.0-99.0); MEAN CORPUSCULAR HEMOGLOBIN 27.6 pg (27.0-31.0); MEAN CORPUSCULAR HGB CONC 33.9 g/dL (33.0-37.0); MEAN PLATELET VOLUME 10.3 fL (7.2-11.7); MONO # 0.6 K/uL (0.0-0.8); MONO % 4.7 % (0.0-10.0); NEUT # 10.1 K/uL (1.8-7.0); NEUT % 81.9 % (50.0-75.0); NRBC % 0.2 % (0.0-2.0); RBC 5.07 Mil/uL (3.80-5.20); RED CELL DISTRIBUTION WIDTH 14.5 % (11.5-14.5); WHITE BLOOD COUNT 12.3 K/uL (4.8-10.8)
--- NOTE | 2018-05-17 11:21 | RAD ---
Date of service: 05/17/2018 PROCEDURE: CHEST RADIOGRAPH, 1 VIEW HISTORY: chest pain COMPARISON: 04/24/2018 FINDINGS: LUNGS: Clear. PLEURA: No pneumothorax or pleural fluid seen. CARDIOVASCULAR: Mild cardiomegaly. Tortuous ectatic and partly calcified thoracic aorta-similar OSSEOUS STRUCTURES: Bilateral shoulder arthrosis VISUALIZED UPPER ABDOMEN: Normal. OTHER FINDINGS: None. IMPRESSION: Cardiomegaly, tortuous ectatic partly calcified thoracic aorta-unchanged. No interval pulmonary pathology seen
[2018-05-17 11:28] LABS: ALB/GLOB RATIO 1.2 (1.0-2.1); ALBUMIN 4.2 g/dL (3.5-5.0); ALT/SGPT 21 U/L (9-52); AST/SGOT 24 U/L (14-36); BLOOD UREA NITROGEN 17 mg/dL (7-17); CALCIUM 9.2 mg/dl (8.6-10.4); GFR AFRICAN-AMERICAN 34; GFR NON-AFRICAN AMERICAN 28
[2018-05-17 11:33] LABS: SQUAMOUS EPITHIAL 1 /hpf (0-5); URINE BILIRUBIN NEGATIVE (NEGATIVE); URINE BLOOD NEGATIVE (NEGATIVE); URINE CLARITY Clear (Clear); URINE COLOR Straw (YELLOW); URINE GLUCOSE (UA) NORMAL (Normal); URINE LEUKOCYTE ESTERASE NEG Leu/uL (Negative); URINE PROTEIN NEGATIVE (NEGATIVE); URINE UROBILINOGEN NORMAL mg/dL (0.2-1.0)
[2018-05-17] MEDS ORDERED: Iohexol 240 (50 ml) PO STA (11:56)
[2018-05-17] MEDS ORDERED: Iohexol 240 (50 ml) ONE (12:21)
--- NOTE | 2018-05-17 14:51 | CT ---
Date of service: 05/17/2018 PROCEDURE: CT Abdomen and Pelvis with contrast HISTORY: Abdominal pain COMPARISON: 04/25/2018. TECHNIQUE: CT scan of the abdomen and pelvis was performed without administration of intravenous contrast. Oral contrast was administered. Coronal and sagittal reformatted images were obtained. Radiation dose: Total exam DLP = 913.60 mGy-cm. This CT exam was performed using one or more of the following dose reduction techniques: Automated exposure control, adjustment of the mA and/or kV according to patient size, and/or use of iterative reconstruction technique. FINDINGS: LOWER THORAX: There is dependent atelectasis in the visualized right lung. The left lung base is clear. There is persistent cardiomegaly and advanced atherosclerotic coronary artery calcifications. LIVER: Normal in size. There are stable simple cysts in the level. No ductal dilatation. GALLBLADDER AND BILE DUCTS: Surgically absent. PANCREAS: Normal in size. No gross lesion or ductal dilatation. SPLEEN: Normal in size. ADRENALS: No discrete nodule. No mass. KIDNEYS AND URETERS: Normal in size without nephrolithiasis. There is a small exophytic simple cyst in the right lower pole. No hydronephrosis. VASCULATURE: The suprarenal aorta is ectatic. There are advanced atherosclerotic calcifications in the infrarenal aorta and common iliac arteries. No aortic aneurysm. There is stable appearance of a partially calcified left superficial femoral artery stent. BOWEL: The small bowel loops are normal in caliber. There is scattered colonic diverticulosis without CT evidence for acute diverticulitis. There is apparent mild mural thickening in the ascending, transverse and proximal descending colon. The distal descending colon and sigmoid colon are collapsed. No bowel dilatation or obstruction. A rectal tube remains in place. APPENDIX: Normal appendix. PERITONEUM: Free fluid. No free air. LYMPH NODES: No enlarged lymph nodes. BLADDER: Unremarkable. REPRODUCTIVE: The uterus is normal in size and stable in appearance. There is a stable subserosal fibroid in the anterior wall of the lower uterine segment There is a 3.0 cm simple cyst in the left ovary. BONES: No acute fracture. OTHER FINDINGS: There is a small sliding hiatal hernia. IMPRESSION: Scattered colonic diverticulosis without CT evidence for acute diverticulitis. Apparent mild mural thickening in the ascending, transverse and proximal descending colon could represent nonspecific infectious/ inflammatory colitis in the appropriate clinical setting. No bowel dilatation or obstruction. Additional stable findings as described above.
[2018-05-17] MEDS ORDERED: Ciprofloxacin 200mg/100ml D5W 100 ML IVPB STA (15:15)
[2018-05-17] MEDS ORDERED: metroNIDAZOLE IV 500 mg/100 ml 500 MG/100 ML BAG IVPB STA (15:17)
[2018-05-17] MEDS ORDERED: metroNIDAZOLE IV 500 mg/100 ml 500 MG/100 ML BAG ONE (15:29)
--- NOTE | 2018-05-17 17:31 | CP.PCM.CON ---
<Manav Diaz - Last Filed: 05/17/18 18:19> History of Present Illness - History of Present Illness History of Present Illness: GI Fellow PGY4, consult note. Mary Krishnan is a pleasant 87yo independent Malay speaking only female presenting with abdominal pain, elevated BP and palpitations. Patient complains of worsening abdominal pain for the last two-three days. +early satiety x2 weeks. The pain is concentrated at the LLQ and is a 5/10 dull pain. She has been having "black" stool recently as well. Urinating makes the pain better. She denies fever, nausea, vomiting. PMHx - CAD, HTN, DM PSHx - , cardiac stents, lap dominique, EGD 2016 - gastritis, intestinal metaplasia. FMHx - None SocHx - Previous heavy smoker. denies alcohol. lives at home. 12pt ROS completed and negative except for above. Past Patient History - Infectious Disease Hx of Infectious Diseases: None - Past Medical History & Family History Past Medical History?: Yes - Past Social History Smoking Status: Former Smoker - CARDIAC Hx Hypercholesterolemia: Yes Hx Hypertension: Yes - PULMONARY Hx Chronic Obstructive Pulmonary Disease (COPD): Yes - NEUROLOGICAL Hx Neurological Disorder: No - HEENT Hx HEENT Problems: Yes Hx Cataracts: Yes (BILAT.) Other/Comment: Difficult hearing - RENAL Hx Chronic Kidney Disease: No - ENDOCRINE/METABOLIC Hx Endocrine Disorders: Yes Hx Diabetes Mellitus Type 2: Yes - HEMATOLOGICAL/ONCOLOGICAL Hx Blood Disorders: No - INTEGUMENTARY Hx Dermatological Problems: No - MUSCULOSKELETAL/RHEUMATOLOGICAL Hx Musculoskeletal Disorders: Yes Hx Degenerative Joint Disease: Yes Hx Falls: Yes - GASTROINTESTINAL Hx Gall Bladder Disease: Yes - GENITOURINARY/GYNECOLOGICAL Hx Genitourinary Disorders: No Other/Comment: TUBAL LIGATION,CEASEREAN X 2 - PSYCHIATRIC Hx Substance Use: No - SURGICAL HISTORY Hx Cholecystectomy: Yes Hx Coronary Stent: Yes - ANESTHESIA Hx Anesthesia: Yes Hx Anesthesia Reactions: No Hx Malignant Hyperthermia: No Meds Allergies/Adverse Reactions: Allergies Allergy/AdvReac Type Severity Reaction Status Date / Time cephalexin Allergy Intermediate RASH Verified 04/24/18 09:55 Penicillins Allergy Intermediate RASH Verified 04/24/18 09:55 lactose Allergy Mild ABDOMINAL Verified 04/24/18 09:55 DISCOMFORT Physical Exam - Constitutional Appears: Non-toxic, No Acute Distress - Head Exam Head Exam: ATRAUMATIC, NORMAL INSPECTION - Eye Exam Eye Exam: EOMI, Normal appearance - ENT Exam ENT Exam: Mucous Membranes Moist, Normal Exam - Respiratory Exam Respiratory Exam: Clear to Auscultation Bilateral, NORMAL BREATHING PATTERN. absent: Wheezes - Cardiovascular Exam Cardiovascular Exam: REGULAR RHYTHM, +S1, +S2 - GI/Abdominal Exam GI & Abdominal Exam: Hypoactive Bowel Sounds, Soft, Tenderness. absent: Distended, Guarding, Organomegaly, Rebound - Rectal Exam Rectal Exam: NORMAL INSPECTION Additional comments: Unable to palpate any mass or stool. No obvious bleeding. - Extremities Exam Extremities exam: Positive for: normal inspection - Neurological Exam Neurological exam: Alert, CN II-XII Intact, Oriented x3 - Psychiatric Exam Psychiatric exam: Normal Affect, Normal Mood - Skin Skin Exam: Dry, Normal Color Results - Vital Signs Recent Vital Signs: Last Vital Signs Temp 98.4 F 05/17/18 16:41 Pulse 72 05/17/18 16:41 Resp 16 05/17/18 16:41 BP 166/60 H 05/17/18 16:41 Pulse Ox 96 05/17/18 16:41 - Labs Result Diagrams: 05/17/18 10:56 05/17/18 10:56 Labs: Laboratory Results - last 24 hr 05/17/18 05/17/18 05/17/18 10:34 10:56 10:56 WBC 12.3 H RBC 5.07 Hgb 14.0 Hct 41.2 MCV 81.3 MCH 27.6 MCHC 33.9 RDW 14.5 Plt Count 233 MPV 10.3 Neut % (Auto) 81.9 H Lymph % (Auto) 10.3 L [place] % (Auto) 4.7 Eos % (Auto) 2.1 Baso % (Auto) 1.0 Neut # (Auto) 10.1 H Lymph # (Auto) 1.3 [place] # (Auto) 0.6 Eos # (Auto) 0.3 Baso # (Auto) 0.1 Sodium 145 Potassium 3.6 Chloride 104 Carbon Dioxide 28 Anion Gap 17 BUN 17 Creatinine 1.7 H Est GFR ( Amer) 34 Est GFR (Non-Af Amer) 28 POC Glucose (mg/dL) 118 H Random Glucose 127 H Calcium 9.2 Total Bilirubin 0.7 AST 24 ALT 21 Alkaline Phosphatase 110 Troponin I < 0.0120 Total Protein 7.5 Albumin 4.2 Globulin 3.4 Albumin/Globulin Ratio 1.2 Urine Color Urine Clarity Urine pH Ur Specific [place] Urine Protein Urine Glucose (UA) Urine Ketones Urine Blood Urine Nitrate Urine Bilirubin Urine Urobilinogen Ur Leukocyte Esterase Urine WBC (Auto) Urine RBC (Auto) Ur Squamous Epith Cells 05/17/18 11:17 WBC RBC Hgb Hct MCV MCH MCHC RDW Plt Count MPV Neut % (Auto) Lymph % (Auto) [place] % (Auto) Eos % (Auto) Baso % (Auto) Neut # (Auto) Lymph # (Auto) [place] # (Auto) Eos # (Auto) Baso # (Auto) Sodium Potassium Chloride Carbon Dioxide Anion Gap BUN Creatinine Est GFR ( Amer) Est GFR (Non-Af Amer) POC Glucose (mg/dL) Random Glucose Calcium Total Bilirubin AST ALT Alkaline Phosphatase Troponin I Total Protein Albumin Globulin Albumin/Globulin Ratio Urine Color Straw Urine Clarity Clear Urine pH 6.0 Ur Specific [place] 1.005 Urine Protein Negative Urine Glucose (UA) Normal Urine Ketones Negative Urine Blood Negative Urine Nitrate Negative Urine Bilirubin Negative Urine Urobilinogen Normal Ur Leukocyte Esterase Neg Urine WBC (Auto) 2 Urine RBC (Auto) < 1 Ur Squamous Epith Cells 1 Assessment & Plan - Assessment and Plan (Free Text) Assessment: #Abdominal pain - LLQ,hx of diverticulosis. Possible mild or early diverticulitis. #Mild diffuse colitis #Gastritis #Constipation #EVIE #CAD s/p stents #DM #HTN Plan: -Continue supportive care -CT abd/pelv findings noted for mild colitis and diverticulosis -Concern for infectious colitis, diverticulitis -Continue flagyl, ciprofloxacin -Clear liquid diet -Stool studies -Follow EVIE, continue fluids per primary -She will need colonoscopy as an outpt to follow up on colitis findings -No planned procedures - Date & Time Date: 05/17/18 Time: 18:21 <Alfonso Cross - Last Filed: 05/17/18 18:36> Results - Vital Signs Recent Vital Signs: Last Vital Signs Temp 98.4 F 05/17/18 16:41 Pulse 72 05/17/18 16:41 Resp 16 05/17/18 16:41 BP 166/60 H 05/17/18 16:41 Pulse Ox 96 05/17/18 16:41 - Labs Result Diagrams: 05/17/18 10:56 05/17/18 10:56 Labs: Laboratory Results - last 24 hr 05/17/18 05/17/18 05/17/18 10:34 10:56 10:56 WBC 12.3 H RBC 5.07 Hgb 14.0 Hct 41.2 MCV 81.3 MCH 27.6 MCHC 33.9 RDW 14.5 Plt Count 233 MPV 10.3 Neut % (Auto) 81.9 H Lymph % (Auto) 10.3 L [place] % (Auto) 4.7 Eos % (Auto) 2.1 Baso % (Auto) 1.0 Neut # (Auto) 10.1 H Lymph # (Auto) 1.3 [place] # (Auto) 0.6 Eos # (Auto) 0.3 Baso # (Auto) 0.1 Sodium 145 Potassium 3.6 Chloride 104 Carbon Dioxide 28 Anion Gap 17 BUN 17 Creatinine 1.7 H Est GFR ( Amer) 34 Est GFR (Non-Af Amer) 28 POC Glucose (mg/dL) 118 H Random Glucose 127 H Calcium 9.2 Total Bilirubin 0.7 AST 24 ALT 21 Alkaline Phosphatase 110 Troponin I < 0.0120 Total Protein 7.5 Albumin 4.2 Globulin 3.4 Albumin/Globulin Ratio 1.2 Urine Color Urine Clarity Urine pH Ur Specific [place] Urine Protein Urine Glucose (UA) Urine Ketones Urine Blood Urine Nitrate Urine Bilirubin Urine Urobilinogen Ur Leukocyte Esterase Urine WBC (Auto) Urine RBC (Auto) Ur Squamous Epith Cells 05/17/18 11:17 WBC RBC Hgb Hct MCV MCH MCHC RDW Plt Count MPV Neut % (Auto) Lymph % (Auto) [place] % (Auto) Eos % (Auto) Baso % (Auto) Neut # (Auto) Lymph # (Auto) [place] # (Auto) Eos # (Auto) Baso # (Auto) Sodium Potassium Chloride Carbon Dioxide Anion Gap BUN Creatinine Est GFR ( Amer) Est GFR (Non-Af Amer) POC Glucose (mg/dL) Random Glucose Calcium Total Bilirubin AST ALT Alkaline Phosphatase Troponin I Total Protein Albumin Globulin Albumin/Globulin Ratio Urine Color Straw Urine Clarity Clear Urine pH 6.0 Ur Specific [place] 1.005 Urine Protein Negative Urine Glucose (UA) Normal Urine Ketones Negative Urine Blood Negative Urine Nitrate Negative Urine Bilirubin Negative Urine Urobilinogen Normal Ur Leukocyte Esterase Neg Urine WBC (Auto) 2 Urine RBC (Auto) < 1 Ur Squamous Epith Cells 1 Attending/Attestation - Attestation I have personally seen and examined this patient.: Yes I have fully participated in the care of the patient.: Yes I have reviewed all pertinent clinical information: Yes Notes (Text): 05/17/18 18:30 I have seen and examined patient with GI fellow. Agree with above documentation with the following additions. In brief, this is an 87 year old female with history of DM, HTN, obesity, CAD who presents to hospital with complaint of abdominal pain and palpitations which began 3 days ago. She describes intermittent sharp, 7/10 intensity LLQ abdominal pain that has been present for three days, initially associated with one episode of non-bloody diarrhea. She also notes loss of appetite over the past 2 weeks but denies nausea, vomiting, fever/chills, weight loss, rectal bleeding, or change in bowel habits. She denies recent travel, sick contacts, or antibiotic use. She had a colonoscopy over 5 years ago which was normal as per patient and an EGD in 2016 which showed gastritis with intestinal metaplasia. Review of vitals from today shows elevated BP. DM / HTN Obesity CAD Abdominal pain - CT imaging reviewed by me showing diverticulosis and segmental colitis Acute renal insufficiency - Clear liquid diet as tolerated - Continue with antibiotic therapy - Obtain stool studies (culture, O/P, c-difficile) - Continue with supportive care, IVF hydration, monitor creatinine - Patient would ultimately benefit from outpatient colonoscopy 6-8 weeks following resolution of acute symptoms. Will continue to monitor clinical course.
--- NOTE | 2018-05-17 19:43 | CP.PCM.HP ---
History of Present Illness - History of Present Illness History of Present Illness: Patient is admitted for abdominal pain left lower quadrant. Last few days patient been complaining of left lower quadrant pain radiating diffusely to rest of the abdomen sedated with constipation increased gas and belching. Patient is also complaining of some atypical epigastric and retrosternal chest discomfort. Patient was evaluated in the emergency room Can of the abdomen showed colitis in the descending colon. . Present on Admission - Present on Admission Any Indicators Present on Admission: No Review of Systems - Review of Systems All systems: reviewed and no additional remarkable complaints except - Constitutional Constitutional: As Per HPI, Anorexia, Chills, Daytime Sleepiness, Excessive Sweating, Fatigue, Fever, Frequent Falls, Headache, Increased Appetite, Lethargy , Malaise, Night Sweats, Snoring, Sleep Apnea, Weight Gain, Weight Loss, Weakness, Other - EENT Eyes: absent: As Per HPI, Blind Spots, Blurred Vision, Change in Vision, Decreased Night Vision, Diplopia, Discharge, Dry Eye, Exophthalmos, Floaters, Irritation, Itchy Eyes, Loss of Peripheral Vision, Pain, Photophobia, Requires Corrective Lenses, Sees Flashes, Spots in Vision, Tunnel Vision, Other Visual Disturbances, Loss of Vision, Other Ears: absent: As Per HPI, Decreased Hearing, Ear Discharge, Ear Pain, Tinnitus, Abnormal Hearing, Disequilibrium, Dizziness, Other Nose/Mouth/Throat: absent: As Per HPI, Epistaxis, Nasal Congestion, Nasal Discharge, Nasal Obstruction, Nasal Trauma, Nose Pain, Post Nasal Drip, Sinus Pain, Sinus Pressure, Bleeding Gums, Change in Voice, Dental Pain, Dry Mouth, Dysphagia, Halitosis, Hoarsness, Lip Swelling, Mouth Lesions, Mouth Pain, Odynophagia, Sore Throat, Throat Swelling, Tongue Swelling, Facial Pain, Neck Pain, Neck Mass, Other - Cardiovascular Cardiovascular: Chest Pain, Palpitations - Respiratory Respiratory: absent: As Per HPI, Cough, Dyspnea, Hemoptysis, Dyspnea on Exertion , Wheezing, Snoring, Stridor, Pain on Inspiration, Chest Congestion, Excessive Mucous Production, Change in Mucous Color, Pain with Coughing, Other - Gastrointestinal Gastrointestinal: Abdominal Pain, Belching, Bloating, Constipation, Dyspepsia. absent: Diarrhea, Hematemesis, Hematochezia, Melena - Genitourinary Genitourinary: absent: As Per HPI, Change in Urinary Stream, Difficulty Urinating, Dysuria, Flank Pain, Hematuria, Pyuria, Nocturia, Urinary Incontinence, Urinary Frequency, Urinary Hesitance, Urinary Urgency, Voiding Freq/Small Amts, Freq UTI, Hx Renal/Bladder Calculi, Hx /Renal Surgery, Bladder Distension, Other - Reproductive: Female Reproductive:Female: absent: As Per HPI, Amenorrhea, Amenorrhea/ Control, Currently Menstual, Cycle <21 Days, Cycle >35 Days, Cycle Variable, Menses 1-7 Days, Menses >/= 8 Days, Menses Variable, Cycle > 4 Weeks Between, No Menses for 6 Months, Heavy Menses, Light Menses, Normal Menses, Spotting Between Cycles , S/P Hysterectomy, Menopausal, Post Menopausal, Premenarche, Abnormal Vaginal Bleeding, Dysmenorrhea, Dyspareunia, Genital Lesions, Genital Pruritis, Pelvic Pain, Prolapse Symptoms, Sexual Dysfunction, Vaginal Discharge, Vaginal Dryness , Vaginal Odor, Vaginal Pruritis, Other - Neurological Neurological: absent: As Per HPI, Abnormal Gait, Abnormal Hearing, Abnormal Movements, Abnormal Speech, Behavioral Changes, Burning Sensations, Confusion, Convulsions, Disequilibrium, Dizziness, Numbness, Focal Weakness, Frequent Falls , Headaches, Lack of Coordination, Loss of Vision, Memory Loss, Paresthesias, Radicular Pain, Restless Legs, Sensory Deficit, Syncope, Tingling, Tremor, Vertigo, Weakness, Other Visual Disturbances, Other - Endocrine Endocrine: absent: As Per HPI, Change in Body Appearance, Change in Libido, Cold Intolorance, Deepening of Voice, Excessive Sweating, Fatigue, Flushing, Heat Intolorance, Increase in Ring/Shoe/Hat Size, Palpitations, Polydipsia, Polyphagia, Polyuria, Other Past Patient History - Infectious Disease Hx of Infectious Diseases: None - Past Medical History & Family History Past Medical History?: Yes - Past Social History Smoking Status: Former Smoker - CARDIAC Hx Hypercholesterolemia: Yes Hx Hypertension: Yes - PULMONARY Hx Chronic Obstructive Pulmonary Disease (COPD): Yes - NEUROLOGICAL Hx Neurological Disorder: No - HEENT Hx HEENT Problems: Yes Hx Cataracts: Yes (BILAT.) Other/Comment: Difficult hearing - RENAL Hx Chronic Kidney Disease: No - ENDOCRINE/METABOLIC Hx Endocrine Disorders: Yes Hx Diabetes Mellitus Type 2: Yes - HEMATOLOGICAL/ONCOLOGICAL Hx Blood Disorders: No - INTEGUMENTARY Hx Dermatological Problems: No - MUSCULOSKELETAL/RHEUMATOLOGICAL Hx Musculoskeletal Disorders: Yes Hx Degenerative Joint Disease: Yes Hx Falls: Yes - GASTROINTESTINAL Hx Gall Bladder Disease: Yes - GENITOURINARY/GYNECOLOGICAL Hx Genitourinary Disorders: No Other/Comment: TUBAL LIGATION,CEASEREAN X 2 - PSYCHIATRIC Hx Substance Use: No - SURGICAL HISTORY Hx Cholecystectomy: Yes Hx Coronary Stent: Yes - ANESTHESIA Hx Anesthesia: Yes Hx Anesthesia Reactions: No Hx Malignant Hyperthermia: No Meds Allergies/Adverse Reactions: Allergies Allergy/AdvReac Type Severity Reaction Status Date / Time cephalexin Allergy Intermediate RASH Verified 04/24/18 09:55 Penicillins Allergy Intermediate RASH Verified 04/24/18 09:55 lactose Allergy Mild ABDOMINAL Verified 04/24/18 09:55 DISCOMFORT Physical Exam - Constitutional Appears: Well - Head Exam Head Exam: ATRAUMATIC - Eye Exam Eye Exam: EOMI, Normal appearance - ENT Exam ENT Exam: Mucous Membranes Moist - Neck Exam Neck exam: Positive for: Full Rom. Negative for: Lymphadenopathy - Respiratory Exam Respiratory Exam: NORMAL BREATHING PATTERN - Cardiovascular Exam Cardiovascular Exam: REGULAR RHYTHM, +S1, +S2 - GI/Abdominal Exam GI & Abdominal Exam: Soft, Tenderness. absent: Mass - Rectal Exam Rectal Exam: Deferred - Extremities Exam Extremities exam: Positive for: full ROM. Negative for: calf tenderness, pedal edema - Back Exam Back exam: absent: CVA tenderness (L), CVA tenderness (R) - Psychiatric Exam Psychiatric exam: Anxious Results - Vital Signs Recent Vital Signs: Last Vital Signs Temp 99 F 05/17/18 18:34 Pulse 70 05/17/18 18:34 Resp 20 05/17/18 18:34 BP 179/69 H 05/17/18 18:34 Pulse Ox 96 05/17/18 18:34 - Labs Result Diagrams: 05/17/18 10:56 05/17/18 10:56 Labs: Laboratory Results - last 24 hr 05/17/18 05/17/18 05/17/18 10:34 10:56 10:56 WBC 12.3 H RBC 5.07 Hgb 14.0 Hct 41.2 MCV 81.3 MCH 27.6 MCHC 33.9 RDW 14.5 Plt Count 233 MPV 10.3 Neut % (Auto) 81.9 H Lymph % (Auto) 10.3 L [place] % (Auto) 4.7 Eos % (Auto) 2.1 Baso % (Auto) 1.0 Neut # (Auto) 10.1 H Lymph # (Auto) 1.3 [place] # (Auto) 0.6 Eos # (Auto) 0.3 Baso # (Auto) 0.1 Sodium 145 Potassium 3.6 Chloride 104 Carbon Dioxide 28 Anion Gap 17 BUN 17 Creatinine 1.7 H Est GFR ( Amer) 34 Est GFR (Non-Af Amer) 28 POC Glucose (mg/dL) 118 H Random Glucose 127 H Calcium 9.2 Total Bilirubin 0.7 AST 24 ALT 21 Alkaline Phosphatase 110 Troponin I < 0.0120 Total Protein 7.5 Albumin 4.2 Globulin 3.4 Albumin/Globulin Ratio 1.2 Urine Color Urine Clarity Urine pH Ur Specific [place] Urine Protein Urine Glucose (UA) Urine Ketones Urine Blood Urine Nitrate Urine Bilirubin Urine Urobilinogen Ur Leukocyte Esterase Urine WBC (Auto) Urine RBC (Auto) Ur Squamous Epith Cells 05/17/18 11:17 WBC RBC Hgb Hct MCV MCH MCHC RDW Plt Count MPV Neut % (Auto) Lymph % (Auto) [place] % (Auto) Eos % (Auto) Baso % (Auto) Neut # (Auto) Lymph # (Auto) [place] # (Auto) Eos # (Auto) Baso # (Auto) Sodium Potassium Chloride Carbon Dioxide Anion Gap BUN Creatinine Est GFR ( Amer) Est GFR (Non-Af Amer) POC Glucose (mg/dL) Random Glucose Calcium Total Bilirubin AST ALT Alkaline Phosphatase Troponin I Total Protein Albumin Globulin Albumin/Globulin Ratio Urine Color Straw Urine Clarity Clear Urine pH 6.0 Ur Specific [place] 1.005 Urine Protein Negative Urine Glucose (UA) Normal Urine Ketones Negative Urine Blood Negative Urine Nitrate Negative Urine Bilirubin Negative Urine Urobilinogen Normal Ur Leukocyte Esterase Neg Urine WBC (Auto) 2 Urine RBC (Auto) < 1 Ur Squamous Epith Cells 1 Assessment & Plan (1) Colitis Status: Acute (2) CAD (coronary artery disease), [place] coronary artery Status: Acute (3) GERD with esophagitis Status: Acute (4) Diabetes 1.5, managed as type 2 Status: Chronic
[2018-05-17] MEDS ORDERED: Dextrose 50% SYRINGE Inj (50 ml) IV PRN (19:52)
[2018-05-17] MEDS ORDERED: Glucagon Recombinant 1 mg Inj IM PRN (19:52)
[2018-05-17 21:33] LABS: CK-MB 0.67 ng/mL (0.0-3.38)
[2018-05-17] MEDS: (Novolin R) Insulin Human Regular 100 units/ml vial SC SCH (21:57)
[2018-05-18] MEDS: metroNIDAZOLE IV 500 mg/100 ml 500 MG/100 ML BAG IVPB SCH ×3 (01:55→17:58)
[2018-05-18 06:48] LABS: BASO # 0.1 K/uL (0.0-0.2); BASO % 1.2 % (0.0-2.0); EOS # 0.2 K/uL (0.0-0.7); EOS % 2.2 % (0.0-4.0); HEMOGLOBIN 13.5 g/dL (11.0-16.0); LYMPH # 1.3 K/uL (1.0-4.3); LYMPH % 12.9 % (20.0-40.0); MEAN CELL VOLUME 80.7 fL (81.0-99.0); MEAN CORPUSCULAR HEMOGLOBIN 27.9 pg (27.0-31.0); MEAN CORPUSCULAR HGB CONC 34.5 g/dL (33.0-37.0); MEAN PLATELET VOLUME 10.2 fL (7.2-11.7); MONO # 0.5 K/uL (0.0-0.8); MONO % 5.4 % (0.0-10.0); NEUT # 7.7 K/uL (1.8-7.0); NEUT % 78.3 % (50.0-75.0); RBC 4.84 Mil/uL (3.80-5.20); RED CELL DISTRIBUTION WIDTH 14.6 % (11.5-14.5); WHITE BLOOD COUNT 9.9 K/uL (4.8-10.8)
[2018-05-18] MEDS: (Novolin R) Insulin Human Regular 100 units/ml vial SC SCH ×4 (08:11→21:51)
[2018-05-18 08:32] LABS: CK-MB 0.72 ng/mL (0.0-3.38)
[2018-05-18 08:35] LABS: ALB/GLOB RATIO 1.2 (1.0-2.1); ALBUMIN 3.8 g/dL (3.5-5.0); ALT/SGPT 20 U/L (9-52); AST/SGOT 26 U/L (14-36); BLOOD UREA NITROGEN 18 mg/dL (7-17); CALCIUM 8.8 mg/dl (8.6-10.4); GFR AFRICAN-AMERICAN 37; GFR NON-AFRICAN AMERICAN 30
--- NOTE | 2018-05-18 08:55 | CP.PCM.PN ---
<Manav Diaz - Last Filed: 05/18/18 11:06> Subjective - Date & Time of Evaluation Date of Evaluation: 05/18/18 Time of Evaluation: 08:53 - Subjective Subjective: GI Fellow PGY4, Progress note Patient had no acute overnight events. abdominal pain is improving. She complains of epigastric buring and acid reflux. 12pt ROS negative except for above. Objective - Vital Signs/Intake and Output Vital Signs (last 24 hours): Temp Pulse Resp BP Pulse Ox 98.2 F 61 20 150/76 95 05/18/18 08:44 05/18/18 08:44 05/18/18 08:44 05/18/18 08:44 05/18/18 08:44 Intake and Output: 05/18/18 05/18/18 06:59 18:59 Intake Total 200 Balance 200 - Medications Medications: Current Medications Amlodipine Besylate (Norvasc) 10 mg PO DAILY [facility] Aspirin (Aspirin) 325 mg PO DAILY [facility] Clopidogrel Bisulfate (Plavix) 75 mg PO DAILY [facility] Dextrose (Dextrose 50% Inj) 0 ml IV STAT PRN; Protocol PRN Reason: Hypoglycemia Protocol Dextrose (Glutose 15) 0 gm PO ONCE PRN; Protocol PRN Reason: Hypoglycemia Protocol Enalapril Maleate (Vasotec) 20 mg PO DAILY [facility] Ergocalciferol (Drisdol 50,000 Intl Units Cap) 1 cap PO QWK [facility] Famotidine (Pepcid) 40 mg PO DAILY [facility] Glucagon (Glucagen Diagnostic Kit) 0 mg IM STAT PRN; Protocol PRN Reason: Hypoglycemia Protocol Heparin Sodium (Porcine) (Heparin) 5,000 units SC Q12 [facility] Last Admin: 05/17/18 22:24 Dose: 5,000 units Home Med (Linagliptin [Tradjenta]) 5 mg PO DAILY [facility] Ciprofloxacin (Cipro 400mg/200ml Dsw) 400 mg in 200 mls @ 133 mls/hr IVPB DAILY [facility] PRN Reason: Protocol Metronidazole (Flagyl) 500 mg in 100 mls @ 100 mls/hr IVPB Q8H [facility] PRN Reason: Protocol Last Admin: 05/18/18 01:55 Dose: 100 mls/hr Dextrose (Dextrose 5% In Water 1000 Ml) 1,000 mls @ 0 mls/hr IV .Q0M PRN; Protocol; Per Protocol PRN Reason: Hypoglycemia Protocol Insulin Human Regular (Novolin R) 0 unit SC ACHS [facility] PRN Reason: Protocol Last Admin: 05/18/18 08:11 Dose: 2 units Labetalol HCl (Trandate) 100 mg PO BID [facility] Nitroglycerin (Nitrostat Sl Tab) 0.4 mg SL Q5M PRN PRN Reason: CHEST PAIN Pantoprazole Sodium (Protonix Ec Tab) 40 mg PO DAILY [facility] - Labs Labs: 05/18/18 06:36 05/18/18 06:36 - Constitutional Appears: Non-toxic, No Acute Distress - Head Exam Head Exam: ATRAUMATIC - Eye Exam Eye Exam: Normal appearance - ENT Exam ENT Exam: Mucous Membranes Moist - Respiratory Exam Respiratory Exam: Clear to Ausculation Bilateral, NORMAL BREATHING PATTERN. absent: Wheezes - Cardiovascular Exam Cardiovascular Exam: REGULAR RHYTHM, +S1, +S2 - GI/Abdominal Exam GI & Abdominal Exam: Soft, Hypoactive Bowel Sounds. absent: Tenderness - Extremities Exam Extremities Exam: Normal Inspection - Neurological Exam Neurological Exam: Alert, Awake, Normal Gait, Oriented x3 - Psychiatric Exam Psychiatric exam: Normal Affect, Normal Mood - Skin Skin Exam: Dry, Intact Assessment and Plan - Assessment and Plan (Free Text) Assessment: #Abdominal pain - LLQ,hx of diverticulosis. Possible mild or early uncomplicated diverticulitis. Ischemic colitis is also possible in vasculopath. #Vomiting #Mild diffuse colitis #Gastritis #Constipation #EVIE #CAD s/p stents #DM #HTN #Prolonged QTc Plan: -Continue supportive care -CT abd/pelv findings noted for mild colitis and diverticulosis -Concern for infectious colitis, diverticulitis -Continue flagyl, ciprofloxacin -NPO -Stool studies -Continue PPI and as daily famotidine as needed. -Follow EVIE, continue fluids per primary -Recommend Telemetry to monitor QTc while on several QT prolonging meds (cipro, ppi, antacid, zofran) -Recommend CT abd/pelv with IV and PO contrast after 72 hrs if develops leukocytosis, worsening abdominal pain, fevers. Consider Cr. -She will need colonoscopy as an outpt to follow up on colitis findings -No planned procedures <Bhakti Ahmadi - Last Filed: 05/18/18 11:38> Objective - Vital Signs/Intake and Output Vital Signs (last 24 hours): Temp Pulse Resp BP Pulse Ox 98.2 F 61 20 150/76 95 05/18/18 08:44 05/18/18 08:44 05/18/18 08:44 05/18/18 10:01 05/18/18 08:44 Intake and Output: 05/18/18 05/18/18 06:59 18:59 Intake Total 200 Balance 200 - Medications Medications: Current Medications Amlodipine Besylate (Norvasc) 10 mg PO DAILY [facility] Last Admin: 05/18/18 10:01 Dose: 10 mg Aspirin (Aspirin) 325 mg PO DAILY [facility] Clopidogrel Bisulfate (Plavix) 75 mg PO DAILY [facility] Last Admin: 05/18/18 10:01 Dose: 75 mg Dextrose (Dextrose 50% Inj) 0 ml IV STAT PRN; Protocol PRN Reason: Hypoglycemia Protocol Dextrose (Glutose 15) 0 gm PO ONCE PRN; Protocol PRN Reason: Hypoglycemia Protocol Enalapril Maleate (Vasotec) 20 mg PO DAILY [facility] Last Admin: 05/18/18 10:01 Dose: 20 mg Ergocalciferol (Drisdol 50,000 Intl Units Cap) 1 cap PO QWK [facility] Famotidine (Pepcid) 20 mg PO DAILY [facility] Last Admin: 05/18/18 10:07 Dose: 20 mg Glucagon (Glucagen Diagnostic Kit) 0 mg IM STAT PRN; Protocol PRN Reason: Hypoglycemia Protocol Heparin Sodium (Porcine) (Heparin) 5,000 units SC Q12 [facility] Last Admin: 05/18/18 10:01 Dose: 5,000 units Home Med (Linagliptin [Tradjenta]) 5 mg PO DAILY [facility] Ciprofloxacin (Cipro 400mg/200ml Dsw) 400 mg in 200 mls @ 133 mls/hr IVPB DAILY [facility] PRN Reason: Protocol Last Admin: 05/18/18 10:07 Dose: 133 mls/hr Metronidazole (Flagyl) 500 mg in 100 mls @ 100 mls/hr IVPB Q8H [facility] PRN Reason: Protocol Last Admin: 05/18/18 10:07 Dose: 100 mls/hr Dextrose (Dextrose 5% In Water 1000 Ml) 1,000 mls @ 0 mls/hr IV .Q0M PRN; Protocol; Per Protocol PRN Reason: Hypoglycemia Protocol Insulin Human Regular (Novolin R) 0 unit SC ACHS [facility] PRN Reason: Protocol Last Admin: 05/18/18 08:11 Dose: 2 units Labetalol HCl (Trandate) 100 mg PO BID [facility] Last Admin: 05/18/18 10:02 Dose: 100 mg Nitroglycerin (Nitrostat Sl Tab) 0.4 mg SL Q5M PRN PRN Reason: CHEST PAIN Ondansetron HCl (Zofran Inj) 4 mg IVP Q8H PRN PRN Reason: Nausea/Vomiting Pantoprazole Sodium (Protonix Ec Tab) 40 mg PO DAILY [facility] Last Admin: 05/18/18 10:07 Dose: 40 mg - Labs Labs: 05/18/18 06:36 05/18/18 06:36 Attending/Attestation - Attestation I have personally seen and examined this patient.: Yes I have fully participated in the care of the patient.: Yes I have reviewed all pertinent clinical information, including history, physical exam and plan: Yes Notes (Text): I have seen and examined patient with GI fellow. In brief, this is an 87 year old female with history of DM, HTN, obesity, CAD who presents to hospital with complaint of abdominal pain and palpitations which began 3 days ago with one episode of non-bloody diarrhea. She had a colonoscopy over 5 years ago which was normal as per patient and an EGD in 2016 which showed gastritis with intestinal metaplasia. Ct showed segmental colitis and diverticulosis. Today on physical exam she had tenderness in LLQ on deep palpation. Will continue antibiotics. Had one bout of vomiting with CLD this am. Will add PPI to the regimen. Trend fever and wbc curve. Will follow
[2018-05-18] MEDS ORDERED: Ciprofloxacin 400mg/200ml D5W 400 MG/200 ML BAG IVPB SCH (10:00)
[2018-05-18] MEDS: Pantoprazole 40 mg EC Tab PO SCH (10:07)
--- NOTE | 2018-05-18 12:11 | CARD ---
APPROVED REPORT Date of service: 05/17/2018 EKG Measurement Heart [id number] [place] [id number] <Conclusion> Normal sinus rhythm Left ventricular hypertrophy with repolarization abnormality Prolonged QT Abnormal ECG
[2018-05-18] MEDS: Sodium Chloride 0.45% 1,000 ML IV SCH ×2 (13:19→23:00)
--- NOTE | 2018-05-18 14:01 | CP.PCM.PN ---
Subjective - Date & Time of Evaluation Date of Evaluation: 05/18/18 Time of Evaluation: 13:57 - Subjective Subjective: CHIEF COMPLAINTS TODAY : Patient is still complaining of lower abdominal pain mostly in the left lower quadrant no nausea or vomiting. No chest pain but complains of burning reflux symptoms ROS. HEENT : N. Resp : No cough, wheezing ,pleuritic CP ,or hemoptysis Cardio : No anginal CP, PND, orthopnea, palpitation GI : No n/v ,diarrhea or GI bleeding . HEALTH INFORMATION ADMINISTRATOR : No headache, vertigo, focal deficit. Musculoskel : No joint swelling , Derm : No rash Psych : Normal affect. Ext : No swelling ,calf pain PE. Pt. is alert awake in no distress. V.S As noted in the chart Head ,ear nose,throat and eyes : Normal. Neck : Supple with normal carotids. Lungs: Clear air entry. Heart : S1 & S2 normal with S4. No murmur. Abd : Soft tender with normal bowel sounds. Neuro : Moves all ext. with no localized deficit. Ext : No edema with intact pulses.Non tender calves Derm : No rashes or decubitus ulcer. LABS/RADIOLOGY: ASSESSMENT/PLAN : See Orders Objective - Vital Signs/Intake and Output Vital Signs (last 24 hours): Temp Pulse Resp BP Pulse Ox 98.2 F 61 20 150/76 95 05/18/18 08:44 05/18/18 08:44 05/18/18 08:44 05/18/18 10:01 05/18/18 08:44 Intake and Output: 05/18/18 05/18/18 11:59 23:59 Intake Total 200 Balance 200 - Medications Medications: Current Medications Amlodipine Besylate (Norvasc) 10 mg PO DAILY [facility] Last Admin: 05/18/18 10:01 Dose: 10 mg Aspirin (Aspirin) 325 mg PO DAILY [facility] Last Admin: 05/18/18 11:52 Dose: 325 mg Clopidogrel Bisulfate (Plavix) 75 mg PO DAILY [facility] Last Admin: 05/18/18 10:01 Dose: 75 mg Dextrose (Dextrose 50% Inj) 0 ml IV STAT PRN; Protocol PRN Reason: Hypoglycemia Protocol Dextrose (Glutose 15) 0 gm PO ONCE PRN; Protocol PRN Reason: Hypoglycemia Protocol Enalapril Maleate (Vasotec) 20 mg PO DAILY [facility] Last Admin: 05/18/18 10:01 Dose: 20 mg Ergocalciferol (Drisdol 50,000 Intl Units Cap) 1 cap PO QWK [facility] Glucagon (Glucagen Diagnostic Kit) 0 mg IM STAT PRN; Protocol PRN Reason: Hypoglycemia Protocol Heparin Sodium (Porcine) (Heparin) 5,000 units SC Q12 [facility] Last Admin: 05/18/18 10:01 Dose: 5,000 units Home Med (Linagliptin [Tradjenta]) 5 mg PO DAILY [facility] Ciprofloxacin (Cipro 400mg/200ml Dsw) 400 mg in 200 mls @ 133 mls/hr IVPB DAILY [facility] PRN Reason: Protocol Last Admin: 05/18/18 10:07 Dose: 133 mls/hr Metronidazole (Flagyl) 500 mg in 100 mls @ 100 mls/hr IVPB Q8H [facility] PRN Reason: Protocol Last Admin: 05/18/18 10:07 Dose: 100 mls/hr Dextrose (Dextrose 5% In Water 1000 Ml) 1,000 mls @ 0 mls/hr IV .Q0M PRN; Protocol; Per Protocol PRN Reason: Hypoglycemia Protocol Sodium Chloride (Sodium Chloride 0.45%) 1,000 mls @ 100 mls/hr IV .Q10H [facility] Last Admin: 05/18/18 13:19 Dose: 100 mls/hr Insulin Human Regular (Novolin R) 0 unit SC ACHS [facility] PRN Reason: Protocol Last Admin: 05/18/18 11:47 Dose: Not Given Labetalol HCl (Trandate) 100 mg PO BID [facility] Last Admin: 05/18/18 10:02 Dose: 100 mg Nitroglycerin (Nitrostat Sl Tab) 0.4 mg SL Q5M PRN PRN Reason: CHEST PAIN Ondansetron HCl (Zofran Inj) 4 mg IVP Q8H PRN PRN Reason: Nausea/Vomiting Pantoprazole Sodium (Protonix Ec Tab) 40 mg PO DAILY [facility] Last Admin: 05/18/18 10:07 Dose: 40 mg - Labs Labs: 05/18/18 06:36 05/18/18 06:36 Assessment and Plan (1) Colitis Status: Acute (2) CAD (coronary artery disease), [place] coronary artery Status: Acute (3) GERD with esophagitis Status: Acute (4) Diabetes 1.5, managed as type 2 Status: Chronic
[2018-05-18 14:33] LABS: CK-MB 0.86 ng/mL (0.0-3.38)
--- NOTE | 2018-05-18 18:13 | CP.PCM.CON ---
History of Present Illness - History of Present Illness History of Present Illness: INFECTIOUS DISEASE CONSULT; HPI; 87yo independent [place] speaking female presenting with History of coronary artery disease, diabetes mellitus, hypertension, gastritis, who was admitted on 05/18/18 with abdominal pain, chest pain, and elevated BP and palpitations. Patient complains of worsening abdominal pain for the last two-three days. + early satiety x2 weeks. The pain is concentrated at the LLQ and is a 5/10 dull pain. She has been having "black" stool recently as well. Urinating makes the pain better. Patient denies any dysuria or hematuria.DENIES DIARRHOEA BUT DOES C /O INTERMITTENT LOOSE STOOLAND SOMETIMES CONSTIPATION. She denies fever, nausea but frequently spitting out frothy clear secretions. .PATIENT DENIES ANY LOSS OF WEIGHT OR LOSS OF APPETITE. CAT SCAN OF THE ABDOMEN AND PELVIS CONSISTENT WITH infectious versus inflammatory COLITIS. INFECTIOUS DISEASE CONSULTATION REQUESTED BY PMD FOR INFECTIOUS COLITIS. PATIENT STARTED ON iv CIPRO AND FLAGYL BY THE pmd PMHx - CAD, HTN, DM PSHx - , cardiac stents, lap dominique, EGD 2016 - gastritis, intestinal metaplasia. FMHx - None SocHx - Previous heavy smoker. denies alcohol. lives at home. ALLERGY; PENICILLIN-HIVES, CEPHALEXIN, AND LACTOSE. Review of Systems - Constitutional Constitutional: absent: Chills, Fever, Weight Loss - EENT Eyes: absent: Change in Vision - Breasts Breasts: As Per HPI. absent: Mass, Nipple Discharge, Skin Changes - Cardiovascular Cardiovascular: Chest Pain. absent: Dyspnea, Leg Edema - Respiratory Respiratory: Excessive Mucous Production (WHITISH MUCOID PHLEGM.). absent: Cough - Gastrointestinal Gastrointestinal: Abdominal Pain, Change in Stool Character, Melena, Temesmus. absent: Diarrhea, Vomiting - Genitourinary Genitourinary: Urinary Frequency. absent: Dysuria - Musculoskeletal Musculoskeletal: absent: Myalgias - Neurological Neurological: absent: Headaches - Hematologic/Lymphatic Hematologic: As Per HPI. absent: Easy Bleeding, Easy Bruising, Lymphadenopathy Past Patient History - Infectious Disease Hx of Infectious Diseases: None - Past Medical History & Family History Past Medical History?: Yes - Past Social History Smoking Status: Former Smoker - CARDIAC Hx Hypercholesterolemia: Yes Hx Hypertension: Yes - PULMONARY Hx Chronic Obstructive Pulmonary Disease (COPD): Yes - NEUROLOGICAL Hx Neurological Disorder: No - HEENT Hx HEENT Problems: Yes Hx Cataracts: Yes (BILAT.) Other/Comment: Difficult hearing - RENAL Hx Chronic Kidney Disease: No - ENDOCRINE/METABOLIC Hx Diabetes Mellitus Type 2: Yes - HEMATOLOGICAL/ONCOLOGICAL Hx Blood Disorders: No - INTEGUMENTARY Hx Dermatological Problems: No - MUSCULOSKELETAL/RHEUMATOLOGICAL Hx Musculoskeletal Disorders: Yes Hx Degenerative Joint Disease: Yes Hx Falls: Yes - GASTROINTESTINAL Hx Gall Bladder Disease: Yes - GENITOURINARY/GYNECOLOGICAL Hx Genitourinary Disorders: No Other/Comment: TUBAL LIGATION,CEASEREAN X 2 - PSYCHIATRIC Hx Substance Use: No - SURGICAL HISTORY Hx Cholecystectomy: Yes Hx Coronary Stent: Yes - ANESTHESIA Hx Anesthesia: Yes Hx Anesthesia Reactions: No Hx Malignant Hyperthermia: No Meds Allergies/Adverse Reactions: Allergies Allergy/AdvReac Type Severity Reaction Status Date / Time cephalexin Allergy Intermediate RASH Verified 04/24/18 09:55 Penicillins Allergy Intermediate RASH Verified 04/24/18 09:55 lactose Allergy Mild ABDOMINAL Verified 04/24/18 09:55 DISCOMFORT - Medications Medications: Current Medications Amlodipine Besylate (Norvasc) 10 mg PO DAILY [facility] Last Admin: 05/18/18 10:01 Dose: 10 mg Aspirin (Aspirin) 325 mg PO DAILY [facility] Last Admin: 05/18/18 11:52 Dose: 325 mg Clopidogrel Bisulfate (Plavix) 75 mg PO DAILY [facility] Last Admin: 05/18/18 10:01 Dose: 75 mg Dextrose (Dextrose 50% Inj) 0 ml IV STAT PRN; Protocol PRN Reason: Hypoglycemia Protocol Dextrose (Glutose 15) 0 gm PO ONCE PRN; Protocol PRN Reason: Hypoglycemia Protocol Enalapril Maleate (Vasotec) 20 mg PO DAILY [facility] Last Admin: 05/18/18 10:01 Dose: 20 mg Ergocalciferol (Drisdol 50,000 Intl Units Cap) 1 cap PO QWK [facility] Glucagon (Glucagen Diagnostic Kit) 0 mg IM STAT PRN; Protocol PRN Reason: Hypoglycemia Protocol Heparin Sodium (Porcine) (Heparin) 5,000 units SC Q12 [facility] Last Admin: 05/18/18 10:01 Dose: 5,000 units Home Med (Linagliptin [Tradjenta]) 5 mg PO DAILY [facility] Ciprofloxacin (Cipro 400mg/200ml Dsw) 400 mg in 200 mls @ 133 mls/hr IVPB DAILY [facility] PRN Reason: Protocol Last Admin: 05/18/18 10:07 Dose: 133 mls/hr Metronidazole (Flagyl) 500 mg in 100 mls @ 100 mls/hr IVPB Q8H [facility] PRN Reason: Protocol Last Admin: 05/18/18 17:58 Dose: 100 mls/hr Dextrose (Dextrose 5% In Water 1000 Ml) 1,000 mls @ 0 mls/hr IV .Q0M PRN; Protocol; Per Protocol PRN Reason: Hypoglycemia Protocol Sodium Chloride (Sodium Chloride 0.45%) 1,000 mls @ 100 mls/hr IV .Q10H [facility] Last Admin: 05/18/18 13:19 Dose: 100 mls/hr Insulin Human Regular (Novolin R) 0 unit SC ACHS [facility] PRN Reason: Protocol Last Admin: 05/18/18 17:30 Dose: 2 units Labetalol HCl (Trandate) 100 mg PO BID [facility] Last Admin: 05/18/18 17:59 Dose: Not Given Nitroglycerin (Nitrostat Sl Tab) 0.4 mg SL Q5M PRN PRN Reason: CHEST PAIN Ondansetron HCl (Zofran Inj) 4 mg IVP Q8H PRN PRN Reason: Nausea/Vomiting Pantoprazole Sodium (Protonix Ec Tab) 40 mg PO DAILY [facility] Last Admin: 05/18/18 10:07 Dose: 40 mg Physical Exam - Constitutional Appears: No Acute Distress - Head Exam Head Exam: NORMAL INSPECTION - Eye Exam Eye Exam: EOMI, PERRL - ENT Exam ENT Exam: Normal Oropharynx - Neck Exam Neck exam: Positive for: Normal Inspection - Respiratory Exam Respiratory Exam: Clear to Auscultation Bilateral, NORMAL BREATHING PATTERN - Cardiovascular Exam Cardiovascular Exam: REGULAR RHYTHM, +S1, +S2 - GI/Abdominal Exam GI & Abdominal Exam: Soft, Tenderness ( LEFT LOWER QUADRANT.) - Extremities Exam Extremities exam: Positive for: pedal pulses present. Negative for: calf tenderness, pedal edema - Neurological Exam Neurological exam: Alert, CN II-XII Intact, Oriented x3, Reflexes Normal - Skin Skin Exam: Normal Color, Warm Results - Vital Signs Recent Vital Signs: Last Vital Signs Temp 97.5 F L 05/18/18 15:00 Pulse 57 L 05/18/18 15:00 Resp 18 05/18/18 15:00 BP 107/65 05/18/18 15:00 Pulse Ox 96 05/18/18 15:00 - Labs Result Diagrams: 05/18/18 06:36 05/18/18 06:36 Labs: Laboratory Results - last 24 hr 05/17/18 05/17/18 05/18/18 21:08 21:40 06:36 WBC 9.9 RBC 4.84 Hgb 13.5 Hct 39.1 MCV 80.7 L MCH 27.9 MCHC 34.5 RDW 14.6 H Plt Count 223 MPV 10.2 Neut % (Auto) 78.3 H Lymph % (Auto) 12.9 L [place] % (Auto) 5.4 Eos % (Auto) 2.2 Baso % (Auto) 1.2 Neut # (Auto) 7.7 H Lymph # (Auto) 1.3 [place] # (Auto) 0.5 Eos # (Auto) 0.2 Baso # (Auto) 0.1 Sodium Potassium Chloride Carbon Dioxide Anion Gap BUN Creatinine Est GFR ( Amer) Est GFR (Non-Af Amer) POC Glucose (mg/dL) 163 H Random Glucose Calcium Total Bilirubin AST ALT Alkaline Phosphatase Total Creatine Kinase 38 CK-MB (Mass) 0.67 Troponin I < 0.0120 Total Protein Albumin Globulin Albumin/Globulin Ratio 05/18/18 05/18/18 05/18/18 06:36 07:15 11:15 WBC RBC Hgb Hct MCV MCH MCHC RDW Plt Count MPV Neut % (Auto) Lymph % (Auto) [place] % (Auto) Eos % (Auto) Baso % (Auto) Neut # (Auto) Lymph # (Auto) [place] # (Auto) Eos # (Auto) Baso # (Auto) Sodium 140 Potassium 3.8 Chloride 101 Carbon Dioxide 26 Anion Gap 17 BUN 18 H Creatinine 1.6 H Est GFR ( Amer) 37 Est GFR (Non-Af Amer) 30 POC Glucose (mg/dL) 155 H 214 H Random Glucose 161 H Calcium 8.8 Total Bilirubin 0.9 AST 26 ALT 20 Alkaline Phosphatase 98 Total Creatine Kinase 39 CK-MB (Mass) 0.72 Troponin I < 0.0120 Total Protein 7.0 Albumin 3.8 Globulin 3.3 Albumin/Globulin Ratio 1.2 05/18/18 05/18/18 13:53 16:45 WBC RBC Hgb Hct MCV MCH MCHC RDW Plt Count MPV Neut % (Auto) Lymph % (Auto) [place] % (Auto) Eos % (Auto) Baso % (Auto) Neut # (Auto) Lymph # (Auto) [place] # (Auto) Eos # (Auto) Baso # (Auto) Sodium Potassium Chloride Carbon Dioxide Anion Gap BUN Creatinine Est GFR ( Amer) Est GFR (Non-Af Amer) POC Glucose (mg/dL) 151 H Random Glucose Calcium Total Bilirubin AST ALT Alkaline Phosphatase Total Creatine Kinase 47 CK-MB (Mass) 0.86 Troponin I < 0.0120 Total Protein Albumin Globulin Albumin/Globulin Ratio - Imaging and Cardiology CT scan - abdomen/PELVIS WITH PO CONTRAST Status: Report reviewed by me (MURAL THICKENING OF THE ASCENDING, TRANSVERSE, PROXIMAL DESCENDING COLON WITH NONSPECIFIC INFECTIOUS INFLAMMATORY COLITIS. nEGATIVE BOWEL OBSTRUCTION) Assessment & Plan (1) Colitis Assessment and Plan: pancultures' Stool for C. difficile toxin. Continue IV Flagyl 500 IV piggyback every 8 hourly. 05/18/18 continue IV Cipro 500 mg every 12 hourly. 05/18/18 follow-up cultures to adjust antibiotics Status: Acute (2) Abdominal pain Assessment and Plan: c/o generalized abdominal pain mainly umblical and left lower quadrant seen by GI. Status: Acute (3) Diabetes 1.5, managed as type 2 Assessment and Plan: adequate control of blood sugars Hemoglobin A1c. IV fluids as patient made nothing by mouth by GI. Status: Chronic (4) Chronic renal insufficiency Assessment and Plan: patient presently BUN 18/creatinine 1.6 . IV fluids as per PMD. Monitor renal functions closely. Status: Acute
[2018-05-18] MEDS: Vancomycin 125 MG/5 ML SOLN (ORAL/RECTAL) PO SCH (22:52)
[2018-05-19] MEDS: metroNIDAZOLE IV 500 mg/100 ml 500 MG/100 ML BAG IVPB SCH ×3 (01:50→18:00)
[2018-05-19] MEDS: Sodium Chloride 0.45% 1,000 ML IV SCH ×4 (01:51→19:00)
[2018-05-19 07:12] LABS: BASO # 0.1 K/uL (0.0-0.2); BASO % 1.1 % (0.0-2.0); EOS # 0.2 K/uL (0.0-0.7); EOS % 2.4 % (0.0-4.0); HEMOGLOBIN 12.6 g/dL (11.0-16.0); LYMPH % 9.8 % (20.0-40.0); MEAN CELL VOLUME 80.6 fL (81.0-99.0); MEAN CORPUSCULAR HEMOGLOBIN 27.9 pg (27.0-31.0); MEAN CORPUSCULAR HGB CONC 34.7 g/dL (33.0-37.0); MEAN PLATELET VOLUME 10.4 fL (7.2-11.7); MONO # 0.5 K/uL (0.0-0.8); MONO % 5.3 % (0.0-10.0); NEUT # 7.9 K/uL (1.8-7.0); NEUT % 81.4 % (50.0-75.0); PLATELET COUNT 200 K/uL (130-400); RBC 4.52 Mil/uL (3.80-5.20); RED CELL DISTRIBUTION WIDTH 14.6 % (11.5-14.5); WHITE BLOOD COUNT 9.7 K/uL (4.8-10.8)
[2018-05-19 08:04] LABS: ALB/GLOB RATIO 1.2 (1.0-2.1); ALBUMIN 3.5 g/dL (3.5-5.0); CALCIUM 8.5 mg/dl (8.6-10.4)
[2018-05-19] MEDS: (Novolin R) Insulin Human Regular 100 units/ml vial SC SCH ×4 (08:17→22:00)
[2018-05-19 09:03] LABS: BANDS 1 % (0-2); BASOPHIL 1 % (0-2); LYMPHOCYTE 8 % (20-40); MONOCYTE 5 % (0-10); NEUTROPHIL 85 % (50-75); PLATELET ESTIMATE NORMAL (NORMAL); TOTAL CELLS COUNTED 100
[2018-05-19 09:04] LABS: ANISOCYTOSIS SLIGHT; LARGE PLATELETS PRESENT; TOXIC GRANULATION PRESENT
[2018-05-19] MEDS: Pantoprazole 40 mg EC Tab PO SCH (09:41)
[2018-05-19] MEDS: Vancomycin 125 MG/5 ML SOLN (ORAL/RECTAL) PO SCH ×4 (09:49→21:56)
--- NOTE | 2018-05-19 11:19 | CP.PCM.PN ---
<Lindsay Ponce - Last Filed: 05/19/18 11:15> Subjective - Date & Time of Evaluation Date of Evaluation: 05/19/18 Time of Evaluation: 08:00 - Subjective Subjective: PGY5 GI Follow-up Pt seen and examined bedside pt notes mild lower abd pain\ x1 soft BM overnight, denies any rectal bleeding ROS: 12 point ROS conducted, neg other than above Objective - Vital Signs/Intake and Output Vital Signs (last 24 hours): Temp Pulse Resp BP Pulse Ox 98 F 68 20 177/81 H 99 05/19/18 08:00 05/19/18 08:00 05/19/18 08:00 05/19/18 09:31 05/19/18 08:00 Intake and Output: 05/19/18 05/19/18 06:59 18:59 Intake Total 900 Output Total 600 Balance 300 - Medications Medications: Current Medications Amlodipine Besylate (Norvasc) 10 mg PO DAILY [facility] Last Admin: 05/19/18 09:32 Dose: 10 mg Aspirin (Aspirin) 325 mg PO DAILY [facility] Last Admin: 05/19/18 09:33 Dose: 325 mg Clopidogrel Bisulfate (Plavix) 75 mg PO DAILY [facility] Last Admin: 05/19/18 09:31 Dose: 75 mg Dextrose (Dextrose 50% Inj) 0 ml IV STAT PRN; Protocol PRN Reason: Hypoglycemia Protocol Dextrose (Glutose 15) 0 gm PO ONCE PRN; Protocol PRN Reason: Hypoglycemia Protocol Enalapril Maleate (Vasotec) 20 mg PO DAILY [facility] Last Admin: 05/19/18 09:31 Dose: 20 mg Ergocalciferol (Drisdol 50,000 Intl Units Cap) 1 cap PO QWK [facility] Glucagon (Glucagen Diagnostic Kit) 0 mg IM STAT PRN; Protocol PRN Reason: Hypoglycemia Protocol Heparin Sodium (Porcine) (Heparin) 5,000 units SC Q12 [facility] Last Admin: 05/19/18 09:33 Dose: 5,000 units Home Med (Linagliptin [Tradjenta]) 5 mg PO DAILY [facility] Metronidazole (Flagyl) 500 mg in 100 mls @ 100 mls/hr IVPB Q8H [facility] PRN Reason: Protocol Last Admin: 05/19/18 09:31 Dose: 100 mls/hr Dextrose (Dextrose 5% In Water 1000 Ml) 1,000 mls @ 0 mls/hr IV .Q0M PRN; Protocol; Per Protocol PRN Reason: Hypoglycemia Protocol Sodium Chloride (Sodium Chloride 0.45%) 1,000 mls @ 100 mls/hr IV .Q10H [facility] Last Admin: 05/19/18 01:51 Dose: 100 mls/hr Insulin Human Regular (Novolin R) 0 unit SC ACHS [facility] PRN Reason: Protocol Last Admin: 05/19/18 08:17 Dose: 3 units Labetalol HCl (Trandate) 100 mg PO BID [facility] Last Admin: 05/19/18 09:33 Dose: 100 mg Nitroglycerin (Nitrostat Sl Tab) 0.4 mg SL Q5M PRN PRN Reason: CHEST PAIN Ondansetron HCl (Zofran Inj) 4 mg IVP Q8H PRN PRN Reason: Nausea/Vomiting Pantoprazole Sodium (Protonix Ec Tab) 40 mg PO DAILY [facility] Last Admin: 05/19/18 09:41 Dose: 40 mg Vancomycin HCl (Vancocin (Oral Or Rectal Use)) 250 mg PO QID [facility] PRN Reason: Protocol Last Admin: 05/19/18 09:49 Dose: 250 mg - Labs Labs: 05/19/18 06:55 05/19/18 06:55 - Constitutional Appears: Well, No Acute Distress - Head Exam Head Exam: ATRAUMATIC, NORMOCEPHALIC - Eye Exam Eye Exam: Normal appearance - ENT Exam ENT Exam: Mucous Membranes Moist, Normal Exam - Neck Exam Neck Exam: Normal Inspection - Respiratory Exam Respiratory Exam: Clear to Ausculation Bilateral, NORMAL BREATHING PATTERN. absent: Rales, Rhonchi, Wheezes, Respiratory Distress - Cardiovascular Exam Cardiovascular Exam: REGULAR RHYTHM, +S1, +S2 - GI/Abdominal Exam GI & Abdominal Exam: Soft, Tenderness (lower abd), Normal Bowel Sounds. absent : Guarding, Rigid, Organomegaly, Rebound - Extremities Exam Extremities Exam: absent: Joint Swelling, Pedal Edema - Neurological Exam Neurological Exam: Alert, Awake, Oriented x3 - Psychiatric Exam Psychiatric exam: Normal Affect, Normal Mood - Skin Skin Exam: Dry, Intact, Normal Color, Warm Assessment and Plan - Assessment and Plan (Free Text) Assessment: #C.diff colitis #Vomiting #Mild diffuse colitis #Gastritis #Constipation #EVIE #CAD s/p stents #DM #HTN #Prolonged QTc Plan: -Continue supportive care -CT abd/pelv findings noted for mild colitis and diverticulosis -continue abx as per ID, recommend monotherapy with either flagyl or PO vancomycin -continue to montor stool oupt -stool cultures pending -will need outp colonoscopy -advance diet as tolerated D/W Dr. Ahmadi <Bhakti Ahmadi - Last Filed: 05/20/18 12:21> Objective - Vital Signs/Intake and Output Vital Signs (last 24 hours): Temp Pulse Resp BP Pulse Ox 98.4 F 64 18 137/70 97 05/20/18 07:50 05/20/18 07:51 05/20/18 07:50 05/20/18 09:28 05/20/18 07:50 Intake and Output: 05/20/18 05/20/18 06:59 18:59 Intake Total 1040 Balance 1040 - Medications Medications: Current Medications Amlodipine Besylate (Norvasc) 10 mg PO DAILY [facility] Last Admin: 05/20/18 09:27 Dose: 10 mg Aspirin (Aspirin) 325 mg PO DAILY [facility] Last Admin: 05/20/18 09:26 Dose: 325 mg Clopidogrel Bisulfate (Plavix) 75 mg PO DAILY [facility] Last Admin: 05/20/18 09:27 Dose: 75 mg Dextrose (Dextrose 50% Inj) 0 ml IV STAT PRN; Protocol PRN Reason: Hypoglycemia Protocol Dextrose (Glutose 15) 0 gm PO ONCE PRN; Protocol PRN Reason: Hypoglycemia Protocol Enalapril Maleate (Vasotec) 20 mg PO DAILY [facility] Last Admin: 05/20/18 09:28 Dose: 20 mg Ergocalciferol (Drisdol 50,000 Intl Units Cap) 1 cap PO QWK [facility] Glucagon (Glucagen Diagnostic Kit) 0 mg IM STAT PRN; Protocol PRN Reason: Hypoglycemia Protocol Heparin Sodium (Porcine) (Heparin) 5,000 units SC Q12 [facility] Last Admin: 05/20/18 09:27 Dose: 5,000 units Home Med (Patient's Own Medication) 1 tab PO DAILY [facility] Last Admin: 05/20/18 09:28 Dose: 1 tab Metronidazole (Flagyl) 500 mg in 100 mls @ 100 mls/hr IVPB Q8H [facility] PRN Reason: Protocol Last Admin: 05/20/18 09:26 Dose: 100 mls/hr Dextrose (Dextrose 5% In Water 1000 Ml) 1,000 mls @ 0 mls/hr IV .Q0M PRN; Protocol; Per Protocol PRN Reason: Hypoglycemia Protocol Sodium Chloride (Sodium Chloride 0.45%) 1,000 mls @ 100 mls/hr IV .Q10H [facility] Last Admin: 05/20/18 05:10 Dose: 100 mls/hr Insulin Human Regular (Novolin R) 0 unit SC ACHS [facility] PRN Reason: Protocol Last Admin: 05/20/18 08:32 Dose: 2 units Labetalol HCl (Trandate) 100 mg PO BID [facility] Last Admin: 05/20/18 09:27 Dose: 100 mg Nitroglycerin (Nitrostat Sl Tab) 0.4 mg SL Q5M PRN PRN Reason: CHEST PAIN Ondansetron HCl (Zofran Inj) 4 mg IVP Q8H PRN PRN Reason: Nausea/Vomiting Last Admin: 05/20/18 08:32 Dose: 4 mg Pantoprazole Sodium (Protonix Ec Tab) 40 mg PO DAILY [facility] Last Admin: 05/20/18 09:26 Dose: 40 mg Vancomycin HCl (Vancocin (Oral Or Rectal Use)) 250 mg PO QID [facility] PRN Reason: Protocol Last Admin: 05/20/18 09:26 Dose: 250 mg - Labs Labs: 05/20/18 07:04 05/20/18 07:04 Attending/Attestation - Attestation I have fully participated in the care of the patient.: Yes I have reviewed all pertinent clinical information, including history, physical exam and plan: Yes Notes (Text): 05/20/18 12:20 I have fully discussed patient with GI fellow. In brief, this is an 87 year old female with history of DM, HTN, obesity, CAD who presents to hospital with complaint of abdominal pain and palpitations which began 3 days ago with one episode of non-bloody diarrhea. She had a colonoscopy over 5 years ago which was normal as per patient and an EGD in 2016 which showed gastritis with intestinal metaplasia. Ct showed segmental colitis and diverticulosis. C diff positive. Will continue antibiotics. Trend fever and wbc curve
--- NOTE | 2018-05-19 14:41 | CP.PCM.PN ---
Subjective - Date & Time of Evaluation Date of Evaluation: 05/19/18 Time of Evaluation: 14:40 - Subjective Subjective: CHIEF COMPLAINTS TODAY : patient has very minimal abdominal pain. No nausea or vomiting. Stool for C. difficile is positive patient is on isolation with IV and by mouth antibiotics ROS. HEENT : N. Resp : No cough, wheezing ,pleuritic CP ,or hemoptysis Cardio : No anginal CP, PND, orthopnea, palpitation GI : No n/v ,diarrhea or GI bleeding . 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 Musculoskel : No joint swelling , Derm : No rash Psych : Normal affect. Ext : No swelling ,calf pain PE. Pt. is alert awake in no distress. V.S As noted in the chart Head ,ear nose,throat and eyes : Normal. Neck : Supple with normal carotids. Lungs: Clear air entry. Heart : S1 & S2 normal with S4. No murmur. Abd : Soft tender with normal bowel sounds. Neuro : Moves all ext. with no localized deficit. Ext : No edema with intact pulses.Non tender calves Derm : No rashes or decubitus ulcer. LABS/RADIOLOGY: ASSESSMENT/PLAN : continue IV and by mouth antibiotics. Monitor blood sugars and QT interval. Objective - Vital Signs/Intake and Output Vital Signs (last 24 hours): Temp Pulse Resp BP Pulse Ox 98 F 61 20 177/81 H 99 05/19/18 08:00 05/19/18 08:00 05/19/18 08:00 05/19/18 09:31 05/19/18 08:00 Intake and Output: 05/19/18 05/19/18 11:59 23:59 Intake Total 900 Output Total 600 Balance 300 - Medications Medications: Current Medications Amlodipine Besylate (Norvasc) 10 mg PO DAILY [facility] Last Admin: 05/19/18 09:32 Dose: 10 mg Aspirin (Aspirin) 325 mg PO DAILY [facility] Last Admin: 05/19/18 09:33 Dose: 325 mg Clopidogrel Bisulfate (Plavix) 75 mg PO DAILY [facility] Last Admin: 05/19/18 09:31 Dose: 75 mg Dextrose (Dextrose 50% Inj) 0 ml IV STAT PRN; Protocol PRN Reason: Hypoglycemia Protocol Dextrose (Glutose 15) 0 gm PO ONCE PRN; Protocol PRN Reason: Hypoglycemia Protocol Enalapril Maleate (Vasotec) 20 mg PO DAILY [facility] Last Admin: 05/19/18 09:31 Dose: 20 mg Ergocalciferol (Drisdol 50,000 Intl Units Cap) 1 cap PO QWK [facility] Glucagon (Glucagen Diagnostic Kit) 0 mg IM STAT PRN; Protocol PRN Reason: Hypoglycemia Protocol Heparin Sodium (Porcine) (Heparin) 5,000 units SC Q12 [facility] Last Admin: 05/19/18 09:33 Dose: 5,000 units Home Med (Linagliptin [Tradjenta]) 5 mg PO DAILY [facility] Metronidazole (Flagyl) 500 mg in 100 mls @ 100 mls/hr IVPB Q8H [facility] PRN Reason: Protocol Last Admin: 05/19/18 09:31 Dose: 100 mls/hr Dextrose (Dextrose 5% In Water 1000 Ml) 1,000 mls @ 0 mls/hr IV .Q0M PRN; Protocol; Per Protocol PRN Reason: Hypoglycemia Protocol Sodium Chloride (Sodium Chloride 0.45%) 1,000 mls @ 100 mls/hr IV .Q10H [facility] Last Admin: 05/19/18 14:11 Dose: Not Given Insulin Human Regular (Novolin R) 0 unit SC ACHS [facility] PRN Reason: Protocol Last Admin: 05/19/18 12:45 Dose: 2 units Labetalol HCl (Trandate) 100 mg PO BID [facility] Last Admin: 05/19/18 09:33 Dose: 100 mg Nitroglycerin (Nitrostat Sl Tab) 0.4 mg SL Q5M PRN PRN Reason: CHEST PAIN Ondansetron HCl (Zofran Inj) 4 mg IVP Q8H PRN PRN Reason: Nausea/Vomiting Pantoprazole Sodium (Protonix Ec Tab) 40 mg PO DAILY [facility] Last Admin: 05/19/18 09:41 Dose: 40 mg Vancomycin HCl (Vancocin (Oral Or Rectal Use)) 250 mg PO QID [facility] PRN Reason: Protocol Last Admin: 05/19/18 14:08 Dose: 250 mg - Labs Labs: 05/19/18 06:55 05/19/18 06:55 Assessment and Plan (1) Colitis Status: Acute (2) CAD (coronary artery disease), [place] coronary artery Status: Acute (3) GERD with esophagitis Status: Acute (4) Diabetes 1.5, managed as type 2 Status: Chronic
--- NOTE | 2018-05-19 15:57 | CP.PCM.PN ---
Subjective - Date & Time of Evaluation Date of Evaluation: 05/19/18 Time of Evaluation: 15:57 - Subjective Subjective: CHIEF COMPLAINTS TODAY : AFEBRILE C/O MILD LEFT LOWER QUADRANT PAIN. NO N/V Stool for C. difficile +VE ROS. HEENT : N. Resp : No cough, wheezing ,pleuritic CP ,or hemoptysis Cardio : No anginal CP, PND, orthopnea, palpitation GI : No n/v ,diarrhea or GI bleeding . 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 Musculoskel : No joint swelling , Derm : No rash Psych : Normal affect. Ext : No swelling ,calf pain PE. Pt. is alert awake in no distress. V.S As noted in the chart Head ,ear nose,throat and eyes : Normal. Neck : Supple with normal carotids. Lungs: Clear air entry. Heart : S1 & S2 normal with S4. No murmur. Abd : SOFT, MILD TENDERNESS MID ABDOMEN LIKELY AND LEFT LOWER QUADRANT, normal bowel sounds. Neuro : Moves all ext. with no localized deficit. Ext : No edema with intact pulses.Non tender calves Derm : No rashes or decubitus ulcer. LABS/RADIOLOGY: REVIEWED . Objective - Vital Signs/Intake and Output Vital Signs (last 24 hours): Temp Pulse Resp BP Pulse Ox 98 F 61 20 177/81 H 99 05/19/18 08:00 05/19/18 08:00 05/19/18 08:00 05/19/18 09:31 05/19/18 08:00 Intake and Output: 05/19/18 05/19/18 06:59 18:59 Intake Total 900 1100 Output Total 600 Balance 300 1100 - Medications Medications: Current Medications Amlodipine Besylate (Norvasc) 10 mg PO DAILY [facility] Last Admin: 05/19/18 09:32 Dose: 10 mg Aspirin (Aspirin) 325 mg PO DAILY [facility] Last Admin: 05/19/18 09:33 Dose: 325 mg Clopidogrel Bisulfate (Plavix) 75 mg PO DAILY [facility] Last Admin: 05/19/18 09:31 Dose: 75 mg Dextrose (Dextrose 50% Inj) 0 ml IV STAT PRN; Protocol PRN Reason: Hypoglycemia Protocol Dextrose (Glutose 15) 0 gm PO ONCE PRN; Protocol PRN Reason: Hypoglycemia Protocol Enalapril Maleate (Vasotec) 20 mg PO DAILY [facility] Last Admin: 05/19/18 09:31 Dose: 20 mg Ergocalciferol (Drisdol 50,000 Intl Units Cap) 1 cap PO QWK [facility] Glucagon (Glucagen Diagnostic Kit) 0 mg IM STAT PRN; Protocol PRN Reason: Hypoglycemia Protocol Heparin Sodium (Porcine) (Heparin) 5,000 units SC Q12 [facility] Last Admin: 05/19/18 09:33 Dose: 5,000 units Home Med (Linagliptin [Tradjenta]) 5 mg PO DAILY [facility] Metronidazole (Flagyl) 500 mg in 100 mls @ 100 mls/hr IVPB Q8H [facility] PRN Reason: Protocol Last Admin: 05/19/18 09:31 Dose: 100 mls/hr Dextrose (Dextrose 5% In Water 1000 Ml) 1,000 mls @ 0 mls/hr IV .Q0M PRN; Protocol; Per Protocol PRN Reason: Hypoglycemia Protocol Sodium Chloride (Sodium Chloride 0.45%) 1,000 mls @ 100 mls/hr IV .Q10H [facility] Last Admin: 05/19/18 14:11 Dose: Not Given Insulin Human Regular (Novolin R) 0 unit SC ACHS [facility] PRN Reason: Protocol Last Admin: 05/19/18 12:45 Dose: 2 units Labetalol HCl (Trandate) 100 mg PO BID [facility] Last Admin: 05/19/18 09:33 Dose: 100 mg Nitroglycerin (Nitrostat Sl Tab) 0.4 mg SL Q5M PRN PRN Reason: CHEST PAIN Ondansetron HCl (Zofran Inj) 4 mg IVP Q8H PRN PRN Reason: Nausea/Vomiting Pantoprazole Sodium (Protonix Ec Tab) 40 mg PO DAILY [facility] Last Admin: 05/19/18 09:41 Dose: 40 mg Vancomycin HCl (Vancocin (Oral Or Rectal Use)) 250 mg PO QID [facility] PRN Reason: Protocol Last Admin: 05/19/18 14:08 Dose: 250 mg - Labs Labs: 05/19/18 06:55 05/19/18 06:55 Assessment and Plan (1) Colitis Assessment & Plan: Stool for C. difficile toxin +VE START BY MOUTH VANCOMYCIN 250 BY MOUTH 4 TIMES A DAY 05/19/18 Continue IV Flagyl 500 IV piggyback every 8 hourly. 05/18/18 DC IV Cipro 500 mg every 12 hourly. 05/18/18 Status: Acute (2) Abdominal pain Assessment & Plan: ABDOMINAL PAIN SLIGHTLY IMPROVED. STOOLS SOFT. Status: Acute (3) Diabetes 1.5, managed as type 2 Status: Chronic (4) Chronic renal insufficiency Assessment & Plan: MONITOR RENAL FUNCTIONS CLOSELY. CREATININE 1.5 bun 14 IMPROVING. Status: Acute
[2018-05-20] MEDS: metroNIDAZOLE IV 500 mg/100 ml 500 MG/100 ML BAG IVPB SCH ×3 (02:03→17:19)
[2018-05-20] MEDS: Sodium Chloride 0.45% 1,000 ML IV SCH ×2 (05:10→14:22)
[2018-05-20 07:15] LABS: BASO # 0.1 K/uL (0.0-0.2); BASO % 1.2 % (0.0-2.0); EOS # 0.2 K/uL (0.0-0.7); HEMOGLOBIN 12.5 g/dL (11.0-16.0); LYMPH # 0.9 K/uL (1.0-4.3); LYMPH % 9.3 % (20.0-40.0); MEAN CELL VOLUME 80.6 fL (81.0-99.0); MEAN CORPUSCULAR HEMOGLOBIN 27.9 pg (27.0-31.0); MEAN CORPUSCULAR HGB CONC 34.7 g/dL (33.0-37.0); MEAN PLATELET VOLUME 10.2 fL (7.2-11.7); MONO # 0.5 K/uL (0.0-0.8); MONO % 5.1 % (0.0-10.0); NEUT # 7.8 K/uL (1.8-7.0); NEUT % 82.4 % (50.0-75.0); PLATELET COUNT 203 K/uL (130-400); RBC 4.49 Mil/uL (3.80-5.20); RED CELL DISTRIBUTION WIDTH 14.5 % (11.5-14.5); WHITE BLOOD COUNT 9.4 K/uL (4.8-10.8)
[2018-05-20 08:01] LABS: ALB/GLOB RATIO 1.2 (1.0-2.1); ALBUMIN 3.4 g/dL (3.5-5.0); CALCIUM 8.4 mg/dl (8.6-10.4)
[2018-05-20] MEDS: (Novolin R) Insulin Human Regular 100 units/ml vial SC SCH ×4 (08:32→21:48)
[2018-05-20] MEDS: Vancomycin 125 MG/5 ML SOLN (ORAL/RECTAL) PO SCH ×4 (09:26→21:51)
[2018-05-20] MEDS: Pantoprazole 40 mg EC Tab PO SCH (09:26)
[2018-05-20 10:36] LABS: EOSINOPHIL 1 % (0-4); LYMPHOCYTE 6 % (20-40); MONOCYTE 2 % (0-10); NEUTROPHIL 91 % (50-75); PLATELET ESTIMATE NORMAL (NORMAL); TOTAL CELLS COUNTED 100
--- NOTE | 2018-05-20 11:29 | CP.PCM.PN ---
<Lindsay Ponce - Last Filed: 05/20/18 11:31> Subjective - Date & Time of Evaluation Date of Evaluation: 05/20/18 Time of Evaluation: 08:00 - Subjective Subjective: PGY5 GI Follow-up Pt seen and examined bedside complaing of nausea and x1 emesis still has some abd pain denies any fever, chills or diaphoresis ROS: 12 point ROS conducted, neg other than above Objective - Vital Signs/Intake and Output Vital Signs (last 24 hours): Temp Pulse Resp BP Pulse Ox 98.4 F 64 18 137/70 97 05/20/18 07:50 05/20/18 07:51 05/20/18 07:50 05/20/18 09:28 05/20/18 07:50 Intake and Output: 05/20/18 05/20/18 06:59 18:59 Intake Total 1040 Balance 1040 - Medications Medications: Current Medications Amlodipine Besylate (Norvasc) 10 mg PO DAILY [facility] Last Admin: 05/20/18 09:27 Dose: 10 mg Aspirin (Aspirin) 325 mg PO DAILY [facility] Last Admin: 05/20/18 09:26 Dose: 325 mg Clopidogrel Bisulfate (Plavix) 75 mg PO DAILY [facility] Last Admin: 05/20/18 09:27 Dose: 75 mg Dextrose (Dextrose 50% Inj) 0 ml IV STAT PRN; Protocol PRN Reason: Hypoglycemia Protocol Dextrose (Glutose 15) 0 gm PO ONCE PRN; Protocol PRN Reason: Hypoglycemia Protocol Enalapril Maleate (Vasotec) 20 mg PO DAILY [facility] Last Admin: 05/20/18 09:28 Dose: 20 mg Ergocalciferol (Drisdol 50,000 Intl Units Cap) 1 cap PO QWK [facility] Glucagon (Glucagen Diagnostic Kit) 0 mg IM STAT PRN; Protocol PRN Reason: Hypoglycemia Protocol Heparin Sodium (Porcine) (Heparin) 5,000 units SC Q12 [facility] Last Admin: 05/20/18 09:27 Dose: 5,000 units Home Med (Patient's Own Medication) 1 tab PO DAILY [facility] Last Admin: 05/20/18 09:28 Dose: 1 tab Metronidazole (Flagyl) 500 mg in 100 mls @ 100 mls/hr IVPB Q8H [facility] PRN Reason: Protocol Last Admin: 05/20/18 09:26 Dose: 100 mls/hr Dextrose (Dextrose 5% In Water 1000 Ml) 1,000 mls @ 0 mls/hr IV .Q0M PRN; Protocol; Per Protocol PRN Reason: Hypoglycemia Protocol Sodium Chloride (Sodium Chloride 0.45%) 1,000 mls @ 100 mls/hr IV .Q10H [facility] Last Admin: 05/20/18 05:10 Dose: 100 mls/hr Insulin Human Regular (Novolin R) 0 unit SC ACHS [facility] PRN Reason: Protocol Last Admin: 05/20/18 08:32 Dose: 2 units Labetalol HCl (Trandate) 100 mg PO BID [facility] Last Admin: 05/20/18 09:27 Dose: 100 mg Nitroglycerin (Nitrostat Sl Tab) 0.4 mg SL Q5M PRN PRN Reason: CHEST PAIN Ondansetron HCl (Zofran Inj) 4 mg IVP Q8H PRN PRN Reason: Nausea/Vomiting Last Admin: 05/20/18 08:32 Dose: 4 mg Pantoprazole Sodium (Protonix Ec Tab) 40 mg PO DAILY [facility] Last Admin: 05/20/18 09:26 Dose: 40 mg Vancomycin HCl (Vancocin (Oral Or Rectal Use)) 250 mg PO QID [facility] PRN Reason: Protocol Last Admin: 05/20/18 09:26 Dose: 250 mg - Labs Labs: 05/20/18 07:04 05/20/18 07:04 - Constitutional Appears: Well, No Acute Distress - Head Exam Head Exam: ATRAUMATIC, NORMOCEPHALIC - Eye Exam Eye Exam: Normal appearance Pupil Exam: NORMAL ACCOMODATION - ENT Exam ENT Exam: Normal Exam - Neck Exam Neck Exam: Normal Inspection - Respiratory Exam Respiratory Exam: Clear to Ausculation Bilateral, NORMAL BREATHING PATTERN. absent: Rales, Rhonchi, Wheezes, Respiratory Distress - Cardiovascular Exam Cardiovascular Exam: REGULAR RHYTHM, +S1, +S2 - GI/Abdominal Exam GI & Abdominal Exam: Soft, Normal Bowel Sounds. absent: Guarding, Rigid, Tenderness, Organomegaly - Extremities Exam Extremities Exam: absent: Joint Swelling, Pedal Edema - Back Exam Back Exam: NORMAL INSPECTION - Neurological Exam Neurological Exam: Alert, Awake, Oriented x3 - Psychiatric Exam Psychiatric exam: Normal Affect, Normal Mood - Skin Skin Exam: Dry, Intact, Normal Color, Warm Assessment and Plan - Assessment and Plan (Free Text) Assessment: #C.diff colitis #Vomiting #Mild diffuse colitis #Gastritis #Constipation #EVIE #CAD s/p stents #DM #HTN #Prolonged QTc Plan: -Continue supportive care -CT abd/pelv findings noted for mild colitis and diverticulosis -continue abx as per ID -continue to montor stool oupt -stool cultures pending -will need outp colonoscopy in 2 months -decreased diet to clears -will continue to monitor D/W Dr. Ahmadi <Bhakti Ahmadi - Last Filed: 05/20/18 12:22> Objective - Vital Signs/Intake and Output Vital Signs (last 24 hours): Temp Pulse Resp BP Pulse Ox 98.4 F 64 18 137/70 97 05/20/18 07:50 05/20/18 07:51 05/20/18 07:50 05/20/18 09:28 05/20/18 07:50 Intake and Output: 05/20/18 05/20/18 06:59 18:59 Intake Total 1040 Balance 1040 - Medications Medications: Current Medications Amlodipine Besylate (Norvasc) 10 mg PO DAILY [facility] Last Admin: 05/20/18 09:27 Dose: 10 mg Aspirin (Aspirin) 325 mg PO DAILY [facility] Last Admin: 05/20/18 09:26 Dose: 325 mg Clopidogrel Bisulfate (Plavix) 75 mg PO DAILY [facility] Last Admin: 05/20/18 09:27 Dose: 75 mg Dextrose (Dextrose 50% Inj) 0 ml IV STAT PRN; Protocol PRN Reason: Hypoglycemia Protocol Dextrose (Glutose 15) 0 gm PO ONCE PRN; Protocol PRN Reason: Hypoglycemia Protocol Enalapril Maleate (Vasotec) 20 mg PO DAILY [facility] Last Admin: 05/20/18 09:28 Dose: 20 mg Ergocalciferol (Drisdol 50,000 Intl Units Cap) 1 cap PO QWK [facility] Glucagon (Glucagen Diagnostic Kit) 0 mg IM STAT PRN; Protocol PRN Reason: Hypoglycemia Protocol Heparin Sodium (Porcine) (Heparin) 5,000 units SC Q12 [facility] Last Admin: 05/20/18 09:27 Dose: 5,000 units Home Med (Patient's Own Medication) 1 tab PO DAILY [facility] Last Admin: 05/20/18 09:28 Dose: 1 tab Metronidazole (Flagyl) 500 mg in 100 mls @ 100 mls/hr IVPB Q8H [facility] PRN Reason: Protocol Last Admin: 05/20/18 09:26 Dose: 100 mls/hr Dextrose (Dextrose 5% In Water 1000 Ml) 1,000 mls @ 0 mls/hr IV .Q0M PRN; Protocol; Per Protocol PRN Reason: Hypoglycemia Protocol Sodium Chloride (Sodium Chloride 0.45%) 1,000 mls @ 100 mls/hr IV .Q10H [facility] Last Admin: 05/20/18 05:10 Dose: 100 mls/hr Insulin Human Regular (Novolin R) 0 unit SC ACHS [facility] PRN Reason: Protocol Last Admin: 05/20/18 08:32 Dose: 2 units Labetalol HCl (Trandate) 100 mg PO BID [facility] Last Admin: 05/20/18 09:27 Dose: 100 mg Nitroglycerin (Nitrostat Sl Tab) 0.4 mg SL Q5M PRN PRN Reason: CHEST PAIN Ondansetron HCl (Zofran Inj) 4 mg IVP Q8H PRN PRN Reason: Nausea/Vomiting Last Admin: 05/20/18 08:32 Dose: 4 mg Pantoprazole Sodium (Protonix Ec Tab) 40 mg PO DAILY [facility] Last Admin: 05/20/18 09:26 Dose: 40 mg Vancomycin HCl (Vancocin (Oral Or Rectal Use)) 250 mg PO QID [facility] PRN Reason: Protocol Last Admin: 05/20/18 09:26 Dose: 250 mg - Labs Labs: 05/20/18 07:04 05/20/18 07:04 Attending/Attestation - Attestation I have fully participated in the care of the patient.: Yes I have reviewed all pertinent clinical information, including history, physical exam and plan: Yes Notes (Text): 05/20/18 12:21 I have fully discussed patient with GI fellow. In brief, this is an 87 year old female with history of DM, HTN, obesity, CAD who presents to hospital with complaint of abdominal pain and palpitations which began 3 days ago with one episode of non-bloody diarrhea. She had a colonoscopy over 5 years ago which was normal as per patient and an EGD in 2016 which showed gastritis with intestinal metaplasia. Ct showed segmental colitis and diverticulosis. C diff positive. Will continue antibiotics. Trend fever and wbc curve and outpatient colonoscopy in 6-8 weeks
--- NOTE | 2018-05-20 14:59 | CP.PCM.PN ---
Subjective - Date & Time of Evaluation Date of Evaluation: 05/20/18 Time of Evaluation: 14:59 - Subjective Subjective: CHIEF COMPLAINTS TODAY : patient has very minimal abdominal pain. No nausea or vomiting. Stool for C. difficile is positive patient is on isolation with IV and by mouth antibiotics ROS. HEENT : N. Resp : No cough, wheezing ,pleuritic CP ,or hemoptysis Cardio : No anginal CP, PND, orthopnea, palpitation GI : No n/v ,diarrhea or GI bleeding . 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 Musculoskel : No joint swelling , Derm : No rash Psych : Normal affect. Ext : No swelling ,calf pain PE. Pt. is alert awake in no distress. V.S As noted in the chart Head ,ear nose,throat and eyes : Normal. Neck : Supple with normal carotids. Lungs: Clear air entry. Heart : S1 & S2 normal with S4. No murmur. Abd : Soft tender with normal bowel sounds. Neuro : Moves all ext. with no localized deficit. Ext : No edema with intact pulses.Non tender calves Derm : No rashes or decubitus ulcer. LABS/RADIOLOGY: ASSESSMENT/PLAN : continue IV and by mouth antibiotics. Monitor blood sugars and QT interval. urine culture pending Objective - Vital Signs/Intake and Output Vital Signs (last 24 hours): Temp Pulse Resp BP Pulse Ox 98.4 F 64 18 137/70 97 05/20/18 07:50 05/20/18 07:51 05/20/18 07:50 05/20/18 09:28 05/20/18 07:50 Intake and Output: 05/20/18 05/20/18 11:59 23:59 Intake Total 960 Output Total 900 Balance 60 - Medications Medications: Current Medications Amlodipine Besylate (Norvasc) 10 mg PO DAILY [facility] Last Admin: 05/20/18 09:27 Dose: 10 mg Aspirin (Aspirin) 325 mg PO DAILY [facility] Last Admin: 05/20/18 09:26 Dose: 325 mg Clopidogrel Bisulfate (Plavix) 75 mg PO DAILY [facility] Last Admin: 05/20/18 09:27 Dose: 75 mg Dextrose (Dextrose 50% Inj) 0 ml IV STAT PRN; Protocol PRN Reason: Hypoglycemia Protocol Dextrose (Glutose 15) 0 gm PO ONCE PRN; Protocol PRN Reason: Hypoglycemia Protocol Enalapril Maleate (Vasotec) 20 mg PO DAILY [facility] Last Admin: 05/20/18 09:28 Dose: 20 mg Ergocalciferol (Drisdol 50,000 Intl Units Cap) 1 cap PO QWK [facility] Glucagon (Glucagen Diagnostic Kit) 0 mg IM STAT PRN; Protocol PRN Reason: Hypoglycemia Protocol Heparin Sodium (Porcine) (Heparin) 5,000 units SC Q12 [facility] Last Admin: 05/20/18 09:27 Dose: 5,000 units Home Med (Patient's Own Medication) 1 tab PO DAILY [facility] Last Admin: 05/20/18 09:28 Dose: 1 tab Metronidazole (Flagyl) 500 mg in 100 mls @ 100 mls/hr IVPB Q8H [facility] PRN Reason: Protocol Last Admin: 05/20/18 09:26 Dose: 100 mls/hr Dextrose (Dextrose 5% In Water 1000 Ml) 1,000 mls @ 0 mls/hr IV .Q0M PRN; Protocol; Per Protocol PRN Reason: Hypoglycemia Protocol Sodium Chloride (Sodium Chloride 0.45%) 1,000 mls @ 100 mls/hr IV .Q10H [facility] Last Admin: 05/20/18 14:22 Dose: 100 mls/hr Insulin Human Regular (Novolin R) 0 unit SC ACHS [facility] PRN Reason: Protocol Last Admin: 05/20/18 12:46 Dose: 3 units Labetalol HCl (Trandate) 100 mg PO BID [facility] Last Admin: 05/20/18 09:27 Dose: 100 mg Nitroglycerin (Nitrostat Sl Tab) 0.4 mg SL Q5M PRN PRN Reason: CHEST PAIN Ondansetron HCl (Zofran Inj) 4 mg IVP Q8H PRN PRN Reason: Nausea/Vomiting Last Admin: 05/20/18 08:32 Dose: 4 mg Pantoprazole Sodium (Protonix Ec Tab) 40 mg PO DAILY [facility] Last Admin: 05/20/18 09:26 Dose: 40 mg Vancomycin HCl (Vancocin (Oral Or Rectal Use)) 250 mg PO QID [facility] PRN Reason: Protocol Last Admin: 05/20/18 14:21 Dose: 250 mg - Labs Labs: 05/20/18 07:04 05/20/18 07:04 Assessment and Plan (1) Colitis Status: Acute (2) CAD (coronary artery disease), [place] coronary artery Status: Acute (3) GERD with esophagitis Status: Acute (4) Diabetes 1.5, managed as type 2 Status: Chronic
[2018-05-21] MEDS: metroNIDAZOLE IV 500 mg/100 ml 500 MG/100 ML BAG IVPB SCH ×3 (01:36→18:14)
[2018-05-21] MEDS: Sodium Chloride 0.45% 1,000 ML IV SCH ×2 (01:36→11:35)
[2018-05-21 06:24] LABS: BASO # 0.1 K/uL (0.0-0.2); BASO % 0.9 % (0.0-2.0); EOS # 0.3 K/uL (0.0-0.7); EOS % 2.6 % (0.0-4.0); HEMOGLOBIN 12.3 g/dL (11.0-16.0); LYMPH # 1.1 K/uL (1.0-4.3); LYMPH % 10.2 % (20.0-40.0); MEAN CELL VOLUME 80.9 fL (81.0-99.0); MEAN CORPUSCULAR HEMOGLOBIN 27.2 pg (27.0-31.0); MEAN CORPUSCULAR HGB CONC 33.7 g/dL (33.0-37.0); MEAN PLATELET VOLUME 10.3 fL (7.2-11.7); MONO # 0.4 K/uL (0.0-0.8); NEUT # 8.7 K/uL (1.8-7.0); NEUT % 82.3 % (50.0-75.0); NRBC % 0.1 % (0.0-2.0); RBC 4.54 Mil/uL (3.80-5.20); RED CELL DISTRIBUTION WIDTH 14.8 % (11.5-14.5); WHITE BLOOD COUNT 10.6 K/uL (4.8-10.8)
[2018-05-21 06:44] LABS: ALB/GLOB RATIO 1.2 (1.0-2.1); ALBUMIN 3.5 g/dL (3.5-5.0); CALCIUM 8.4 mg/dl (8.6-10.4)
[2018-05-21] MEDS: (Novolin R) Insulin Human Regular 100 units/ml vial SC SCH ×4 (08:19→21:28)
[2018-05-21] MEDS ORDERED: Propofol 10 mg/ml Inj (20 ML) ONE (08:45)
[2018-05-21] MEDS ORDERED: Etomidate 20 mg/10ml Inj IV ONE (08:45)
--- NOTE | 2018-05-21 09:26 | CP.PCM.PN ---
Subjective - Date & Time of Evaluation Date of Evaluation: 05/21/18 Time of Evaluation: 09:23 - Subjective Subjective: Patient seen and examined, no acute events overnight. She continues to endorse mild LLQ abdominal pain and had one episode of non-bloody emesis yesterday. s/ p EGD today showing mild gastritis, otherwise no significant findings. Objective - Vital Signs/Intake and Output Vital Signs (last 24 hours): Temp Pulse Resp BP Pulse Ox 97.7 F 65 10 L 126/63 100 05/21/18 09:00 05/21/18 09:00 05/21/18 09:00 05/21/18 09:00 05/21/18 09:00 Intake and Output: 05/21/18 05/21/18 06:59 18:59 Intake Total 1040 150 Output Total 450 Balance 590 150 - Medications Medications: Current Medications Amlodipine Besylate (Norvasc) 10 mg PO DAILY [facility] Last Admin: 05/20/18 09:27 Dose: 10 mg Aspirin (Aspirin) 325 mg PO DAILY [facility] Last Admin: 05/20/18 09:26 Dose: 325 mg Clopidogrel Bisulfate (Plavix) 75 mg PO DAILY [facility] Last Admin: 05/20/18 09:27 Dose: 75 mg Dextrose (Dextrose 50% Inj) 0 ml IV STAT PRN; Protocol PRN Reason: Hypoglycemia Protocol Dextrose (Glutose 15) 0 gm PO ONCE PRN; Protocol PRN Reason: Hypoglycemia Protocol Enalapril Maleate (Vasotec) 20 mg PO DAILY [facility] Last Admin: 05/20/18 09:28 Dose: 20 mg Ergocalciferol (Drisdol 50,000 Intl Units Cap) 1 cap PO QWK [facility] Glucagon (Glucagen Diagnostic Kit) 0 mg IM STAT PRN; Protocol PRN Reason: Hypoglycemia Protocol Home Med (Patient's Own Medication) 1 tab PO DAILY [facility] Last Admin: 05/20/18 09:28 Dose: 1 tab Metronidazole (Flagyl) 500 mg in 100 mls @ 100 mls/hr IVPB Q8H [facility] PRN Reason: Protocol Last Admin: 05/21/18 01:36 Dose: 100 mls/hr Sodium Chloride (Sodium Chloride 0.45%) 1,000 mls @ 100 mls/hr IV .Q10H [facility] Last Admin: 05/21/18 01:36 Dose: 100 mls/hr Insulin Human Regular (Novolin R) 0 unit SC ACHS [facility] PRN Reason: Protocol Last Admin: 05/21/18 08:19 Dose: Not Given Labetalol HCl (Trandate) 100 mg PO BID [facility] Last Admin: 05/20/18 17:20 Dose: 100 mg Nitroglycerin (Nitrostat Sl Tab) 0.4 mg SL Q5M PRN PRN Reason: CHEST PAIN Ondansetron HCl (Zofran Inj) 4 mg IVP Q8H PRN PRN Reason: Nausea/Vomiting Last Admin: 05/21/18 05:52 Dose: 4 mg Pantoprazole Sodium (Protonix Ec Tab) 40 mg PO DAILY [facility] Last Admin: 05/20/18 09:26 Dose: 40 mg Potassium Chloride (K-Dur 20 Meq Er Tab) 40 meq PO DAILY [facility] Stop: 05/23/18 10:01 Vancomycin HCl (Vancocin (Oral Or Rectal Use)) 250 mg PO QID [facility] PRN Reason: Protocol Last Admin: 05/20/18 21:51 Dose: 250 mg - Labs Labs: 05/21/18 06:08 05/21/18 06:08 Assessment and Plan - Assessment and Plan (Free Text) Assessment: CAD on plavix DM / HTN Abdominal pain - c-difficile colitis s/p EGD today showing gastritis, otherwise no significant abnormalities Plan: - Continue with oral vancomycin and antibiotic therapy as per ID - Advance diet as tolerated - Follow up EGD biopsy results - Anti-emetic therapy PRN - No further planned GI interventions, will sign off case. Patient would benefit from elective outpatient colonoscopy 6-8 weeks following resolution of colitis. Please reconsult as necessary, thank you.
[2018-05-21] MEDS: Potassium Chloride 20 mEq ER Tab PO SCH (11:28)
[2018-05-21] MEDS: Pantoprazole 40 mg EC Tab PO SCH (11:29)
[2018-05-21] MEDS: Vancomycin 125 MG/5 ML SOLN (ORAL/RECTAL) PO SCH ×4 (11:32→21:47)
--- NOTE | 2018-05-21 13:57 | CP.PCM.PN ---
Subjective - Date & Time of Evaluation Date of Evaluation: 05/21/18 Time of Evaluation: 13:57 - Subjective Subjective: CHIEF COMPLAINTS TODAY : patient has very minimal abdominal pain. No nausea or vomiting. Stool for C. difficile is positive patient is on isolation with IV and by mouth antibiotics EGD was done this morning, no acute findings. ROS. HEENT : N. Resp : No cough, wheezing ,pleuritic CP ,or hemoptysis Cardio : No anginal CP, PND, orthopnea, palpitation GI : No n/v ,diarrhea or GI bleeding . 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 Musculoskel : No joint swelling , Derm : No rash Psych : Normal affect. Ext : No swelling ,calf pain PE. Pt. is alert awake in no distress. V.S As noted in the chart Head ,ear nose,throat and eyes : Normal. Neck : Supple with normal carotids. Lungs: Clear air entry. Heart : S1 & S2 normal with S4. No murmur. Abd : Soft tender with normal bowel sounds. Neuro : Moves all ext. with no localized deficit. Ext : No edema with intact pulses.Non tender calves Derm : No rashes or decubitus ulcer. LABS/RADIOLOGY: ASSESSMENT/PLAN : continue IV and by mouth antibiotics. Monitor blood sugars and QT interval. urine culture pending Objective - Vital Signs/Intake and Output Vital Signs (last 24 hours): Temp Pulse Resp BP Pulse Ox 97.7 F 59 L 15 123/69 100 05/21/18 09:30 05/21/18 09:30 05/21/18 09:30 05/21/18 11:28 05/21/18 09:30 Intake and Output: 05/21/18 05/21/18 11:59 23:59 Intake Total 250 Output Total 200 Balance 50 - Medications Medications: Current Medications Amlodipine Besylate (Norvasc) 10 mg PO DAILY [facility] Last Admin: 05/21/18 11:28 Dose: 10 mg Aspirin (Aspirin) 325 mg PO DAILY [facility] Last Admin: 05/21/18 11:28 Dose: 325 mg Clopidogrel Bisulfate (Plavix) 75 mg PO DAILY [facility] Last Admin: 05/21/18 11:28 Dose: 75 mg Dextrose (Dextrose 50% Inj) 0 ml IV STAT PRN; Protocol PRN Reason: Hypoglycemia Protocol Dextrose (Glutose 15) 0 gm PO ONCE PRN; Protocol PRN Reason: Hypoglycemia Protocol Enalapril Maleate (Vasotec) 20 mg PO DAILY [facility] Last Admin: 05/21/18 11:28 Dose: 20 mg Ergocalciferol (Drisdol 50,000 Intl Units Cap) 1 cap PO QWK [facility] Glucagon (Glucagen Diagnostic Kit) 0 mg IM STAT PRN; Protocol PRN Reason: Hypoglycemia Protocol Home Med (Patient's Own Medication) 1 tab PO DAILY [facility] Last Admin: 05/21/18 11:29 Dose: 1 tab Metronidazole (Flagyl) 500 mg in 100 mls @ 100 mls/hr IVPB Q8H [facility] PRN Reason: Protocol Last Admin: 05/21/18 11:33 Dose: 100 mls/hr Sodium Chloride (Sodium Chloride 0.45%) 1,000 mls @ 100 mls/hr IV .Q10H [facility] Last Admin: 05/21/18 11:35 Dose: Not Given Insulin Human Regular (Novolin R) 0 unit SC ACHS [facility] PRN Reason: Protocol Last Admin: 05/21/18 12:07 Dose: 6 units Labetalol HCl (Trandate) 100 mg PO BID [facility] Last Admin: 05/21/18 10:20 Dose: Not Given Nitroglycerin (Nitrostat Sl Tab) 0.4 mg SL Q5M PRN PRN Reason: CHEST PAIN Ondansetron HCl (Zofran Inj) 4 mg IVP Q8H PRN PRN Reason: Nausea/Vomiting Last Admin: 05/21/18 05:52 Dose: 4 mg Pantoprazole Sodium (Protonix Ec Tab) 40 mg PO DAILY [facility] Last Admin: 05/21/18 11:29 Dose: 40 mg Potassium Chloride (K-Dur 20 Meq Er Tab) 40 meq PO DAILY [facility] Stop: 05/23/18 10:01 Last Admin: 05/21/18 11:28 Dose: 40 meq Vancomycin HCl (Vancocin (Oral Or Rectal Use)) 250 mg PO QID [facility] PRN Reason: Protocol Last Admin: 05/21/18 11:32 Dose: 250 mg - Labs Labs: 05/21/18 06:08 05/21/18 06:08 Assessment and Plan (1) Colitis Status: Acute (2) CAD (coronary artery disease), [place] coronary artery Status: Acute (3) GERD with esophagitis Status: Acute (4) Diabetes 1.5, managed as type 2 Status: Chronic
--- NOTE | 2018-05-21 14:05 | CP.PCM.PN ---
Subjective - Date & Time of Evaluation Date of Evaluation: 05/21/18 Time of Evaluation: 14:05 - Subjective Subjective: CHIEF COMPLAINTS TODAY : AFEBRILE S/P EGD TODAY - FINDINGS NOTED C/O MILD LEFT LOWER QUADRANT PAIN. ONE EPISODE OF NON BILIOUS VOMITING YESTERDAY Stool for C. difficile +VE ROS. HEENT : N. Resp : No cough, wheezing ,pleuritic CP ,or hemoptysis Cardio : No anginal CP, PND, orthopnea, palpitation GI : No n/v ,diarrhea or GI bleeding . [employer] : No headache, vertigo, focal deficit. Musculoskel : No joint swelling , Derm : No rash Psych : Normal affect. Ext : No swelling ,calf pain PE. Pt. is alert awake in no distress. V.S As noted in the chart Head ,ear nose,throat and eyes : Normal. Neck : Supple with normal carotids. Lungs: Clear air entry. Heart : S1 & S2 normal with S4. No murmur. Abd : SOFT, MILD TENDERNESS MID ABDOMEN AND LEFT LOWER QUADRANT, normal bowel sounds. Neuro : Moves all ext. with no localized deficit. Ext : No edema with intact pulses.Non tender calves Derm : No rashes or decubitus ulcer. LABS/RADIOLOGY: REVIEWED URINE CULTURE 05/17/18 -GNR( ?) BLOOD CULTURE -VE Objective - Vital Signs/Intake and Output Vital Signs (last 24 hours): Temp Pulse Resp BP Pulse Ox 97.7 F 59 L 15 123/69 100 05/21/18 09:30 05/21/18 09:30 05/21/18 09:30 05/21/18 11:28 05/21/18 09:30 Intake and Output: 05/21/18 05/21/18 06:59 18:59 Intake Total 1040 250 Output Total 450 200 Balance 590 50 - Medications Medications: Current Medications Amlodipine Besylate (Norvasc) 10 mg PO DAILY [facility] Last Admin: 05/21/18 11:28 Dose: 10 mg Aspirin (Aspirin) 325 mg PO DAILY [facility] Last Admin: 05/21/18 11:28 Dose: 325 mg Clopidogrel Bisulfate (Plavix) 75 mg PO DAILY [facility] Last Admin: 05/21/18 11:28 Dose: 75 mg Dextrose (Dextrose 50% Inj) 0 ml IV STAT PRN; Protocol PRN Reason: Hypoglycemia Protocol Dextrose (Glutose 15) 0 gm PO ONCE PRN; Protocol PRN Reason: Hypoglycemia Protocol Enalapril Maleate (Vasotec) 20 mg PO DAILY [facility] Last Admin: 05/21/18 11:28 Dose: 20 mg Ergocalciferol (Drisdol 50,000 Intl Units Cap) 1 cap PO QWK [facility] Glucagon (Glucagen Diagnostic Kit) 0 mg IM STAT PRN; Protocol PRN Reason: Hypoglycemia Protocol Home Med (Patient's Own Medication) 1 tab PO DAILY [facility] Last Admin: 05/21/18 11:29 Dose: 1 tab Metronidazole (Flagyl) 500 mg in 100 mls @ 100 mls/hr IVPB Q8H [facility] PRN Reason: Protocol Last Admin: 05/21/18 11:33 Dose: 100 mls/hr Sodium Chloride (Sodium Chloride 0.45%) 1,000 mls @ 100 mls/hr IV .Q10H [facility] Last Admin: 05/21/18 11:35 Dose: Not Given Insulin Human Regular (Novolin R) 0 unit SC ACHS [facility] PRN Reason: Protocol Last Admin: 05/21/18 12:07 Dose: 6 units Labetalol HCl (Trandate) 100 mg PO BID [facility] Last Admin: 05/21/18 10:20 Dose: Not Given Nitroglycerin (Nitrostat Sl Tab) 0.4 mg SL Q5M PRN PRN Reason: CHEST PAIN Ondansetron HCl (Zofran Inj) 4 mg IVP Q8H PRN PRN Reason: Nausea/Vomiting Last Admin: 05/21/18 05:52 Dose: 4 mg Pantoprazole Sodium (Protonix Ec Tab) 40 mg PO DAILY [facility] Last Admin: 05/21/18 11:29 Dose: 40 mg Potassium Chloride (K-Dur 20 Meq Er Tab) 40 meq PO DAILY [facility] Stop: 05/23/18 10:01 Last Admin: 05/21/18 11:28 Dose: 40 meq Vancomycin HCl (Vancocin (Oral Or Rectal Use)) 250 mg PO QID [facility] PRN Reason: Protocol Last Admin: 05/21/18 11:32 Dose: 250 mg - Labs Labs: 05/21/18 06:08 05/21/18 06:08 Assessment and Plan (1) Colitis Assessment & Plan: Stool for C. difficile toxin +VE ON BY MOUTH VANCOMYCIN 250 BY MOUTH 4 TIMES A DAY 05/19/18 [id number] Continue IV Flagyl 500 IV piggyback every 8 hourly. 05/18/18 Status: Acute (2) Abdominal pain Assessment & Plan: MILD LLQ PAIN . F/U CLOSELY. WATCH H/H. Status: Acute (3) Diabetes 1.5, managed as type 2 Status: Chronic (4) Chronic renal insufficiency Status: Acute (5) UTI (urinary tract infection) Assessment & Plan: URINE CULTURE 05/17/18 --GNR ? PT ASYMPTOMATIC. WILL OBSERVE AND RECULTURE -CLEAN CATCH. Status: Acute
[2018-05-21 16:51] VITALS: RESP 20; O2SAT 96
[2018-05-22] MEDS: metroNIDAZOLE IV 500 mg/100 ml 500 MG/100 ML BAG IVPB SCH ×3 (01:49→17:18)
[2018-05-22] MEDS: (Novolin R) Insulin Human Regular 100 units/ml vial SC SCH ×3 (08:20→16:57)
[2018-05-22] MEDS: Vancomycin 125 MG/5 ML SOLN (ORAL/RECTAL) PO SCH ×3 (10:13→17:18)
[2018-05-22] MEDS: Pantoprazole 40 mg EC Tab PO SCH (10:14)
[2018-05-22] MEDS: Potassium Chloride 20 mEq ER Tab PO SCH (10:14)
--- NOTE | 2018-05-22 13:52 | CP.PCM.DIS ---
Provider - Provider Date of Admission: 05/18/18 15:04 Attending physician: Misty Castillo MD Time Spent in preparation of Discharge (in minutes): 35 Diagnosis - Discharge Diagnosis (1) Colitis Status: Acute (2) CAD (coronary artery disease), [place] coronary artery Status: Acute (3) GERD with esophagitis Status: Acute (4) Diabetes 1.5, managed as type 2 Status: Chronic Hospital Course - Lab Results Lab Results: Micro Results 05/18/18 20:52 Stool Ova and Parasite Concentrate Exam - Final 05/18/18 20:52 Stool Stool Culture - Final NO SALMONELLA, SHIGELLA OR CAMPYLOBACTER ISOLATED. 05/17/18 11:17 Urine,Clean Catch Urine Culture - Final Gram Negative Martin Most Recent Lab Values WBC 10.6 K/uL (4.8-10.8) 05/21/18 06:08 RBC 4.54 Mil/uL (3.80-5.20) 05/21/18 06:08 Hgb 12.3 g/dL (11.0-16.0) 05/21/18 06:08 Hct 36.7 % (34.0-47.0) 05/21/18 06:08 MCV 80.9 fL (81.0-99.0) L 05/21/18 06:08 MCH 27.2 pg (27.0-31.0) 05/21/18 06:08 MCHC 33.7 g/dL (33.0-37.0) 05/21/18 06:08 RDW 14.8 % (11.5-14.5) H 05/21/18 06:08 Plt Count 213 K/uL (130-400) 05/21/18 06:08 MPV 10.3 fL (7.2-11.7) 05/21/18 06:08 Neut % (Auto) 82.3 % (50.0-75.0) H 05/21/18 06:08 Lymph % (Auto) 10.2 % (20.0-40.0) L 05/21/18 06:08 [place] % (Auto) 4.0 % (0.0-10.0) 05/21/18 06:08 Eos % (Auto) 2.6 % (0.0-4.0) 05/21/18 06:08 Baso % (Auto) 0.9 % (0.0-2.0) 05/21/18 06:08 Neut # (Auto) 8.7 K/uL (1.8-7.0) H 05/21/18 06:08 Lymph # (Auto) 1.1 K/uL (1.0-4.3) 05/21/18 06:08 [place] # (Auto) 0.4 K/uL (0.0-0.8) 05/21/18 06:08 Eos # (Auto) 0.3 K/uL (0.0-0.7) 05/21/18 06:08 Baso # (Auto) 0.1 K/uL (0.0-0.2) 05/21/18 06:08 Neutrophils % (Manual) 91 % (50-75) H 05/20/18 07:04 Band Neutrophils % 1 % (0-2) 05/19/18 06:55 Lymphocytes % (Manual) 6 % (20-40) L 05/20/18 07:04 Monocytes % (Manual) 2 % (0-10) 05/20/18 07:04 Eosinophils % (Manual) 1 % (0-4) 05/20/18 07:04 Basophils % (Manual) 1 % (0-2) 05/19/18 06:55 Toxic Granulation Present 05/19/18 06:55 Platelet Estimate Normal (NORMAL) 05/20/18 07:04 Large Platelets Present 05/19/18 06:55 RBC Morphology Normal 05/20/18 07:04 Anisocytosis (manual) Slight 05/19/18 06:55 Sodium 139 mmol/L (132-148) 05/21/18 06:08 Potassium 3.4 mmol/L (3.6-5.2) L 05/21/18 06:08 Chloride 104 mmol/L (98-107) 05/21/18 06:08 Carbon Dioxide 22 mmol/L (22-30) 05/21/18 06:08 Anion Gap 16 (10-20) 05/21/18 06:08 BUN 8 mg/dL (7-17) 05/21/18 06:08 Creatinine 1.2 mg/dL (0.7-1.2) 05/21/18 06:08 Est GFR ( Amer) 51 05/21/18 06:08 Est GFR (Non-Af Amer) 42 05/21/18 06:08 POC Glucose (mg/dL) 340 mg/dL (65-110) H 05/22/18 11:21 Random Glucose 151 mg/dL (65-105) H 05/21/18 06:08 Calcium 8.4 mg/dl (8.6-10.4) L 05/21/18 06:08 Total Bilirubin 0.5 mg/dL (0.2-1.3) 05/21/18 06:08 AST 48 U/L (14-36) H D 05/21/18 06:08 ALT 32 U/L (9-52) 05/21/18 06:08 Alkaline Phosphatase 92 U/L (38-126) 05/21/18 06:08 Total Creatine Kinase 47 U/L (30-135) 05/18/18 13:53 CK-MB (Mass) 0.86 ng/mL (0.0-3.38) 05/18/18 13:53 Troponin I < 0.0120 ng/mL (0.00-0.120) 05/18/18 13:53 Total Protein 6.5 g/dL (6.3-8.3) 05/21/18 06:08 Albumin 3.5 g/dL (3.5-5.0) 05/21/18 06:08 Globulin 3.0 gm/dL (2.2-3.9) 05/21/18 06:08 Albumin/Globulin Ratio 1.2 (1.0-2.1) 05/21/18 06:08 Urine Color Straw (YELLOW) 05/17/18 11:17 Urine Clarity Clear (Clear) 05/17/18 11:17 Urine pH 6.0 (5.0-8.0) 05/17/18 11:17 Ur Specific [place] 1.005 (1.003-1.030) 05/17/18 11:17 Urine Protein Negative mg/dL (NEGATIVE) 05/17/18 11:17 Urine Glucose (UA) Normal mg/dL (Normal) 05/17/18 11:17 Urine Ketones Negative mg/dL (NEGATIVE) 05/17/18 11:17 Urine Blood Negative (NEGATIVE) 05/17/18 11:17 Urine Nitrate Negative (NEGATIVE) 05/17/18 11:17 Urine Bilirubin Negative (NEGATIVE) 05/17/18 11:17 Urine Urobilinogen Normal mg/dL (0.2-1.0) 05/17/18 11:17 Ur Leukocyte Esterase Neg Unique/uL (Negative) 05/17/18 11:17 Urine WBC (Auto) 2 /hpf (0-5) 05/17/18 11:17 Urine RBC (Auto) < 1 /hpf (0-3) 05/17/18 11:17 Ur Squamous Epith Cells 1 /hpf (0-5) 05/17/18 11:17 C. difficile Ag & Toxin Positive (NEGATIVE) H 05/18/18 20:52 - Hospital Course Hospital Course: Patient is admitted for abdominal pain left lower quadrant. Last few days patient been complaining of left lower quadrant pain radiating diffusely to rest of the abdomen sedated with constipation increased gas and belching. Patient is also complaining of some atypical epigastric and retrosternal chest discomfort. Patient was evaluated in the emergency room Can of the abdomen showed colitis in the descending colon. workup in the hospital showed patient has C. difficile in the stool. Patient was put on IV Flagyl and by mouth Vanco and patient improved on above therapy there is no further pain or discomfort patient had an upper GI symptoms. Prior to discharge patient had a EGD done which did not reveal any abnormality. After discussing with the GI and ID patient will be discharged on by mouth medication and will be followed as an outpatient and later date will have a colonoscopy. . Discharge Exam - Head Exam Head Exam: ATRAUMATIC, NORMOCEPHALIC Discharge Plan - Follow Up Plan Condition: STABLE Disposition: HOME/ ROUTINE
--- NOTE | 2018-05-22 14:45 | CARD ---
APPROVED REPORT Date of service: 05/19/2018 EKG Measurement Heart [id number] <Conclusion> Sinus bradycardia Left ventricular hypertrophy with repolarization abnormality Abnormal ECG
[2018-05-22 15:53] VITALS: BP 132/69; TEMP 97.8
[2018-05-22 16:46] VITALS: PULSE 70
[2018-05-24] MEDS ORDERED: Ergocalciferol 50,000 Intl Units Cap PO SCH (10:00)
== END 2018-05-22 18:16 | disposition home or self-care (01) | DRG 372 ==
LOC: C.ER 09:52 → C.9E 15:58 → C.3T 16:45 → OBSVTOIN 05-18 15:04 → C.5S 05-18 15:50 → C.6T 05-18 16:04
PROVIDERS: ADMIT Internal Medicine Cardiovascular Disease; ATTEND Internal Medicine Cardiovascular Disease
PROC: 0DB68ZX Excision of Stomach, Via Natural or Artificial Opening Endoscopic, Diagnostic (ICD-10-PCS; principal; 2018-05-21 08:40)
DX: A04.72 Enterocolitis due to Clostridium difficile, not specified as recurrent (principal); N18.4 Chronic kidney disease, stage 4 (severe); N17.9 Acute kidney failure, unspecified; E11.22 Type 2 diabetes mellitus with diabetic chronic kidney disease; I12.9 Hypertensive chronic kidney disease with stage 1 through stage 4 chronic kidney disease, or unspecified chronic kidney disease; I25.10 Atherosclerotic heart disease of native coronary artery without angina pectoris; I45.81 Long QT syndrome; J44.9 Chronic obstructive pulmonary disease, unspecified; K57.90 Diverticulosis of intestine, part unspecified, without perforation or abscess without bleeding; K59.00 Constipation, unspecified; Z87.891 Personal history of nicotine dependence; Z88.0 Allergy status to penicillin; Z95.5 Presence of coronary angioplasty implant and graft; K29.70 Gastritis, unspecified, without bleeding; K21.0 Gastro-esophageal reflux disease with esophagitis; E66.9 Obesity, unspecified

== ENCOUNTER 2018-11-02 09:22 | Outpatient (CLI) | payer MEDICARE, MEDICAID | END 2018-11-02 09:23 | disposition home or self-care (01) | LOC: C.LAB 09:22 | DX: D64.9 Anemia, unspecified (principal); R07.9 Chest pain, unspecified; I11.9 Hypertensive heart disease without heart failure; E11.9 Type 2 diabetes mellitus without complications; M81.8 Other osteoporosis without current pathological fracture ==

== ENCOUNTER 2018-11-28 14:22 | Observation (INO) | payer MEDICARE, MEDICAID ==
[2018-11-28 14:23] VITALS: BMI 29.4
--- NOTE | 2018-11-28 15:07 | C.PDOC ---
History Of Present Illness via trans HTN ONSET SINCE LAST NIGHT. SBP 140-210/70-90. COMPLIANT W HTN MEDS. NO ASSOC CP, NV, DIZZY. ?CP BUT CURRENTLY ASYMPT. ALSO CO "FEELING PHLEGM" WHEN EATS. NO NV, WT LOSS. HO GASTRITIS, COMPLIANT W GI MEDS PMHx - CAD, HTN, DM PSHx - , cardiac stents, lap dominique, EGD 2016 - gastritis, intestinal metaplasia. FMHx - None SocHx - Previous heavy smoker. denies alcohol. lives at home. EXAM NEG Time Seen by Provider: 11/28/18 14:49 Chief Complaint (Nursing): High Blood Pressure History Per: Patient History/Exam Limitations: no limitations Onset/Duration Of Symptoms: Days Current Symptoms Are (Timing): Still Present Past Medical History Reviewed: Historical Data, Nursing Documentation, Vital Signs Vital Signs: Last Vital Signs Temp 97.3 F L 11/28/18 14:28 Pulse 59 L 11/28/18 14:28 Resp 18 11/28/18 14:28 BP 218/102 H 11/28/18 14:28 Pulse Ox 99 11/28/18 14:28 - Medical History PMH: CAD, COPD, Gall Bladder Disease, HTN, Hypercholesterolemia Denies: Chronic Kidney Disease Surgical History: Cholecystectomy, Coronary Stent, - [facility] Procedures DILATION OF 1 COR ART WITH 2 DRUG-ELUT, PERC APPROACH (01/17/17) DILATION OF 1 COR ART WITH DRUG-ELUT INTRA, PERC APPROACH (01/17/17) EXCISION OF STOMACH, ENDO, DIAGN (05/18/18) FLUOROSCOPY OF LEFT HEART USING LOW OSMOLAR CONTRAST (01/17/17) MEASURE OF CARDIAC SAMPL & PRESSURE, L HEART, PERC APPROACH (01/17/17) OTHER ENDOSCOPY OF SM INTEST (01/02/14) RADIOGRAPHY OF GALLBLADDER & BILE DUCT USING L OSM CONTRAST (11/21/15) RESECTION OF GALLBLADDER, PERCUTANEOUS ENDOSCOPIC APPROACH (11/21/15) ULTRASONOGRAPHY OF GALLBLADDER AND BILE DUCTS (11/19/15) Family History: States: No Known Family Hx - Social History Hx Tobacco Use: No Hx Alcohol Use: No Hx Substance Use: No - Immunization History Hx Tetanus Toxoid Vaccination: Yes Hx Influenza Vaccination: Yes Hx Pneumococcal Vaccination: Yes Review Of Systems Except As Marked, All Systems Reviewed And Found Negative. Constitutional: Positive for: Other (high blood pressure). Negative for: Fever, Chills, Weight loss Cardiovascular: Negative for: Chest Pain Gastrointestinal: Negative for: Nausea, Vomiting Neurological: Negative for: Dizziness Physical Exam - Physical Exam Appears: Non-toxic, No Acute Distress Skin: Normal Color, Warm, Dry Head: Atraumatic, Normacephalic Eye(s): bilateral: Normal Inspection Nose: Normal Oral Mucosa: Moist Neck: Supple Chest: Symmetrical Cardiovascular: Rhythm Regular Respiratory: Normal Breath Sounds, No Rales, No Rhonchi, No Wheezing Neurological/Psych: Oriented x3, Normal Speech ED Course And Treatment - Laboratory Results Result Diagrams: 11/28/18 15:20 11/28/18 15:20 ECG: Interpreted By Me ECG Rhythm: Sinus Bradycardia ECG Interpretation: No Acute Changes Rate From EC O2 Sat by Pulse Oximetry: 99 (RA) Pulse Ox Interpretation: Normal Progress - Re-Evaluation Re-evaluation Note: 11/28/18 15:18 D/W DR MOHAN AWARE OF ER FINDINGS. WILL ADMIT 11/28/18 15:55 ADVISED BY RN NO HYDRALAZINE AVAIL PER PHARMACY. WILL DOSE NG - Data Reviewed Data Reviewed: Lab, Diagnostic imaging, EKG, Old records Medical Decision Making Medical Decision Making: Plan: --Labs --EKG --CXR --Hydralazine IV Disposition Counseled Patient/Family Regarding: Studies Performed, Diagnosis - Disposition Disposition: HOSPITALIZED Disposition Time: 15:19 Condition: STABLE Forms: [facility] (Cameroonian) - POA Present On Arrival: None - Clinical Impression Clinical Impression: Hypertensive urgency - Scribe Statement The provider has reviewed the documentation as recorded by the Oli Juarez Provider Attestation: All medical record entries made by the Oli were at my direction and personally dictated by me. I have reviewed the chart and agree that the record accurately reflects my personal performance of the history, physical exam, medical decision making, and the department course for this patient. I have also personally directed, reviewed, and agree with the discharge instructions and disposition.
[2018-11-28 15:27] LABS: BASO # 0.1 K/uL (0.0-0.2); EOS # 0.1 K/uL (0.0-0.7); EOS % 1.1 % (0.0-4.0); LYMPH # 0.9 K/uL (1.0-4.3); LYMPH % 7.2 % (20.0-40.0); MEAN CELL VOLUME 82.6 fL (81.0-99.0); MEAN CORPUSCULAR HEMOGLOBIN 27.1 pg (27.0-31.0); MEAN CORPUSCULAR HGB CONC 32.8 g/dL (33.0-37.0); MONO # 0.4 K/uL (0.0-0.8); NEUT # 11.3 K/uL (1.8-7.0); NEUT % 87.7 % (50.0-75.0); NRBC % 0.1 % (0.0-2.0); PLATELET COUNT 234 K/uL (130-400); RBC 5.55 Mil/uL (3.80-5.20); RED CELL DISTRIBUTION WIDTH 14.3 % (11.5-14.5); WHITE BLOOD COUNT 12.9 K/uL (4.8-10.8)
--- NOTE | 2018-11-28 15:41 | RAD ---
Date of service: 11/28/2018 PROCEDURE: CHEST RADIOGRAPH, 1 VIEW HISTORY: HTN COMPARISON: None available. FINDINGS: LUNGS: The lungs are well inflated and clear. PLEURA: No pneumothorax or pleural effusion. CARDIOVASCULAR: The heart is normal in size. There is unfolding of the aorta. There are aortic atherosclerotic calcifications present. OSSEOUS STRUCTURES: Within normal limits for the patient's age. VISUALIZED UPPER ABDOMEN: Normal. OTHER FINDINGS: None. IMPRESSION: No active pulmonary disease. No acute findings.
[2018-11-28 15:46] LABS: LARGE PLATELETS PRESENT; LYMPHOCYTE 7 % (20-40); MONOCYTE 5 % (0-10); NEUTROPHIL 88 % (50-75); PLATELET ESTIMATE NORMAL (NORMAL); TOTAL CELLS COUNTED 100
[2018-11-28 15:47] LABS: BLOOD UREA NITROGEN 18 mg/dL (7-17); CALCIUM 9.2 mg/dl (8.6-10.4); GFR NON-AFRICAN AMERICAN > 60
--- NOTE | 2018-11-28 16:55 | CP.PCM.HP ---
History of Present Illness - History of Present Illness History of Present Illness: COMPREHENSIVE CONSULT HPI Patient woke up this morning complaining of palpitation chest discomfort and lightheadedness. Patient frequently to her blood pressure since last night and has been elevated in the range of 200 systolic and more than 100 diastolic millimeters of mercury. Patient presented to the emergency room preliminary workup was negative and patient is admitted for further observation PAST HIST. 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 N Alcohol. N Allergy N Travel_- . FAMILY HIST : ROS : Constitutional: Negative for weight change, chills, night sweats, fatigue and usage of assist device. Eyes: Negative for redness, swelling, itching, discharge, vision changes, blurry vision, double vision, glaucoma, cataracts, Ears: Negative for hearing loss, ringing, , tinnitus, vertigo Nose: Negative for rhinorrhea, stuffiness, sniffing, itching, postnasal drip, discoloration, nasal congestion and epistaxis. Throat: Negative for throat clearing, sore throat, hoarseness, difficulty swallowing and difficulty speaking. Respiratory: Negative for cough, , sputum production, chest tightness, wheezing, pleuritic chest pain ,daytime somnolence, chronic cough, hemoptysis, snoring at night, Cardiovascular: There is no definite history of PND orthopnea or edema of legs Neurology: Negative for irritability, muscle weakness, numbness and tingling, seizures, tremors, migraines, slurred speech, syncope, memory loss, mood changes, recurrent headaches Gastrointestinal: Negative for difficulty swallowing, diarrhea, constipation, b lack stools, rectal bleeding, nausea, flatulence, reflux, poor appetite, changes in bowel habits, abdominal pain Genitourinary: Negative for frequent urination, hematuria, discharge, incontinence, urinary retention, frequent UTI, Psychiatric: Negative for depression, anxiety/panic, suicidal tendencies, Musculoskeletal: Negative for swollen joints, back pain, , neck pain, morning stiffness of joints, . Skin: Negative for rash, ulcers, itching, dry skin and pigmented lesions. P/E: Constitutional: Appears stated age and in no apparent distress. Head: Normocephalic. Ears: External ear canals patent without inflammation. Tympanic membranes intact with normal light reflex and landmark. Eyes: Pupils are central, bilaterally equal, symmetrical and reacts to light with normal movements and no icterus or pallor. Nose: External nares are patent. Mucosa is pink Mouth-Throat: Good general appearance and condition. No post-pharyngeal/oropharyngeal erythema and tonsillar hypertrophy. Good dental hygiene. Neck-Lymphatic: Neck is supple with normal ROM, no thyromegaly, lymph nodes or masses. JVD is normal with no carotid bruit. Lungs: Clear to percussion and auscultation with bilateral normal air entry. Cardiovascular: S1 and S2 are normal with no murmurs, gallops and rub. GI Exam: No hepatomegaly. Abdomen is soft and non-tender. No Organomegaly , masses or hernias are evident and bowel sounds are normal and active. Neurology: Higher function and all cranial nerves intact, with no gross motor or sensory deficit. Superficial and deep reflexes are normal with downwards planters. No cerebellar deficit with normal gait. Musculoskeletal: No tender spots with normal curvature of the spine with no swelling or restricted ROM of the small and large joints. Extremities: Homans sign absent. Intact pulses with no pitting edema, calf tenderness or skin color changes. Skin: No rash, eruptions or abnormal skin pigmentation LAB/RADIOLOGY: ASSESMENT : Accelerated hypertension with chest pain and palpitation rule out coronary insufficiency. Diabetes stable Intermittent exacerbation of reflux esophagitis and hiatal hernia PLAN: Patient will be admitted in the hospital on telemetric cardiac enzymes every 8 hours 3. Present on Admission - Present on Admission Any Indicators Present on Admission: No Past Patient History - Infectious Disease Hx of Infectious Diseases: None - Past Medical History & Family History Past Medical History?: Yes - Past Social History Smoking Status: Former Smoker - CARDIAC Hx Hypercholesterolemia: Yes Hx Hypertension: Yes - PULMONARY Hx Chronic Obstructive Pulmonary Disease (COPD): Yes - NEUROLOGICAL Hx Neurological Disorder: No - HEENT Hx HEENT Problems: Yes Hx Cataracts: Yes (BILAT.) Other/Comment: Difficult hearing - RENAL Hx Chronic Kidney Disease: No - ENDOCRINE/METABOLIC Hx Diabetes Mellitus Type 2: Yes - HEMATOLOGICAL/ONCOLOGICAL Hx Blood Disorders: No - INTEGUMENTARY Hx Dermatological Problems: No - MUSCULOSKELETAL/RHEUMATOLOGICAL Hx Musculoskeletal Disorders: Yes Hx Degenerative Joint Disease: Yes Hx Falls: Yes - GASTROINTESTINAL Hx Gall Bladder Disease: Yes - GENITOURINARY/GYNECOLOGICAL Hx Genitourinary Disorders: No Other/Comment: TUBAL LIGATION,CEASEREAN X 2 - PSYCHIATRIC Hx Substance Use: No - SURGICAL HISTORY Hx Cholecystectomy: Yes Hx Coronary Stent: Yes - ANESTHESIA Hx Anesthesia: Yes Hx Anesthesia Reactions: No Hx Malignant Hyperthermia: No Meds Allergies/Adverse Reactions: Allergies Allergy/AdvReac Type Severity Reaction Status Date / Time cephalexin Allergy Intermediate RASH Verified 04/24/18 09:55 Penicillins Allergy Intermediate RASH Verified 04/24/18 09:55 lactose Allergy Mild ABDOMINAL Verified 04/24/18 09:55 DISCOMFORT Results - Vital Signs Recent Vital Signs: Last Vital Signs Temp 98 F 11/28/18 16:17 Pulse 60 11/28/18 16:17 Resp 18 11/28/18 16:17 BP 147/88 11/28/18 16:17 Pulse Ox 92 L 11/28/18 16:17 - Labs Result Diagrams: 11/29/18 06:36 11/29/18 06:36 Labs: Laboratory Results - last 24 hr 11/28/18 11/28/18 11/28/18 14:27 15:20 15:20 WBC 12.9 H RBC 5.55 H Hgb 15.0 Hct 45.8 MCV 82.6 MCH 27.1 MCHC 32.8 L RDW 14.3 Plt Count 234 MPV 10.0 Neut % (Auto) 87.7 H Lymph % (Auto) 7.2 L Spencer % (Auto) 3.0 Eos % (Auto) 1.1 Baso % (Auto) 1.0 Neut # (Auto) 11.3 H Lymph # (Auto) 0.9 L Spencer # (Auto) 0.4 Eos # (Auto) 0.1 Baso # (Auto) 0.1 Neutrophils % (Manual) 88 H Lymphocytes % (Manual) 7 L Monocytes % (Manual) 5 Platelet Estimate Normal Large Platelets Present Sodium 137 Potassium 5.6 H Chloride 100 Carbon Dioxide 30 Anion Gap 12 BUN 18 H Creatinine 0.8 Est GFR ( Amer) > 60 Est GFR (Non-Af Amer) > 60 POC Glucose (mg/dL) 124 H Random Glucose 115 H D Calcium 9.2 Troponin I < 0.0120
[2018-11-28] MEDS ORDERED: Dextrose 50% SYRINGE Inj (50 ml) IV PRN (16:56)
[2018-11-28] MEDS ORDERED: Glucagon Recombinant 1 mg Inj IM PRN (16:56)
[2018-11-28] MEDS: (Novolin R) Insulin Human Regular 100 units/ml vial SC SCH (22:32)
[2018-11-29 01:34] LABS: CK-MB 0.88 ng/mL (0.0-3.38)
[2018-11-29 01:37] VITALS: RESP 20
[2018-11-29 06:53] LABS: BASO # 0.1 K/uL (0.0-0.2); BASO % 1.3 % (0.0-2.0); EOS # 0.3 K/uL (0.0-0.7); EOS % 2.5 % (0.0-4.0); HEMOGLOBIN 14.4 g/dL (11.0-16.0); LYMPH # 1.5 K/uL (1.0-4.3); LYMPH % 14.8 % (20.0-40.0); MEAN CORPUSCULAR HEMOGLOBIN 27.6 pg (27.0-31.0); MEAN CORPUSCULAR HGB CONC 33.6 g/dL (33.0-37.0); MEAN PLATELET VOLUME 10.5 fL (7.2-11.7); MONO # 0.5 K/uL (0.0-0.8); MONO % 4.9 % (0.0-10.0); NEUT # 7.9 K/uL (1.8-7.0); NEUT % 76.5 % (50.0-75.0); NRBC % 0.1 % (0.0-2.0); RBC 5.21 Mil/uL (3.80-5.20); RED CELL DISTRIBUTION WIDTH 14.5 % (11.5-14.5); WHITE BLOOD COUNT 10.3 K/uL (4.8-10.8)
[2018-11-29 07:30] LABS: ALB/GLOB RATIO 1.2 (1.0-2.1); ALBUMIN 3.8 g/dL (3.5-5.0); ALT/SGPT 14 U/L (9-52); AST/SGOT 33 U/L (14-36); BLOOD UREA NITROGEN 20 mg/dL (7-17); GFR NON-AFRICAN AMERICAN 52
[2018-11-29] MEDS: (Novolin R) Insulin Human Regular 100 units/ml vial SC SCH ×4 (07:30→21:42)
[2018-11-29] MEDS ORDERED: Enoxaparin 40 mg Syringe SC SCH (10:00)
[2018-11-29 12:11] LABS: CK-MB 0.51 ng/mL (0.0-3.38)
--- NOTE | 2018-11-29 12:11 | CP.PCM.PN ---
Subjective - Date & Time of Evaluation Date of Evaluation: 11/29/18 Time of Evaluation: 12:11 - Subjective Subjective: CHIEF COMPLAINTS TODAY : No further chest pain occasional palpitation Some symptoms of reflux esophagitis Blood pressure stable ROS. HEENT : N. Resp : No cough, wheezing ,pleuritic CP ,or hemoptysis Cardio : No anginal CP, PND, orthopnea, palpitation GI : No abd.pain, n/v ,diarrhea or GI bleeding . 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 Musculoskel : No joint swelling , Derm : No rash Psych : Normal affect. Ext : No swelling ,calf pain PE. Pt. is alert awake in no distress. V.S As noted in the chart Head ,ear nose,throat and eyes : Normal. Neck : Supple with normal carotids. Lungs: Clear air entry. Heart : S1 & S2 normal with S4. No murmur. Abd : Soft non tender with normal bowel sounds. Neuro : Moves all ext. with no localized deficit. Ext : No edema with intact pulses.Non tender calves Derm : No rashes or decubitus ulcer. LABS/RADIOLOGY: ASSESSMENT/PLAN : Follow-up cardiac enzymes continue monitor blood pressure. Objective - Vital Signs/Intake and Output Vital Signs (last 24 hours): Temp Pulse Resp BP Pulse Ox 98.0 F 58 L 20 114/62 98 11/29/18 07:25 11/29/18 07:25 11/29/18 07:25 11/29/18 11:13 11/29/18 07:25 - Medications Medications: Current Medications Dextrose (Dextrose 50% Inj) 0 ml IV STAT PRN; Protocol PRN Reason: Hypoglycemia Protocol Dextrose (Glutose 15) 0 gm PO ONCE PRN; Protocol PRN Reason: Hypoglycemia Protocol Enalapril Maleate (Vasotec) 20 mg PO DAILY [facility] Last Admin: 11/29/18 09:09 Dose: 20 mg Famotidine (Pepcid) 20 mg PO DAILY [facility] Last Admin: 11/29/18 09:10 Dose: 20 mg Glucagon (Glucagen Diagnostic Kit) 0 mg IM STAT PRN; Protocol PRN Reason: Hypoglycemia Protocol Heparin Sodium (Porcine) (Heparin) 5,000 units SC Q12 [facility] Last Admin: 11/29/18 11:13 Dose: 5,000 units Dextrose (Dextrose 5% In Water 1000 Ml) 1,000 mls @ 0 mls/hr IV .Q0M PRN; Protocol PRN Reason: Hypoglycemia Protocol Insulin Human Regular (Novolin R) 0 unit SC ACHS [facility]; Protocol Last Admin: 11/29/18 07:30 Dose: Not Given [facility] Last Admin: 11/29/18 09:09 Dose: 500 mg Metoprolol Tartrate (Lopressor) 50 mg PO DAILY [facility] Last Admin: 11/29/18 09:09 Dose: 50 mg Sitagliptin Phosphate (Januvia) 1 mg PO DAILY [facility] Last Admin: 11/29/18 11:12 Dose: Not Given Tramadol HCl (Ultram) 50 mg PO TID PRN PRN Reason: Arthritis - Labs Labs: 11/29/18 06:36 11/29/18 06:36
--- NOTE | 2018-11-29 12:25 | CARD ---
APPROVED REPORT Date of service: 11/28/2018 EKG Measurement Heart [id number] <Conclusion> Sinus bradycardia Left ventricular hypertrophy with repolarization abnormality Prolonged QT Abnormal ECG
[2018-11-30] MEDS: (Novolin R) Insulin Human Regular 100 units/ml vial SC SCH ×3 (08:38→16:56)
--- NOTE | 2018-11-30 13:58 | CP.PCM.PN ---
Subjective - Date & Time of Evaluation Date of Evaluation: 11/30/18 Time of Evaluation: 13:58 - Subjective Subjective: CHIEF COMPLAINTS TODAY : No further chest pain occasional palpitation Some symptoms of reflux esophagitis Blood pressure stable ROS. HEENT : N. Resp : No cough, wheezing ,pleuritic CP ,or hemoptysis Cardio : No anginal CP, PND, orthopnea, palpitation GI : No abd.pain, n/v ,diarrhea or GI bleeding . 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 Musculoskel : No joint swelling , Derm : No rash Psych : Normal affect. Ext : No swelling ,calf pain PE. Pt. is alert awake in no distress. V.S As noted in the chart Head ,ear nose,throat and eyes : Normal. Neck : Supple with normal carotids. Lungs: Clear air entry. Heart : S1 & S2 normal with S4. No murmur. Abd : Soft non tender with normal bowel sounds. Neuro : Moves all ext. with no localized deficit. Ext : No edema with intact pulses.Non tender calves Derm : No rashes or decubitus ulcer. LABS/RADIOLOGY: ASSESSMENT/PLAN : Follow-up cardiac enzymes continue monitor blood pressure. Objective - Vital Signs/Intake and Output Vital Signs (last 24 hours): Temp Pulse Resp BP Pulse Ox 98.2 F 64 20 160/78 H 96 11/30/18 07:00 11/30/18 07:00 11/30/18 07:00 11/30/18 10:15 11/30/18 07:00 - Medications Medications: Current Medications Dextrose (Dextrose 50% Inj) 0 ml IV STAT PRN; Protocol PRN Reason: Hypoglycemia Protocol Dextrose (Glutose 15) 0 gm PO ONCE PRN; Protocol PRN Reason: Hypoglycemia Protocol Enalapril Maleate (Vasotec) 20 mg PO DAILY [facility] Last Admin: 11/30/18 10:15 Dose: 20 mg Famotidine (Pepcid) 20 mg PO DAILY [facility] Last Admin: 11/30/18 10:15 Dose: 20 mg Glucagon (Glucagen Diagnostic Kit) 0 mg IM STAT PRN; Protocol PRN Reason: Hypoglycemia Protocol Heparin Sodium (Porcine) (Heparin) 5,000 units SC Q12 [facility] Last Admin: 11/30/18 10:16 Dose: 5,000 units Dextrose (Dextrose 5% In Water 1000 Ml) 1,000 mls @ 0 mls/hr IV .Q0M PRN; Protocol PRN Reason: Hypoglycemia Protocol Insulin Human Regular (Novolin R) 0 unit SC ACHS [facility]; Protocol Last Admin: 11/30/18 13:03 Dose: 2 unit Metformin HCl (Glucophage) 500 mg PO BIDCC [facility] Last Admin: 11/30/18 10:15 Dose: 500 mg Metoprolol Tartrate (Lopressor) 50 mg PO DAILY [facility] Last Admin: 11/30/18 10:16 Dose: 50 mg Sitagliptin Phosphate (Januvia) 50 mg PO DAILY [facility] Last Admin: 11/30/18 10:16 Dose: 50 mg Tramadol HCl (Ultram) 50 mg PO TID PRN PRN Reason: Arthritis - Labs Labs: 11/29/18 06:36 11/29/18 06:36
--- NOTE | 2018-11-30 14:33 | CARD ---
APPROVED REPORT Date of service: 11/29/2018 EXAM: Two-dimensional and M-mode echocardiogram with Doppler and color Doppler. Other Information Quality : TDSRhythm : INDICATION Cardiac Disease: CAD Chest Pain RISK FACTORS Hypertension 2D DIMENSIONS IVSd1.0 (0.7-1.1cm)LVDd4.8 (3.9-5.9cm) LVOT Diameter2.0 (1.8-2.4cm)PWd1.0 (0.7-1.1cm) LA Ephczd59 (18-58mL)LVDs3.1 (2.5-4.0cm) FS (%) 35.3 %LVEF (%)55.0 (>50%) LVEF (Garcia's)50 % M-Mode DIMENSIONS Left Atrium (MM)3.90 (2.5-4.0cm)IVSd1.22 (0.7-1.1cm) Aortic Root3.28 (2.2-3.7cm)LVDd4.27 (4.0-5.6cm) Aortic Cusp Exc.1.60 (1.5-2.0cm)PWd1.11 (0.7-1.1cm) FS (%) 31 %LVDs2.97 (2.0-3.8cm) LVEF (%)55 (>50%) Aortic Valve AoV Peak Pthvtean460.2cm/sAoV VTI43.7cmAO Peak GR.18mmHg LVOT Peak Tfjntpte07.4cm/sLVOT VTI21.19cmAO Mean GR.10mmHg ALBA (VMAX)1.99ic2HYD (VTI)1.48cm2 Mitral Valve MV E Gkxwzpze38.3cm/sMV A Mcsrncch25.6cm/sE/A ratio0.6 TDI Lateral E' Peak V4.74cm/sMedial E' Peak V2.93cm/sE/Lateral E'11.9 E/Medial E'19.2 Tricuspid Valve TR Peak Iwvjxasq180es/sTR Peak Gr.57bvRjPVOB46dzXr LEFT VENTRICLE The left ventricle is normal size. There is normal left ventricular wall thickness. The left ventricular function is normal. The left ventricular ejection fraction is within the normal range. No regional wall motion abnormalities noted. The left ventricular diastolic function is normal. No left ventricle thrombus noted on this study. There is no ventricular septal defect visualized. There is no left ventricular aneurysm. There is no mass noted in the left ventricle. RIGHT VENTRICLE The right ventricle is normal size. There is normal right ventricular wall thickness. The right ventricular systolic function is normal. ATRIA The left atrium is mildly dilated. The right atrium size is normal. The interatrial septum is intact with no evidence for an atrial septal defect. AORTIC VALVE The aortic valve is moderately thickened.. No aortic regurgitation is present. There is mild to moderate valvular aortic stenosis.AV area is 1.7 cm2. There is no aortic valvular vegetation. MITRAL VALVE The mitral valve is normal in structure and function. There is no evidence of mitral valve prolapse. There is no mitral valve stenosis. Mitral regurgitation is mild. TRICUSPID VALVE The tricuspid valve is normal in structure and function. There is mild tricuspid regurgitation. Right ventricular systolic pressure is estimated at less than 30 mmHg. There is no tricuspid valve prolapse or vegetation. There is no tricuspid valve stenosis. PULMONIC VALVE The pulmonary valve is normal in structure and function. There is no pulmonic valvular regurgitation. There is no pulmonic valvular stenosis. GREAT VESSELS The aortic root is normal in size. The ascending aorta is normal in size. The pulmonary artery is normal. The IVC is normal in size and collapses >50% with inspiration. PERICARDIAL EFFUSION The pericardium appears normal. There is no pleural effusion. <Conclusion> The left ventricular function is normal. The left ventricular ejection fraction is within the normal range. No regional wall motion abnormalities noted. There is mild to moderate valvular aortic stenosis.AV area is 1.7 cm2. Mitral regurgitation is mild.
[2018-11-30 16:34] VITALS: PULSE 56
[2018-11-30 16:42] VITALS: BP 138/77; TEMP 98.4; O2SAT 95
== END 2018-11-30 19:54 | disposition home or self-care (01) ==
LOC: C.ER 14:22 → C.9E 15:19 → C.6T 16:34
PROVIDERS: ADMIT Internal Medicine Cardiovascular Disease; ATTEND Internal Medicine Cardiovascular Disease
DX: I16.0 Hypertensive urgency (principal); I25.10 Atherosclerotic heart disease of native coronary artery without angina pectoris; J44.9 Chronic obstructive pulmonary disease, unspecified; Z79.4 Long term (current) use of insulin; Z87.891 Personal history of nicotine dependence; Z95.5 Presence of coronary angioplasty implant and graft; E11.9 Type 2 diabetes mellitus without complications; K29.70 Gastritis, unspecified, without bleeding; K44.9 Diaphragmatic hernia without obstruction or gangrene
CPT/HCPCS: 36415; 71045; 80048; 80053; 82948; 84484; 85025; 93005; 93306; 96372; 99285; G0378; J1644

== ENCOUNTER 2019-01-28 14:35 | Emergency (ER) | payer MEDICARE, MEDICAID ==
[2019-01-28 14:35] VITALS: BMI 29.4
[2019-01-28 15:07] VITALS: O2SAT 97
[2019-01-28 19:37] LABS: URINE BILIRUBIN NEGATIVE (NEGATIVE); URINE BLOOD NEGATIVE (NEGATIVE); URINE CLARITY Clear (Clear); URINE COLOR Straw (YELLOW); URINE GLUCOSE (UA) NORMAL (Normal); URINE LEUKOCYTE ESTERASE NEG Leu/uL (Negative); URINE PROTEIN NEGATIVE (NEGATIVE); URINE UROBILINOGEN NORMAL mg/dL (0.2-1.0)
--- NOTE | 2019-01-28 20:02 | C.PDOC ---
History Of Present Illness Patient is a 88 year old woman who presents to the ED c/o several day hx of bilateral leg and bilateral shoulder pain. Patient also reports having low back pain and dysuria for several days. Patient is baseline able to ambulate with a cane. She denies any injury, abdominal pain, CP, SOB, dizziness, or syncopy. Time Seen by Provider: 01/28/19 17:08 Chief Complaint (Nursing): Back Pain History Per: Patient History/Exam Limitations: no limitations Onset/Duration Of Symptoms: Days Current Symptoms Are (Timing): Still Present Quality Of Discomfort: "Pain" Recent travel outside of the [place]: No Additional History Per: Patient Past Medical History Reviewed: Historical Data, Nursing Documentation, Vital Signs Vital Signs: Last Vital Signs Temp 97.8 F 01/28/19 18:46 Pulse 69 01/28/19 18:46 Resp 16 01/28/19 18:46 BP 188/81 H 01/28/19 18:46 Pulse Ox 97 01/28/19 18:46 - Medical History PMH: CAD, COPD, Gall Bladder Disease, HTN, Hypercholesterolemia Denies: Chronic Kidney Disease Surgical History: Cholecystectomy, Coronary Stent, - [facility] Procedures DILATION OF 1 COR ART WITH 2 DRUG-ELUT, PERC APPROACH (01/17/17) DILATION OF 1 COR ART WITH DRUG-ELUT INTRA, PERC APPROACH (01/17/17) EXCISION OF STOMACH, ENDO, DIAGN (05/18/18) FLUOROSCOPY OF LEFT HEART USING LOW OSMOLAR CONTRAST (01/17/17) MEASURE OF CARDIAC SAMPL & PRESSURE, L HEART, PERC APPROACH (01/17/17) OTHER ENDOSCOPY OF SM INTEST (01/02/14) RADIOGRAPHY OF GALLBLADDER & BILE DUCT USING L OSM CONTRAST (11/21/15) RESECTION OF GALLBLADDER, PERCUTANEOUS ENDOSCOPIC APPROACH (11/21/15) ULTRASONOGRAPHY OF GALLBLADDER AND BILE DUCTS (11/19/15) Family History: States: Unknown Family Hx - Social History Hx Tobacco Use: No Hx Alcohol Use: No Hx Substance Use: No - Immunization History Hx Tetanus Toxoid Vaccination: Yes Hx Influenza Vaccination: Yes Hx Pneumococcal Vaccination: Yes Review Of Systems Cardiovascular: Negative for: Chest Pain Respiratory: Negative for: Shortness of Breath Gastrointestinal: Negative for: Abdominal Pain Genitourinary: Positive for: Dysuria Musculoskeletal: Positive for: Shoulder Pain (bilateral), Back Pain (lower back ), Leg Pain (bilateral) Neurological: Negative for: Dizziness, Other (syncopy) Physical Exam - Physical Exam Appears: Non-toxic, No Acute Distress Skin: Normal Color, Warm Head: Atraumatic, Normacephalic Oral Mucosa: Moist Neck: Normal ROM, Supple Chest: Symmetrical, No Deformity Cardiovascular: Rhythm Regular, No Murmur Respiratory: Normal Breath Sounds, No Rales, No Rhonchi, No Wheezing Gastrointestinal/Abdominal: Soft, No Tenderness Back: Vertebral Tenderness (paravertebral tenderness in lumbar spine. ), No Other (bony tenderness) Extremity: Normal ROM (all extremities), Tenderness (minor tenderness to bilateral shoulders in upper trapezius area. no tenderness in legs ), No Calf Tenderness, No Swelling (bilateral legs) Pulses: Left Dorsalis Pedis: Normal, Right Dorsalis Pedis: Normal Neurological/Psych: Oriented x3, Normal Speech, Normal Cognition, Normal Motor, Normal Sensation ED Course And Treatment - Laboratory Results Lab Results: Urine Color Straw (YELLOW) 01/28/19 19:31 Urine Clarity Clear (Clear) 01/28/19 19:31 Urine pH 6.0 (5.0-8.0) 01/28/19 19:31 Ur Specific Richardson 1.005 (1.003-1.030) 01/28/19 19:31 Urine Protein Negative mg/dL (NEGATIVE) 01/28/19 19:31 Urine Glucose (UA) Normal mg/dL (Normal) 01/28/19 19:31 Urine Ketones Negative mg/dL (NEGATIVE) 01/28/19 19:31 Urine Blood Negative (NEGATIVE) 01/28/19 19:31 Urine Nitrate Negative (NEGATIVE) 01/28/19 19:31 Urine Bilirubin Negative (NEGATIVE) 01/28/19 19:31 Urine Urobilinogen Normal mg/dL (0.2-1.0) 01/28/19 19:31 Ur Leukocyte Esterase Neg Unique/uL (Negative) 01/28/19 19:31 Urine WBC (Auto) < 1 /hpf (0-5) 01/28/19 19:31 Urine RBC (Auto) 1 /hpf (0-3) 01/28/19 19:31 O2 Sat by Pulse Oximetry: 97 (on RA) Pulse Ox Interpretation: Normal Medical Decision Making Medical Decision Making: Plan: Motrin 600mg PO Urinalysis UA showed no evidence of UTI. Patient re-evaluated after medication given, reports improvement in pain. Recommended NSAIDs at home for muscle/joint pain. Follow up with PMD. Return to the ED for any new or worsening symptoms. Patient able to ambulate with cane, which is how she ambulates at baseline. Disposition - Disposition Disposition: HOME/ ROUTINE Disposition Time: 19:57 Condition: STABLE Additional Instructions: HERNAN SKELTON, thank you for letting us take care of you today. Your provider was Hawa High MD and you were treated for BODY PAIN. The emergency medical care you received today was directed at your acute symptoms. If you were prescribed any medication, please fill it and take as directed. It may take several days for your symptoms to resolve. Return to the Emergency Department if your symptoms worsen, do not improve, or if you have any other problems. Please contact your doctor or call one of the physicians/clinics you have been referred to that are listed on the Patient Visit Information form that is included in your discharge packet. Bring any paperwork you were given at discharge with you along with any medications you are taking to your follow up visit. Our treatment cannot replace ongoing medical care by a primary care provider outside of the emergency department. Thank you for allowing the [facility] team to be part of your care today. If you had an X-Ray or CT scan: A Radiologist will review the ED reading if any change in treatment is needed we will contact you. If you had a blood, urine, or wound culture: It will take several days for the results, if any change in treatment is needed we will contact you. If you had an STI test: It will take 48 hours for the results. Please call after 1 week if you have not heard back. Instructions: Muscle and Bone Pain (DC) Forms: [employer] (Mozambican) Print Language: ARMENIAN - Clinical Impression Clinical Impression: Bilateral leg pain, Bilateral shoulder pain - Scribe Statement The provider has reviewed the documentation as recorded by the Oli Sosa All medical record entries made by the Julesibmary were at my direction and personally dictated by me. I have reviewed the chart and agree that the record accurately reflects my personal performance of the history, physical exam, medical decision making, and the department course for this patient. I have also personally directed, reviewed, and agree with the discharge instructions and disposition.
[2019-01-28 20:10] VITALS: BP 162/80; PULSE 72; RESP 20; TEMP 98
== END 2019-01-28 20:08 | disposition home or self-care (01) ==
LOC: C.ER 14:35
DX: M79.605 Pain in left leg (principal); M79.604 Pain in right leg; M25.512 Pain in left shoulder; M25.511 Pain in right shoulder